=== PATIENT | male | born 1950 | race Caucasian/White ===

== ENCOUNTER 2022-05-28 10:17 | Outpatient (RCR) | payer MEDICAID, SELFPAY | END 2023-05-18 14:38 | disposition home or self-care (01) | LOC: MOW 10:17 | PROVIDERS: PCP Family Medicine; Visit Provider Family Medicine | DX: Z76.0 Encounter for issue of repeat prescription (principal) | CPT/HCPCS: S5170 ==

== ENCOUNTER 2022-11-18 13:32 | Emergency (ER) | payer OTHER, SELFPAY ==
[2022-11-18 13:44] VITALS: BP 131/68; PULSE 64; RESP 16; TEMP 36.2; O2SAT 96; BMI 32.4
--- NOTE | 2022-11-18 13:59 | CRLHL7_ITS ---
For Patients: As a result of the Century Cures Act, medical imaging exams and procedure reports are released immediately into your electronic medical record. You may view this report before your referring provider. If you have questions, please contact your health care provider. INDICATION: Headache and nausea. History of lymphoma. TECHNIQUE: CT head without contrast. COMPARISON: None. FINDINGS: CSF spaces: Within normal limits for age. Brain parenchyma: No intracranial bleed or mass effect. Moderate low density in the deep white matter. Duarte-white differentiation is preserved. Skull base and calvarium: The visualized paranasal sinuses and mastoid air cells demonstrate no acute or significant findings. The visualized orbits are grossly unremarkable. Atherosclerosis. Defect at the medial wall of the right orbit consistent with an old fracture. IMPRESSION: 1. No intracranial bleed or mass effect. 2. Nonspecific white matter disease, likely microangiopathy. Please note that all CT scans at this facility use dose modulation, iterative reconstruction, and/or weight-based dosing when appropriate to reduce radiation dose to as low as reasonably achievable. Dictated by Christian Lamb MD @ 11/18/2022 2:55:55 PM (Electronically Signed)
--- NOTE | 2022-11-18 14:00 | ED.GENADULT ---
HPI - General Adult General Date Seen: 11/18/22 Chief complaint: Nausea/Vomiting Stated complaint: Abdominal pain, headache, short of breath Time Seen by Provider: 11/18/22 13:36 Source: patient Mode of arrival: ambulatory Limitations: no limitations History of Present Illness HPI narrative: Patient is a 72-year-old male with a history of lymphoma remotely, he is here for evaluation of headache and nausea. Headache started about a week ago at least. He describes it as being in the back of his head and between his ears. He feels like he has been a little more unsteady than usual as well though does not describe true vertigo. Has not had falls. No trauma. Has not had any vomiting. For the past 4 days or so has had nausea. No abdominal pain. No fevers, chest pain, cough, difficulty breathing, sore throat, diarrhea, constipation, black or bloody stools. He is not taking any medication for headache. For the nausea he tried 1 dose of something he has at home which starts with a P, possibly prochlorperazine. He tried this on Tuesday and says it did not help. He has been drinking a lot of water but says that he gets meals on wheels and the food is unappetizing. Related Data Home Medications Medication Instructions Recorded Confirmed acetaminophen 325 mg tablet 325 mg PO Q6H PRN 11/18/22 11/18/22 (Tylenol) acyclovir 400 mg tablet 400 mg PO BID 11/18/22 11/18/22 famotidine 20 mg tablet 20 mg PO DAILY 11/18/22 11/18/22 ferrous sulfate 325 mg (65 mg 325 mg PO DAILY 11/18/22 11/18/22 iron) tablet fluticasone propionate 50 1 spray intranasal BID PRN 11/18/22 11/18/22 mcg/actuation nasal spray,suspension loratadine 10 mg tablet (Allergy 10 mg PO DAILY 11/18/22 11/18/22 Relief (loratadine)) melatonin 5 mg capsule mg 11/18/22 omeprazole 20 mg capsule,delayed 20 mg PO DAILY 11/18/22 11/18/22 release polyethylene glycol 3350 17 17 g PO DAILY 11/18/22 11/18/22 gram/dose oral powder (Gavilax) primidone 50 mg tablet 50 mg PO QHS 11/18/22 11/18/22 prochlorperazine maleate 10 mg 10 mg PO Q6-8H PRN 11/18/22 11/18/22 tablet (Compazine) spironolactone 25 mg tablet 25 mg PO BID 11/18/22 11/18/22 sulfamethoxazole-trimethoprim 11/18/22 tamsulosin 0.4 mg capsule (Flomax) 0.4 mg PO DAILY 11/18/22 11/18/22 trazodone 100 mg tablet 100 mg PO QHS PRN 11/18/22 11/18/22 venlafaxine 150 mg tablet,extended 150 mg PO DAILY 11/18/22 11/18/22 release 24 hr Allergies Allergy/AdvReac Type Severity Reaction Status Date / Time No Known Drug Allergies Allergy Verified 11/18/22 13:43 Review of Systems Status of ROS: Reports: 10 or more systems reviewed and unremarkable except as noted in History and below [facility] Social History Smoking Status: Current every day smoker What tobacco products do you use: cigarettes Smoking packs per day: 0.5 Smoking cigarettes per day: 10.0 How often do you have a drink containing alcohol: never AUDIT-C Alcohol total score: 0 Non-prescribed substance use: denies use service: Yes Exam Narrative: Exam Narrative: Vital signs as noted above. In general, an alert, nontoxic male. Head: Normocephalic, atraumatic. Eyes: Pupils are equal reactive. Extraocular movements are full. Conjunctivae are normal. No icterus. ENT: Mucous membranes are moist. Throat is normal. Neck: Supple without lymphadenopathy. Heart: Regular rate and rhythm. No murmur or rub. Lungs: Clear bilaterally. No increased work of breathing, crackles or wheezes. No CVA tenderness. Abdomen: Soft and nondistended, nontender to palpation. Tumor and. Extremities: Well perfused. No edema. No calf tenderness. Pulses intact. Neurologic: Patient is alert and oriented to person and place. Speech is fluent. Face is symmetric. Moves all extremities equally. Affect: Flat. Skin: Warm and dry. Well perfused. Const: Vital Signs, click to edit/add: Vital Signs - 24 hr 11/18/22 13:44 11/18/22 15:24 Temperature 97.2 F L 97.6 F Pulse Rate [Right Pulse Oximeter] 64 70 Respiratory Rate 16 16 Blood Pressure [Ri ght Upper Arm] 131/68 128/78 Pulse Oximetry 96 95 Oxygen Delivery Me thod Room Air Room Air Documenting provider has reviewed patient's vital signs: yes Course Course Hospital Course: I evaluated a number of labs and did a CT of the head looking for possible hemorrhage or mass. CT of the head was negative by my review and read as negative by Radiology aside from some chronic small-vessel ischemic changes. Labs looking for an infectious or metabolic cause for his symptoms were unrevealing. His white blood cell count is normal, hemoglobin 14.5. His electrolytes are entirely within normal limits, BUN 19, creatinine 1.3. Blood sugar was normal at 99, lactate was 1.2. LFTs were normal. CRP was 0.5. TSH is pending, lipase is 169. Urinalysis had 0-2 red cells and 0-2 white blood cells. COVID was negative. EKG by my review showed normal sinus rhythm ventricular rate of 60 without acute ischemic changes. His troponin was 0. Reviewed with him that I am not finding anything as a clear cause for his symptoms. He does not have any abdominal pain or tenderness, I think abdominal imaging is not necessary today. Discussed with him I would like him to be seen in clinic next week for recheck and determination of whether further evaluation is needed. If he has worsening symptoms at any time, severe pain, develops abdominal pain, vomiting, fever or other changes, return to the emergency department. He does feel better after fluids and Zofran. I am prescribing some Zofran for him to try at home and he can certainly use Tylenol or dose or 2 of ibuprofen for his headache if he decides that he would like to take something. He says he does not like to take pills. Vital Signs Vital signs: Initial Vital Signs Temperature 97.2 F L 11/18/22 13:44 Temperature Source Temporal Artery Scan 11/18/22 13:44 Pulse Rate 64 11/18/22 13:44 Pulse Rhythm Regular 11/18/22 13:44 Respiratory Rate 16 11/18/22 13:44 Blood Pressure 131/68 11/18/22 13:44 Blood Pressure Mean 89 11/18/22 13:44 Blood Pressure Position Sitting 11/18/22 13:44 Pulse Oximetry 96 11/18/22 13:44 Oxygen Delivery Method Room Air 11/18/22 13:44 Vital Signs Temperature 97.2 F L 11/18/22 13:44 Pulse Rate 64 11/18/22 13:44 Respiratory Rate 16 11/18/22 13:44 Blood Pressure 131/68 11/18/22 13:44 Pulse Oximetry 96 11/18/22 13:44 Oxygen Delivery Method Room Air 11/18/22 13:44 Temperature 97.6 F 11/18/22 15:24 Pulse Rate 70 11/18/22 15:24 Respiratory Rate 16 11/18/22 15:24 Blood Pressure 128/78 11/18/22 15:24 Pulse Oximetry 95 11/18/22 15:24 Oxygen Delivery Method Room Air 11/18/22 15:24 Medical Decision Making Lab Data Labs: Lab Results 11/18/22 11/18/22 11/18/22 Range/Units 13:59 14:13 14:20 WBC 5.35 (4.50-11.00) K/uL RBC 4.63 (4.30-5.90) m/uL Hgb 14.5 (13.5-17.5) gm/dL Hct 42.2 (37.0-53.0) % MCV 91 (80-100) fL MCH 31 (26-34) pg MCHC 34 (32-36) gm/dL RDW Coeff of Aidee 12.3 (11.5-15.5) % Plt Count 226 (140-440) K/uL Neut % (Auto) 65.8 (42.0-72.0) % Lymph % (Auto) 22.8 (20-44) % Col[place]itt % (Auto) 7.5 (0.0-11.0) % Eos % (Auto) 2.4 (0.0-7.0) % Baso % (Auto) 1.1 (0.0-3.0) % Neut # (Auto) 3.52 (1.7-7.0) K/uL Lymph # (Auto) 1.22 (0.90-2.90) K/uL [place] # (Auto) 0.40 (0.00-0.90) K/UL Eos # (Auto) 0.13 (0.00-0.50) K/uL Baso # (Auto) 0.06 (0.00-0.30) K/uL Abs Immat Gran (auto) 0.02 (0.00-0.30) K/uL Imm/Tot Granulo (auto) 0.4 % Sodium 135 (135-149) mmol/L Potassium 4.0 (3.6-5.1) mmol/L Chloride 104 (96-114) mmol/L Carbon Dioxide 23 (20-32) mmol/L BUN 19 (7-30) mg/dL Creatinine 1.3 (0.5-1.5) mg/dL Estimated Creat Clear 50.42 Estimated GFR 59 ml/min Glucose 99 (60-115) mg/dL Lactate 1.2 (0.5-1.9) mmol/L Calcium 9.6 (8.4-10.6) mg/dL Total Bilirubin 0.4 (0.1-1.5) mg/dL Direct Bilirubin 0.1 (0.0-0.5) mg/dL AST 28 (12-35) U/L ALT 28 (4-50) U/L Alkaline Phosphatase 88 (40-150) U/L C-Reactive Protein 0.5 (0.5-1.0) mg/dL Total Protein 7.2 (6.0-8.3) g/dL Albumin 4.2 (3.3-5.0) g/dL Lipase 169 (23-300) U/L Urine Color (Yellow) Urine Appearance (Clear) Urine pH (5.0-8.5) Ur Specific Bowman (1.000-1.030) Urine Protein (Negative) Urine Glucose (UA) (Negative) Urine Ketones (Negative) Urine Blood (Negative) Urine Nitrite (Negative) Urine Bilirubin (Negative) Urine Urobilinogen (0.2-1.0) Ur Leukocyte Esterase (Negative) Urine RBC (0-2) Urine WBC (0-5) Ur Squamous Epith Cells (None-Few) Urine Bacteria (None) SARS-CoV-2 (PCR) Negative SARS-CoV-2 (Negative) Influenza Type A (PCR) Negative PCR FLU A (Negative) Influenza Type B (PCR) Negative PCR FLU B (Negative) RSV (PCR) Negative PCR RSV (Negative) POC Troponin I 0.00 L (0.01-0.04) ng/ml 11/18/22 Range/Units 15:00 WBC (4.50-11.00) K/uL RBC (4.30-5.90) m/uL Hgb (13.5-17.5) gm/dL Hct (37.0-53.0) % MCV (80-100) fL MCH (26-34) pg MCHC (32-36) gm/dL RDW Coeff of Aidee (11.5-15.5) % Plt Count (140-440) K/uL Neut % (Auto) (42.0-72.0) % Lymph % (Auto) (20-44) % Colquitt % (Auto) (0.0-11.0) % Eos % (Auto) (0.0-7.0) % Baso % (Auto) (0.0-3.0) % Neut # (Auto) (1.7-7.0) K/uL Lymph # (Auto) (0.90-2.90) K/uL [place] # (Auto) (0.00-0.90) K/UL Eos # (Auto) (0.00-0.50) K/uL Baso # (Auto) (0.00-0.30) K/uL Abs Immat Gran (auto) (0.00-0.30) K/uL Imm/Tot Granulo (auto) % Sodium (135-149) mmol/L Potassium (3.6-5.1) mmol/L Chloride (96-114) mmol/L Carbon Dioxide (20-32) mmol/L BUN (7-30) mg/dL Creatinine (0.5-1.5) mg/dL Estimated Creat Clear Estimated GFR ml/min Glucose (60-115) mg/dL Lactate (0.5-1.9) mmol/L Calcium (8.4-10.6) mg/dL Total Bilirubin (0.1-1.5) mg/dL Direct Bilirubin (0.0-0.5) mg/dL AST (12-35) U/L ALT (4-50) U/L Alkaline Phosphatase (40-150) U/L C-Reactive Protein (0.5-1.0) mg/dL Total Protein (6.0-8.3) g/dL Albumin (3.3-5.0) g/dL Lipase (23-300) U/L Urine Color Yellow (Yellow) Urine Appearance Clear (Clear) Urine pH 5.5 (5.0-8.5) Ur Specific Bowman 1.025 (1.000-1.030) Urine Protein Negative (Negative) Urine Glucose (UA) Negative (Negative) Urine Ketones Negative (Negative) Urine Blood Negative (Negative) Urine Nitrite Negative (Negative) Urine Bilirubin 1+ A (Negative) Urine Urobilinogen 0.2 (0.2-1.0) Ur Leukocyte Esterase Negative (Negative) Urine RBC 0-2 (0-2) Urine WBC 0-2 (0-5) Ur Squamous Epith Cells Few (None-Few) Urine Bacteria None (None) SARS-CoV-2 (PCR) (Negative) Influenza Type A (PCR) (Negative) Influenza Type B (PCR) (Negative) RSV (PCR) (Negative) POC Troponin I (0.01-0.04) ng/ml Discharge Plan Discharge Clinical Impression: Headache, Nausea Patient Disposition: Home, Self-Care Condition: Improved Instructions: General Headache (ED) Additional Instructions: All of your test today are normal, your blood counts, kidney function, liver function, electrolytes etcetera he are within normal limits. A CT scan of your head is likewise normal. For now, I am prescribing a different nausea medicine for you to try. I would recommend that you follow-up with your primary doctor next week for recheck. If at any point you develop new symptoms such as abdominal pain, fever, vomiting, or other worsening, return to the emergency department for re-evaluation. Your thyroid level is pending, we will call you if anything needs to be addressed. If you change your mind and decide you would like to take something for headache, you can try Tylenol or a dose or 2 of ibuprofen. Prescriptions: No Action acyclovir 400 mg tablet 400 mg PO BID famotidine 20 mg tablet 20 mg PO DAILY ferrous sulfate 325 mg (65 mg iron) tablet 325 mg PO DAILY omeprazole 20 mg capsule,delayed release(DR/EC) 20 mg PO DAILY primidone 50 mg tablet 50 mg PO QHS spironolactone 25 mg tablet 25 mg PO BID sulfamethoxazole-trimethoprim Rx Instructions: Takes one tablet PO BID on Tuesdays and Fridays tamsulosin [Flomax] 0.4 mg capsule 0.4 mg PO DAILY venlafaxine 150 mg tablet extended release 24hr 150 mg PO DAILY trazodone 100 mg tablet 100 mg PO QHS PRN fluticasone propionate 50 mcg/actuation spray,suspension 1 spray intranasal BID PRN Rx Instructions: administer into each nostril loratadine [Allergy Relief (loratadine)] 10 mg tablet 10 mg PO DAILY polyethylene glycol 3350 [Gavilax] 17 gram/dose powder 17 g PO DAILY prochlorperazine maleate [Compazine] 10 mg tablet 10 mg PO Q6-8H PRN melatonin 5 mg capsule acetaminophen [Tylenol] 325 mg tablet 325 mg PO Q6H PRN Follow Up/Referrals: Camron Dos Santos MD [Staff Physician] - Stand Alone Forms[facility]
[2022-11-18 14:19] LABS: Lactate Sepsis w/Reflex* 1.2 mmol/L (0.5-1.9)
[2022-11-18 14:23] LABS: Basophils Absolute Auto 0.06 K/uL (0.00-0.30); Basophils Percent Auto 1.1 % (0.0-3.0); Eosinophils Absolute Auto 0.13 K/uL (0.00-0.50); Eosinophils Percent Auto 2.4 % (0.0-7.0); Hematocrit 42.2 % (37.0-53.0); Hemoglobin* 14.5 gm/dL (13.5-17.5); Immature Granulocytes Abs Auto 0.02 K/uL (0.00-0.30); Immature Granulocytes Pct Auto 0.4 %; Lymphocytes Absolute Auto 1.22 K/uL (0.90-2.90); Lymphocytes Percent Auto 22.8 % (20-44); Mean Corpuscular HGB Conc 34 gm/dL (32-36); Mean Corpuscular Hemoglobin 31 pg (26-34); Mean Corpuscular Volume 91 fL (80-100); Monocytes Percent Auto 7.5 % (0.0-11.0); Neutrophils Absolute Auto 3.52 K/uL (1.7-7.0); Neutrophils Percent Auto 65.8 % (42.0-72.0); Platelet Count* 226 K/uL (140-440); RDW Coefficient of Variation % 12.3 % (11.5-15.5); Red Blood Count 4.63 m/uL (4.30-5.90); Slide Review Reflex No; White Blood Count* 5.35 K/uL (4.50-11.00)
[2022-11-18] MEDS: ONDANSETRON 2 MG/ML inj 4 MG IVP (14:30)
[2022-11-18] MEDS: 0.9 % SODIUM CHLORIDE 1000 ml 1,000 ML IV (14:30)
[2022-11-18 15:03] LABS: PCR FLU A Negative PCR FLU A (Negative); PCR FLU B Negative PCR FLU B (Negative); PCR RSV Negative PCR RSV (Negative)
[2022-11-18 15:04] LABS: SARS PCR* Negative SARS-CoV-2 (Negative)
[2022-11-18 15:15] LABS: Appearance Urine Clear (Clear); Bilirubin Urine 1+ (Negative); Blood Urine Negative (Negative); Color Urine Yellow (Yellow); Glucose Urine Negative (Negative); Ketones Urine Negative (Negative); Leukocyte Esterase Urine Negative (Negative); Nitrite Urine Negative (Negative); Protein Urine Negative (Negative); Specific Gravity Urine 1.025 (1.000-1.030); Urobilinogen Urine 0.2 (0.2-1.0); pH Urine 5.5 (5.0-8.5)
[2022-11-18 15:24] VITALS: BP 128/78; PULSE 70; RESP 16; TEMP 36.4; O2SAT 95
[2022-11-18 15:27] LABS: Albumin* 4.2 g/dL (3.3-5.0); Chloride* 104 mmol/L (96-114); Sodium* 135 mmol/L (135-149)
[2022-11-18 15:29] LABS: Creatinine* 1.3 mg/dL (0.5-1.5); Est. Creatinine Clearance* 50.42; Estimated Glomerular Filt Rate 59 ml/min
[2022-11-18 15:30] LABS: Alkaline Phosphatase* 88 U/L (40-150); Aspartate Amino Transferase* 28 U/L (12-35); Bilirubin Direct* 0.1 mg/dL (0.0-0.5); Bilirubin Total* 0.4 mg/dL (0.1-1.5); Blood Urea Nitrogen* 19 mg/dL (7-30); Carbon Dioxide* 23 mmol/L (20-32); Glucose* 99 mg/dL (60-115); Lipase* 169 U/L (23-300); Total Protein* 7.2 g/dL (6.0-8.3)
[2022-11-18 15:31] LABS: Alanine Aminotransferase* 28 U/L (4-50); Calcium* 9.6 mg/dL (8.4-10.6)
[2022-11-18 15:33] LABS: C Reactive Protein* 0.5 mg/dL (0.5-1.0)
[2022-11-18 15:37] LABS: RBC Urine 0-2 (0-2); Squamous Epithelial Cell Urine Few (None-Few); WBC Urine 0-2 (0-5)
== END 2022-11-18 15:57 | disposition home or self-care (01) ==
PROVIDERS: Emergency Provider Emergency Medicine; PCP Family Medicine
DX: R51.9 Headache, unspecified (principal); R11.0 Nausea
CPT/HCPCS: 36415; 70450; 80048; 80076; 81001; 83605; 83690; 84443; 84484; 85025; 86140; 87631; 93005; 96374; 99284; J2405; J7030

== ENCOUNTER 2022-12-22 13:52 | Outpatient (CLI) | payer OTHER, SELFPAY ==
--- NOTE | 2022-12-22 14:00 | CRLHL7_ITS ---
For Patients: As a result of the 21st Century Cures Act, medical imaging exams and procedure reports are released immediately into your electronic medical record. You may view this report before your referring provider. If you have questions, please contact your health care provider. Indication: DIFFUSE NON HODGKINS LYMPHOMA Technique: Postcontrast CT chest, abdomen and pelvis. 103 cc Isovue 370 intravenous contrast. Please note that all CT scans at this facility use dose modulation, iterative reconstruction, and/or weight-based dosing when appropriate to reduce radiation dose to as low as reasonably achievable. Comparison: 12/21/2018, 11/10/2018 Findings: In the chest, there is no thyroid lesion. No mediastinal, hilar or axillary adenopathy. Breast tissue is similar with gynecomastia. Hiatal hernia is present measuring 4.8 cm. No fracture is present. Mild emphysematous changes in both lung apices. Linear subsegmental atelectasis within the lingula. No infiltrate or edema. No effusion or pneumothorax. No suspicious pulmonary nodule. No fracture. In the abdomen, subcentimeter cysts are present within the liver. No ascites. Decreased size of the spleen, now measuring 8.4 cm. Heterogeneous enhancement noted. Adrenal glands noted. No hydronephrosis. No solid renal mass or stone. Pancreas is normal. Vascular calcifications. No aneurysm. Resolution of previously noted ascites. Resolution the bulky retroperitoneal adenopathy with a few scattered subcentimeter lymph nodes. No bowel obstruction. Gallbladder appears unremarkable. No biliary obstruction. No solid intrahepatic mass. In the pelvis, the bladder is incompletely distended. No pelvic free fluid. Small nodular density in the right lower pelvis measuring 1.2 cm, 2/249. Appendix normal. Normal ileum. No pelvic sidewall or inguinal adenopathy. Degenerative disc disease L4-5. No vertebral body compression fracture. Impression: 1.2 cm right perirectal lymph node is similar to the prior study. Resolution of previously noted bulky retroperitoneal adenopathy. Also resolution of intra-abdominal and intrapelvic ascites. Resolution of previously noted splenomegaly and pancreas enlargement. The spleen is normal incised with patchy areas of scarring noted. The pancreas is also normal on the current study. Resolution of the previously noted right pleural effusion. Mild atelectasis within the lingula. No suspicious pulmonary nodule. 4.8 cm hiatal hernia. Stable subcentimeter intrahepatic cysts. Please note that all CT scans at this facility use dose modulation, iterative reconstruction, and/or weight-based dosing when appropriate to reduce radiation dose to as low as reasonably achievable. Dictated by Narciso Layne MD @ 12/23/2022 11:35:36 AM (Electronically Signed)
[2022-12-22 14:32] LABS: Creatinine* 1.4 mg/dL (0.5-1.5); Estimated Glomerular Filt Rate 54 ml/min
== END 2022-12-22 13:53 | disposition home or self-care (01) ==
LOC: CT 13:53
PROVIDERS: PCP Family Medicine; Visit Provider Internal Medicine
DX: C83.39 Diffuse large B-cell lymphoma, extranodal and solid organ sites (principal); K44.9 Diaphragmatic hernia without obstruction or gangrene; K76.89 Other specified diseases of liver
CPT/HCPCS: 36415; 71260; 74177; 82565; Q9967

== ENCOUNTER → 2024-05-19 07:40 | Outpatient (RCR) | payer MEDICAID, SELFPAY | END | disposition home or self-care (01) | LOC: MOW 05-19 10:06 | PROVIDERS: PCP Family Medicine; Visit Provider Family Medicine | DX: Z76.0 Encounter for issue of repeat prescription (principal) | CPT/HCPCS: S5170 ==

== ENCOUNTER 2024-11-01 15:26 | Observation (INO) | payer OTHER, SELFPAY ==
--- OUTSIDE RECORDS SUMMARY | 2015-07-02 03:56 | XMS_ITS | Continuity of Care Document ---
Author Name [facility] Organization [facility] Care Team Providers Care Lead Web Application Developer Name Role Phone [facility] Unavailable Unavailable Problems Combined list of problems from Department of Defense and Veterans Affairs facilities. It does not include entries that were removed or entered in error. Problem Status Onset Date Problem Type Date of Resolution Comments Source Alc Dependence,Remiss Active Condition [facility] Anxiety (SNOMED CT 12775614) Active Condition [facility] Back pain Active Condition [facility] Chest pain Active Condition [facility] Headaches Active Condition [facility] Hip pain Active Condition [facility] History of polyp of colon (SNOMED CT 817239684) Active Condition Mar 17, 2010 Entered By: RUBEN SMITH Comment: Two 10 mm polyps in the hepatic flexure [facility] Entered By: RUBEN SMITH Comment: One 6 mm polyp at 20 cm proximal to the anusNov 2009 Entered By: RUBEN SMITH Comment: Multiple 2 to 3 mm polyps at 20 cm proximal to the anusMay 2015 Entered By: JOHNNIE MARIO Comment: 2011 Cscope w/adenoma/h yperplastic ; f/u rec 3yr [facility] Hyperlipidemia Active Condition [facility] Insomnia NEC Active Condition [facility] Klinefelter's Syndrome Active Condition [facility] Knee pain Active Condition [facility] Moderate recurrent major depression (SNOMED CT 81098814) Active Condition [facility] Osteoarthritis Active Condition Nov 172009 Entered By: RUBEN SMITH Comment: brian Thumbs [facility] Personal History of Alcoholism Active Condition Dec 12, 2009 Entered By: RUBEN SMITH Comment: Quit 1975 [facility] Tobacco user (SNOMED CT 505950801) Active Condition Dec 12, 2009 Entered By: RUBEN SMITH Comment: 1 ppd currently, 30 pack year history [facility] Immunizations Combined list of available immunizations from the Department of Defense and Veterans Affairs facilities. 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 Twisting Machine Operator Status Comments Source INFLUENZA, SEASONAL, INJECTABLE 2014 141 complet ed [facility] INFLUENZA, UNSPECIFIED FORMULATION 2011 88 complet ed [facility] ZOSTER LIVE 2011 121 complet ed [employer],165 2AA,21JAN 13 [facility] INFLUENZA, UNSPECIFIED FORMULATION 2010 88 complet ed [facility] INFLUENZA, UNSPECIFIED FORMULATION 2008 88 complet ed [facility] TDAP 2008 115 complet ed [facility] PNEUMOCOCCAL, UNSPECIFIED FORMULATION 2007 109 complet ed Local clinic [facility] Social History Combined list of available smoking, tobacco, and other social history from Department of Defense and Veterans Affairs facilities. Social History Type Response Date Comment Sour e Tobacco smoking status NHIS CURRENT TOBACCO USER 07/02/2015 [facility] History of tobacco use CURRENT TOBACCO USER 02/22/2012 [facility] History of tobacco use CURRENT TOBACCO USER 12/25/2010 [facility] History of tobacco use CURRENT TOBACCO USER 12/12/2009 [facility]
--- OUTSIDE RECORDS SUMMARY | 2015-07-02 03:56 | XMS_ITS | Continuity of Care Document ---
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 It does not include entries that were removed or entered in error. Problem Status Onset Date Problem Type Date of Resolution Comments Source Alc Dependence,Remiss Active Condition [place] [facility] Anxiety (SNOMED CT 89139556) Active Condition [facility] Back pain Active Condition [facility] Chest pain Active Condition [facility] Headaches Active Condition [facility] Hip pain Active Condition [facility] History of polyp of colon (SNOMED CT 065796526) Active Condition Mar 17, 2010 Entered By: [...] Cscope w/adenoma/h yperplastic ; f/u rec 3yr [facility] Hyperlipidemia Active Condition [facility] Insomnia NEC Active Condition [facility] Klinefelter's Syndrome Active Condition [facility] Knee pain Active Condition [facility] Moderate recurrent major depression (SNOMED CT 20702161) Active Condition [facility] Osteoarthritis Active Condition Nov 172009 Entered By: RUBEN SMITH Comment: brian Thumbs [facility] Personal History of Alcoholism Active Condition Dec 12, 2009 Entered By: RUBEN SMITH Comment: Quit 1975 [facility] Tobacco user (SNOMED CT 376350397) Active Condition Dec 12, 2009 Entered By: RUBEN SMITH Comment: 1 ppd currently, 30 pack year history [facility] Immunizations Combined list of available immunizations from the Department of Defense and Veterans Affairs facilities. 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 Status Comments Source INFLUENZA, SEASONAL, INJECTABLE 2014 141 complet ed [facility] INFLUENZA, UNSPECIFIED FORMULATION 2011 88 complet ed [facility] ZOSTER LIVE 2011 121 complet ed [employer],165 2AA,21JAN 13 [facility] INFLUENZA, UNSPECIFIED FORMULATION 2010 88 complet ed [facility] INFLUENZA, UNSPECIFIED FORMULATION 2008 88 complet ed [facility] TDAP 2008 115 complet ed [facility] PNEUMOCOCCAL, UNSPECIFIED FORMULATION 2007 109 complet ed Local clinic [facility] Social History Combined list of available smoking, tobacco, and other social history from Department of Defense and Veterans Affairs facilities. Social History Type Response Date Comment Sour e Tobacco smoking status NHIS CURRENT TOBACCO USER 07/02/2015 [facility] History of tobacco use CURRENT TOBACCO USER 02/22/2012 [facility] History of tobacco use CURRENT TOBACCO USER 12/25/2010 [facility] History of tobacco use CURRENT TOBACCO USER 12/12/2009 [facility]
--- OUTSIDE RECORDS SUMMARY | 2024-09-14 08:01 | XMS_ITS | Continuity of Care Document ---
Author Organization [facility] Address [address] [address] [place] [address] Phone Care Team Providers Care Paramedic Name Role Phone Bhargavi Melendez CRNA Unavailable Unavailable Medications Medication Instructions Dosage Effective Dates (start - stop) Status Comments acyclovir 400 mg tablet take 1 tablet by oral route every 8 hours 400 MG - Active famotidine 20 mg tablet take 1 tablet by oral route 2 times every day 20 MG - Active ferrous sulfate 325 mg (65 mg iron) tablet take 1 tablet by oral route every day 325 MG - Active nicotine (polacrilex) 4 mg buccal mini lozenge - Active omeprazole 20 mg tablet,delayed release take 1 tablet by oral route every day 1 tablet - Active primidone 50 mg tablet take 2 tablet by oral route every day at bedtime for 3 days , then twice daily for 3 days, then three times daily for 3 days 100 MG - Active primidone 50 mg tablet take 2 tablet by oral route every day at bedtime for 3 days , then twice daily for 3 days, then three times daily for 3 days 100 MG - Active rosuvastatin 40 mg tablet take 1 tablet by oral route every day 40 MG - Active spironolactone 25 mg tablet take 1 tablet by oral route every day 25 MG - Active sulfamethoxazole 800 mg-trimethoprim 160 mg tablet take 1 tablet by oral route every 12 hours 1.00 tablet - Active tamsulosin 0.4 mg capsule take 1 capsule by oral route every day 1/2 hour following the same meal each day 0.4 MG - Active venlafaxine ER 150 mg capsule,extended release 24 hr take 1 capsule by oral route every day 150 MG - Active Dulcolax (bisacodyl) 5 mg tablet,delayed release Take by oral route as directed per colonoscopy prep instructions from [facility] - Active Procedure Date: 09/14/24 simethicone 80 mg chewable tablet Take by oral route as directed per colonoscopy prep instructions from [facility] - Active Procedure Date: polyethylene glycol 3350 17 gram/dose oral powder Take by oral route as directed per colonoscopy prep instructions from [facility] - Active Procedure: 09/14/24Please dispense 2-8.3oz bottles magnesium citrate oral solution Take by oral route as directed per colonoscopy prep instructions from [facility] - Active Procedure: 09/14/24Please dispense 1-10oz bottle Procedures Procedure Date Colonoscopy Flex; W/remov Les- 25 Level Iv-surg Path Gross/micro 25 Init Hosp-da E&m Mod Severity 9 Subsqt Hosp-da E&m Minr Compl 9 Init Hosp-da E&m Mod Severity 9 Sigmoidoscopy Flex; Dx (dec Pr 19 Moderate sedation, initial 15 minutes Au Subsqt Hosp-da E&m Minr Compl 9 Init Hosp-da E&m Mod Severity 9 Subsqt Hosp-da E&m Minr Compl 9 Advance Directives Directive Yes / No Effective Date File Name No Information Encounters Encounter Description Practice Location Reason(s) For Visit Diagnoses Date Provider Providers Copied on Encounter [facility] [address] [address], [place], [place], [address], [place] tel:[phone] [facility] No Information 5 Nora Burk. [address] [facility], [place], [place], [address], [place]. tel:[phone] Referring Provider: Patrice Donohue MD, [address] [facility] [address], [place], [address]. tel:[phone] [facility], [address] [address], [place], [address], [place] tel:[phone] [facility] Colorectal polypsInterna l hemorrhoidsEn counter for screening for malignant neoplasm of colonBenign neoplasm of ascending colonBenign neoplasm of sigmoid colonOther fecal abnormalities 5 Charanjit Ibrahim. [address] [facility], [facility] [address], [place], [address], [place]. tel:[phone] Referring Provider: Marin Ramirez MD R, [facility] [address], [place], [address]. tel:[phone] [facility], [address] [address], [place], [address], [place] tel:[phone] [facility] No Information 5 Charanjit Ibrahim. [address] [facility], [facility] [address], [place], [address], [place]. [phone] [facility], [address] [address], [place], [address], [place] tel:[phone] [facility] No Information 5 Bernard Nowak. [address] [facility], [facility] [address], [place], [place], [address], [place]. tel:[phone] Init Hosp-da E&m Mod Severity [facility], [address] [address], [place], [address], [place] tel:[phone] [facility] No Information 9 Meka ACOSTA [facility]. [address] [facility], [facility] [address], [place], [address], [place]. tel:[phone] Referring Provider: Shaniqua spivey MD, [address], [place], [address]. tel:[phone] Subsqt Hosp-da E&m Minr Compl [facility], [address] [address], [place], [address], [place] tel:[phone] [facility] No Information Hetal Singh. [address] [facility], [facility] [address], [place], [address], [place]. tel:[phone] Referring Provider: Samantha Burris, [address] [facility] [address], [place], [address]. [phone] Init Hosp-da E&m Mod Severity [facility], [address] [address], [facility], [address], [place] tel:[phone] [facility] No Information Guille Segura. [address] [facility], [address], [id number], [place]. tel:[phone] Referring Provider: Colton Marie, [address], [address]. [phone] Subsqt Hosp-da E&m Minr Compl [facility], [address] [address], [facility], [address], [place] tel:[phone] [facility] No Information 9 Basilia Anderson. [address] [facility], [facility] [address], [place], [address], [place]. tel:[phone] Referring Provider: Narciso Alcantar, [address] [place], [address]. tel:[phone] Init Hosp-da E&m Mod Severity [facility], [address] [address], [facility], [address], [place] tel:[phone] [facility] No Information 9 No Information Referring Provider: Narciso Alcantar, [address] [place], [address]. tel:[phone] Family History Family Member Type Diagnosis Age At Onset No Information Immunizations Vaccine Date Status Comments SARS-COV-2 (COVID-19) vaccin e, mRNA, spike protein, LNP, preservative free, 50 mcg/0.5 mL dose administered Note: [facility] bi-direct ional interface ; Source: Other Registry tetanus toxoid, reduced diphtheria toxoid, and acellular pertussis vaccine, adsorbed administered Note: [facility] b i-directional interface ; Source: Other Registry Influenza, adjuvanted, inactivated, trivalent, injectable, preservative free administered Note: [facility] bi-directional interface ; Source: Other Registry SARS-COV-2 (COVID-19) vaccin e, mRNA, spike protein, LNP, preservative free, 50 mcg/0.5 mL dose administered Note: [facility] bi-direct ional interface ; Source: Other Registry SARS-COV-2 (COVID-19) vaccin e, mRNA, spike protein, LNP, preservative free, 50 mcg/0.5 mL dose administered Note: [facility] bi-direct ional interface ; Source: Other Registry SARS-COV-2 (COVID-19) vaccin e, mRNA, spike protein, LNP, preservative free, 50 mcg/0.5 mL dose administered Note: [facility] bi-direct ional interface ; Source: Other Registry Influenza, high-dose, split virus, quadrivalent, injectable, preservative free administered Note: [facility] bi-direct ional interface ; Source: Other Registry SARS-COV-2 (COVID-19) vaccin e, mRNA, spike protein, LNP, preservative free, 30 mcg/0.3mL dose, rigoberto-sucrose formulation administered Note: [facility] C bi- directional interface ; Source: Other Registry SARS-COV-2 (COVID-19) vaccin e, mRNA, spike protein, LNP, preservative free, 30 mcg/0.3mL dose administered Note: [facility] bi-direct ional interface ; Source: Other Registry SARS-COV-2 (COVID-19) vaccin e, mRNA, spike protein, LNP, preservative free, 30 mcg/0.3mL dose administered Note: [facility] bi-direct ional interface ; Source: Other Registry SARS-COV-2 (COVID-19) vaccin e, mRNA, spike protein, LNP, preservative free, 30 mcg/0.3mL dose administered Note: [facility] bi-direct ional interface ; Source: Other Registry Influenza, high-dose, split virus, quadrivalent, injectable, preservative free administered Note: [facility] bi-direct ional interface ; Source: Other Registry Influenza, adjuvanted, inactivated, trivalent, injectable, preservative free administered Note: [facility] bi-directional interface ; Source: Other Registry Pneumovax 23 administered Note: [facility] bi-d irectional interface ; Source: Other Registry Influenza, high-dose, split virus, trivalent, injectable, preservative free administered Note: [facility] bi-direct ional interface ; Source: Other Registry Afluria Qd administered Note: [facility] bi-directional interface ; Source: Other Registry Prevnar administered Note: [facility] bi-d irectional interface ; Source: Other Registry Afluria Qd administered Note: [facility] bi-directional interface ; Source: Other Registry Influenza administered Note: [facility] bi-d irectional interface ; Source: Other Registry influenza virus vaccine, unspecified formulation administered Note: [facility] bi-di rectional interface ; Source: Other Registry Afluria Qd administered Note: [facility] bi-directional interface ; Source: Other Registry zoster vaccine, live administered Note: [facility] bi-directional interface ; Source: Other Registry Influenza, split virus, trivalent, injectable, contains preservative administered Note: [facility] bi-direct ional interface ; Source: Other Registry Influenza, split virus, trivalent, injectable, preservative free administered Note: [facility] bi-direct ional interface ; Source: Other Registry tetanus toxoid, reduced diphtheria toxoid, and acellular pertussis vaccine, adsorbed administered Note: [facility] b i-directional interface ; Source: Other Registry Influenza, split virus, trivalent, injectable, contains preservative administered Note: [facility] bi-direct ional interface ; Source: Other Registry Pneumovax 23 administered Note: [facility] bi-d irectional interface ; Source: Other Registry Payers Payer name Insurance type Covered libertarian ID Authoranne mariea chris(s) Jessica [facility] 16 [id number] Social History Type Description Quantity Date Captured Comments Sex Male Smoking Status No Information Chief Complaint And Reason For Visit No Information Reason For Referral Reason For Referral No Information Plan Of Treatment Date Type Action Status Referral Ordered: Colonoscopy Appointment date/timeframe: 09/15/2027 ordered History Of Present Illness Encounter Date Complaint History Of Prese nt Illness No Information Functional Status Date Functional Assessmen t No Information Instructions Date Instruction Additional Infor mation Colon Cancer Prevention Related to Colorectal polyps Colon Polyps Related to Color ectal polyps Hemorrhoids Related to Color ectal polyps Assessments Type Assessment Date No Information Patient Care Teams Name Effective Dates (start - stop) Status Members No Information
--- OUTSIDE RECORDS SUMMARY | 2024-09-14 08:01 | XMS_ITS | Continuity of Care Document ---
Author Organization [facility] Address [address] [address] [place] [address] Phone Care Team Providers [employer] Metals Sales Representative Name Role Phone Bhargavi Melendez CRNA Unavailable [...] as directed per colonoscopy prep instructions from [facility] - Active Procedure Date: 09/14/24 simethicone 80 mg chewable tablet Take by oral route as directed per colonoscopy prep instructions from [facility] - Active Procedure Date: polyethylene glycol 3350 17 gram/dose oral powder Take by oral route as directed per colonoscopy prep instructions from [facility] - Active Procedure: 09/14/24Please dispense 2-8.3oz bottles magnesium citrate oral solution Take by oral route as directed per colonoscopy prep instructions from [facility] - Active Procedure: 09/14/24Please dispense 1-10oz bottle [...] Diagnoses Date Provider Providers Copied on Encounter [facility] [address] [address], [place], [place], [address], [place] tel:[phone] [facility] No Information 5 oNra Burk. [address] [facility], [place], [place], [address], [place]. tel:[phone] Referring Provider: Patrice Donohue MD, [address] [facility] [address], [place], [address]. tel:[phone] [facility], [address] [address], [place], [address], [place] tel:[phone] [facility] Colorectal polypsInterna l hemorrhoidsEn counter for screening for malignant neoplasm of colonBenign neoplasm of ascending colonBenign neoplasm of sigmoid colonOther fecal abnormalities 5 Charanjit Ibrahim. [address] [facility], [facility] [address], [place], [address], [place]. tel:[phone] Referring Provider: Marin Ramirez MD R, [facility] [address], [place], [address]. tel:[phone] [facility], [address] [address], [place], [place], [address], [place] tel:[phone] [facility] No Information 5 Charanjit Ibrahim. [address] [facility], [facility] [address], [place], [address], [place]. [phone] [facility], [address] [address], [place], [address], [place] tel:[phone] [facility] No Information 5 Bernard Nowak. [address] [facility], [facility] [address], [place], [place], [address], [place]. tel:[phone] Init Hosp-da E&m Mod Severity [facility], [address] [address], [place], [address], [place] tel:[phone] [facility] No Information 9 Meka ACOSTA [facility]. [address] [facility], [facility] [address], [place], [address], [place]. tel:[phone] Referring Provider: Shaniqua spivey MD, [address], [place], [address]. tel:[phone] Subsqt Hosp-da E&m Minr Compl [facility], [address] [address], [place], [place], [address], [place] tel:[phone] [facility] No Information Hetal Singh. [address] [facility], [facility] [address], [place], [address], [place]. tel:[phone] Referring Provider: Samantha Burris, [address] [facility] [address], [place], [address]. [phone] Init Hosp-da E&m Mod Severity [facility], [address] [address], [facility], [address], [place] tel:[phone] [facility] No Information Guille Segura. [address] [facility], [address], [address], [place]. tel:[phone] Referring Provider: Colton Marie, [address], [address]. [phone] Subsqt Hosp-da E&m Minr Compl [facility], [address] [address], [facility], [place], [address], [place] tel:[phone] [facility] No Information 9 Basilia Anderson. [address] [facility], [facility] [address], [place], [address], [place]. tel:[phone] Referring Provider: Narciso Alcantar, [address] [place] [place], [address]. tel:[phone] Init Hosp-da E&m Mod Severity [facility], [address] [address], [facility], [address], [place] tel:[phone] [facility] No Information 9 No Information Referring Provider: Narciso Alcantar, [address] [place], [address]. tel:[phone] Family History Family Member Type Diagnosis Age [...] Registry Payers Payer name Insurance type Covered democrat ID Authoranne mariea chris(s) Jessica [facility] 16 [id number] Social History Type Description Quantity Date Captured [...]
--- OUTSIDE RECORDS SUMMARY | 2024-11-01 15:28 | XMS_ITS ---
Author Name Interface, [id number] lity Address [address] [place] [address] Oncology Address [address] [place] [address] Allergies and Adverse Reactions Plan Reason for Visit Encounters Immunizations Diagnostic Results Medications Problems Vital Signs
--- OUTSIDE RECORDS SUMMARY | 2024-11-01 15:29 | XMS_ITS ---
Author Name Interface, H2Wrdpeor lity Address [address] [place] [address] [address] [place] [address] [facility] Oncology Address [address] [place] [address] [address] [place] [address] Allergies and Adverse Reactions Medication/Group Name Reaction Severity Date No known allergies Plan Date Type Value 12/09/2022 APPOINTMENT RECONSULT 20 MIN 12/09/2022 APPOINTMENT LAB 10 MIN 11/30/2022 APPOINTMENT RECONSULT 20 MIN 11/30/2022 APPOINTMENT LAB 10 MIN 03/26/2022 APPOINTMENT LAB 15 MIN 03/26/2022 APPOINTMENT OV 20 MIN 09/24/2021 APPOINTMENT LAB 15 MIN 09/24/2021 APPOINTMENT OV 20 MIN 09/24/2021 LABORDER LDH panel 09/24/2021 LABORDER CMP 09/24/2021 LABORDER CBC w/ auto diff 03/26/2022 LABORDER CBC w/ auto diff 03/26/2022 LABORDER CMP 03/26/2022 LABORDER LDH panel 12/09/2022 LABORDER LDH panel 12/09/2022 LABORDER CMP 12/09/[address] chest/abdomen /pelvis w/ IV contrast 12/09/2022 LABORDER CBC w/ auto diff 12/12/[address] chest/abdomen /pelvis w/o contrast 12/09/2023 LABORDER CBC w/ auto diff 12/09/2023 LABORDER CMP 12/09/2023 LABORDER LDH panel Reason for Visit LAB 10 MIN Encounters Date Name 09/24/2021 CKD 09/24/2021 Diffuse non-Hodgkin' s lymphoma, large cell (disorder) Immunizations Date Name Route Dose Instructions Refusal Reason Stat us Covid-19 vaccine (Pfizer) Diagnostic Results Date Type Test Units Lower Limit Upper Limit Result Flag Comments Status Ordered By Specimen Source Lab Address 09/24 LDH panel LDH U/L 120.0 246.0 175 FINAL Randy Garduno [facility], [facility] [address] [phone] 0 Phone: () - 09/24 CMP Album in g/dL 3.2 5.2 4.4 FINAL Randy Garduno [place] [address] [address] [facility] [address] [phone] Phone: () - 09/24 CMP Alkal ine phosp hatas e U/L 46.0 116.0 105 FINAL [place] [address] [phone] 0 Phone: () - 09/24 CMP ALT/S GPT U/L 7.0 40.0 25 FINAL [place] [address] [phone] 0 Phone: () - 09/24 CMP AST/S GOT U/L 13.0 40.0 20 FINAL Randy Arriaga [place] [address] [phone] 0 Phone: () - 09/24 CMP BUN mg/dL 9.0 23.0 23 FINAL [place] [address] [phone] 0 Phone: () - 09/24 CMP Calci um mg/dL 8.7 10.4 10.2 FINAL Randy Arriaga [place] [address] [phone] 0 Phone: () - 09/24 CMP Chlor constance mmol/L 96.0 114.0 107 FINAL [place] [address] [address] [facility] [address] [phone] 0 Phone: () - 09/24 CMP CO2 mmol/L 20.0 31.0 25 The expected total allowable error for CO2 is 5.6%. We have seen up to 10% differenc e in values if reported at the end of the 96 hour stability window. Please consider the clinical significa nce of a 2.0-2.5 mmol/L lower reported CO2 value if reported at the end of the 96 hour stability window. FINAL Randy edward [facility], [address] [phone] 0 Phone: () - 09/24 CMP Creat inine mg/dL 0.5 1.2 1.41 High FINAL Randy edward [facility] [address] [phone] 0 Phone: () - 09/24 CMP GFR estim ate ml/min /1.73m ^2 53.4 Low GFR is calculate d using the CKD-EPI equation. FINAL Randy edward [place] [address] [phone] 0 Phone: () - 09/24 CMP Gluco se mg/dL 73.0 126.0 104 FINAL Randy edward [place] [address] [phone] 0 Phone: () - 09/24 CMP Potas sium mmol/L 3.5 5.1 4.8 FINAL Randy edward [place] [address] [phone] 0 Phone: () - 09/24 CMP Sodiu m mmol/L 136.0 145.0 139 FINAL Randy edward [place] [address] [phone] 0 Phone: () - 09/24 CMP Bilir ubin, total mg/dL 0.3 1.2 0.3 FINAL Randy edward [place] [address] [phone] 0 Phone: () - 09/24 CMP Total prote in g/dL 5.7 8.2 7.0 FINAL Randy edward [place] [address] [phone] 0 Phone: () - 09/24 CBC w/ auto diff WBC K/uL 3.0 8.9 6.0 FINAL Randy edward [place] [address] [phone] 0 Phone: () - 09/24 CBC w/ auto diff HGB g/dL 12.5 16.6 12.7 FINAL Randy edward [facility], [address] [facility] [address] [facility] [phone] 0 Phone: () - 09/24 CBC w/ auto diff PLT K/uL 113.0 364.0 229 FINAL Randy edward [facility], [address] [facility] [address] [phone] 0 Phone: () - 09/24 CBC w/ auto diff Laisha # (ANC) K/uL 1.6 6.6 4.1 FINAL Randy edward [facility], [address] [phone] 0 Phone: () - 09/24 CBC w/ auto diff Laisha % % 43.0 74.0 69.5 FINAL Randy edward [facility], [address] [phone] 0 Phone: () - 09/24 CBC w/ auto diff IG % % 0.0 0.5 0.5 FINAL Randy edward [facility], [address] [facility] [address] [phone] 0 Phone: () - 09/24 CBC w/ auto diff IG # K/uL 0.0 0.03 0.03 FINAL Randy edward [facility], [address] [facility] [address] [phone] 0 Phone: () - 09/24 CBC w/ auto diff LY % % 14.0 41.0 18.3 FINAL Randy edward [facility], [address] [facility] [address] [phone] 0 Phone: () - 09/24 CBC w/ auto diff MO % % 6.0 15.0 8.2 FINAL Randy edward [facility], [address] [facility] [address] [phone] 0 Phone: () - 09/24 CBC w/ auto diff EO % % 0.0 7.0 2.2 FINAL Randy edward [facility], [address] [facility] [address] [phone] 0 Phone: () - 09/24 CBC w/ auto diff BA % % 0.0 2.0 1.3 FINAL Randy edward [facility], [address] [phone] 0 Phone: () - 09/24 CBC w/ auto diff LY # K/uL 0.4 3.6 1.1 FINAL Randy edward [facility], [address] [facility] [address] [phone] 0 Phone: () - 09/24 CBC w/ auto diff MO # K/uL 0.2 1.3 0.5 FINAL Randy edward [facility] [address] [phone] 0 Phone: () - 09/24 CBC w/ auto diff EO # K/uL 0.0 0.6 0.1 FINAL Randy edward [facility] [address] [phone] 0 Phone: () - 09/24 CBC w/ auto diff BA # K/uL 0.0 0.2 0.1 FINAL Randy edward [facility] [address] [phone] 0 Phone: () - 09/24 CBC w/ auto diff NRBC % #/100W BC 0.0 0.2 0.0 FINAL Randy ewdard [facility] [address] [facility] [address] [phone] 0 Phone: () - 09/24 CBC w/ auto diff RBC M/uL 4.2 5.6 4.07 Low FINAL Randy edward [facility] [address] [facility] [address] [phone] 0 Phone: () - 09/24 CBC w/ auto diff HCT % 39.0 49.0 37.3 Low FINAL Randy edward [facility] [address] [facility] [address] [phone] 0 Phone: () - 09/24 CBC w/ auto diff MCV fL 80.0 104.0 91.6 FINAL Randy edward [facility], [address] [facility] [phone] 0 Phone: () - 09/24 CBC w/ auto diff MCH pg 26.0 35.0 31.2 FINAL Randy edward [facility], [address] [facility] [phone] 0 Phone: () - 09/24 CBC w/ auto diff MCHC g/dL 30.0 35.0 34.0 FINAL Randy edward [facility], [address] [facility] [phone] 0 Phone: () - 09/24 CBC w/ auto diff MPV fL 9.5 13.4 8.5 Low FINAL Randy edward [facility], [address] [facility] [phone] 0 Phone: () - 09/24 CBC w/ auto diff RDW % 11.3 15.6 12.90 FINAL Randy edward [facility], [address] [facility] [phone] 0 Phone: () - 01/12 [facility] lab See hook and eye attacher d 11/11 [facility] other lab See hook and eye attacher d 11/18 [facility] other lab See hook and eye attacher d 12/09 CBC w/ auto diff WBC K/uL 3.0 8.9 6.2 FINAL Augustus Garduno [facility] [place], [address] [facility] [phone] 0 Phone: () - 12/09 CBC w/ auto diff HGB g/dL 12.5 16.6 12.2 Low FINAL Augustus Riderot [facility] - [place], [address] [facility] [place] [phone] 0 Phone: () - 12/09 CBC w/ auto diff PLT K/uL 113.0 364.0 210 FINAL Augustus Riderot [facility] - [place], [address] [facility] [facility] [phone] 0 Phone: () - 12/09 CBC w/ auto diff Laisha # (ANC) K/uL 1.6 6.6 4.1 FINAL August[place]ade Garduno [facility] - [place], [address] [place] [phone] 0 Phone: () - 12/09 CBC w/ auto diff Laisha % % 43.0 74.0 66.5 FINAL August[place] Garduno [facility] - [place], [address] [place] [phone] 0 Phone: () - 12/09 CBC w/ auto diff IG % % 0.0 0.5 0.3 FINAL [place] Riderot [facility] - [place], [address] [place] [phone] 0 Phone: () - 12/09 CBC w/ auto diff IG # K/uL 0.0 0.03 0.02 FINAL August[place] Garduno [facility] - [place], [address] [place] [phone] 0 Phone: () - 12/09 CBC w/ auto diff LY % % 14.0 41.0 19.6 FINAL [place] Garduno [facility] - [place], [address] [place] [phone] 0 Phone: () - 12/09 CBC w/ auto diff MO % % 6.0 15.0 9.5 FINAL [place] Garduno [facility] - [place], [address] [place] [phone] 0 Phone: () - 12/09 CBC w/ auto diff EO % % 0.0 7.0 2.7 FINAL [place] Garduno [facility] - [place], [address] [place] [phone] 0 Phone: () - 12/09 CBC w/ auto diff BA % % 0.0 2.0 1.4 FINAL [place] Riderot [facility] - [place], [address] [place] [phone] 0 Phone: () - 12/09 CBC w/ auto diff LY # K/uL 0.4 3.6 1.2 FINAL Augustus Edu Riderot a [facility] - [place], [address] [place] [phone] 0 Phone: () - 12/09 CBC w/ auto diff MO # K/uL 0.2 1.3 0.6 FINAL Augustus Edu Rider[place] [facility] - [place], [address] [place] [phone] 0 Phone: () - 12/09 CBC w/ auto diff EO # K/uL 0.0 0.6 0.2 FINAL Augustus Edu Riderot a [facility] - [place], [address] [place] [phone] 0 Phone: () - 12/09 CBC w/ auto diff BA # K/uL 0.0 0.2 0.1 FINAL Augustus Edu Riderot a [facility] - [place], [address] [place] [phone] 0 Phone: () - 12/09 CBC w/ auto diff NRBC % #/100W BC 0.0 0.2 0.0 FINAL Augustus Edu Riderot [facility] - [place], [address] [place] [phone] 0 Phone: () - 12/09 CBC w/ auto diff RBC M/uL 4.2 5.6 3.86 Low FINAL Augustus Edu Riderot [facility] - [place], [address] [place] [phone] 0 Phone: () - 12/09 CBC w/ auto diff HCT % 39.0 49.0 36.3 Low FINAL Augustus Edu Riderot [facility] - [place], [address] [place] [phone] 0 Phone: () - 12/09 CBC w/ auto diff MCV fL 80.0 104.0 94.0 FINAL Augustus Edu Garduno [facility] - [place], [address] [facility] [address] [place] [phone] 0 Phone: () - 12/09 CBC w/ auto diff MCH pg 26.0 35.0 31.6 FINAL Augustus Edu edward [facility] - [place], [address] [facility] [address] [place] [phone] 0 Phone: () - 12/09 CBC w/ auto diff MCHC g/dL 30.0 35.0 33.6 FINAL Augustus Edu Riderot a [facility] - [place], [address] [facility] [address] [place] [phone] 0 Phone: () - 12/09 CBC w/ auto diff MPV fL 9.5 13.4 9.0 Low FINAL Augustus Edu edward [facility] - [place], [address] [facility] [address] [place] [phone] 0 Phone: () - 12/09 CBC w/ auto diff RDW % 11.3 15.6 12.90 FINAL Augustus Edu edward [facility] - [place], [address] [facility] [address] [place] [phone] 0 Phone: () - 12/09 CMP Album in g/dL 3.2 5.2 4.2 FINAL Augustus Edu Garduno a [facility], [address] [facility] [address] [place] [address] [phone] 0 Phone: () - 12/09 CMP Alkal ine phosp hatas e U/L 46.0 116.0 84 FINAL Augustus Edu Riderot a [facility], [address] [facility] [address] [place] [address] [phone] 0 Phone: () - 12/09 CMP ALT/S GPT U/L 7.0 40.0 28 FINAL Augustus Edu Riderot a [facility], [address] [facility] [address] [place] [address] [phone] 0 Phone: () - 12/09 CMP AST/S GOT U/L 13.0 40.0 25 FINAL [facility], [address] [facility] [address] [facility] [phone] 0 Phone: () - 12/09 CMP BUN mg/dL 9.0 23.0 21.0 FINAL [facility] [place] [facility], [address] [facility] [address] [facility] [phone] 0 Phone: () - 12/09 CMP Calci um mg/dL 8.7 10.4 9.3 FINAL [facility] [address] [facility] [address] [facility] [phone] 0 Phone: () - 12/09 CMP Chlor constance mmol/L 96.0 114.0 105 FINAL [place] [address] [phone] 0 Phone: () - 12/09 CMP CO2 mmol/L 20.0 31.0 24 The expected total allowable error for CO2 is 5.6%. We have seen up to 10% differenc e in values if reported at the end of the 96 hour stability window. Please consider the clinical significa nce of a 2.0-2.5 mmol/L lower reported CO2 value if reported at the end of the 96 hour stability window. FINAL [facility], [facility] [address] [phone] 0 Phone: () - 12/09 CMP Creat inine mg/dL 0.5 1.2 2.02 High FINAL [facility], [address] [phone] 0 Phone: () - 12/09 CMP GFR estim ate ml/min /1.73m ^2 34.4 Low GFR is calculate d using the CKD-EPI equation. FINAL [facility], [facility] N [facility] [address] [facility] [phone] 0 Phone: () - 12/09 CMP Gluco se mg/dL 73.0 126.0 97 FINAL [facility], [address] [phone] 0 Phone: () - 12/09 CMP Potas sium mmol/L 3.5 5.1 4.8 FINAL [facility] Edu [facility], [address] [phone] 0 Phone: () - 12/09 CMP Sodiu m mmol/L 136.0 145.0 139 FINAL [facility] [place] [address] [phone] 0 Phone: () - 12/09 CMP Bilir ubin, total mg/dL 0.3 1.2 0.2 Low FINAL [place] [address] [phone] 0 Phone: () - 12/09 CMP Total prote in g/dL 5.7 8.2 6.7 FINAL [place] [address] [phone] 0 Phone: () - 12/09 LDH panel LDH U/L 120.0 246.0 224 FINAL [facility] [place] [address] [phone] 0 Phone: () - Medications Date Name Route Dose Frequency Instructions Start Date End Date Status 04/19 Epinephrine IM intramuscula rly 0.3 mg PRN anaphylaxis or severe hypersensitivit y reaction Re-initiate treatment only upon physician approval. 2019 active 04/19 Methylpredn isolone IV intravenous 125.0 mg Use as Directed Re-initiate treatment only upon physician approval. 2019 active 04/19 Diphenhydra mine IV intravenous 50.0 mg Use as Directed Re-initiate treatment only upon physician approval. 2019 active 04/19 Hydrocortis one IV intravenous 100.0 mg Use as Directed Re-initiate treatment only upon physician approval. 2019 active 03/21 Diphenhydra mine IV intravenous 50.0 mg Use as Directed Re-initiate treatment only upon physician approval. 2018 active 03/21 Methylpredn isolone IV intravenous 125.0 mg Use as Directed Re-initiate treatment only upon physician approval. 2018 active 03/21 Hydrocortis one IV intravenous 100.0 mg Use as Directed Re-initiate treatment only upon physician approval. 2018 active 03/21 Epinephrine IM intramuscula rly 0.3 mg PRN anaphylaxis or severe hypersensitivit y reaction Re-initiate treatment only upon physician approval. 2018 active 02/28 Epinephrine IM intramuscula rly 0.3 mg PRN anaphylaxis or severe hypersensitivit y reaction Re-initiate treatment only upon physician approval. 2018 active 02/28 Hydrocortis one IV intravenous 100.0 mg Use as Directed Re-initiate treatment only upon physician approval. 2018 active 02/28 Methylpredn isolone IV intravenous 125.0 mg Use as Directed Re-initiate treatment only upon physician approval. 2018 active 02/28 Diphenhydra mine IV intravenous 50.0 mg Use as Directed Re-initiate treatment only upon physician approval. 2018 active 02/07 Spironolact one Oral PO 1.0 TABLET(S) daily 2018 active 02/07 Omeprazole Oral Delayed Release Capsule PO 1.0 CAPSULE(S), ENTERIC COATED daily 2018 active 02/07 methylpredn isolone 125 MG Injection intravenous 125.0 mg Use as Directed Re-initiate treatment only upon physician approval. 2018 active 02/07 diphenhydra mine hydrochlori de 50 MG/ML Injectable Solution intravenous 50.0 mg Use as Directed Re-initiate treatment only upon physician approval. 2018 active 02/07 1 ML epinephrine 1 MG/ML Injection intramuscula rly 0.3 mg Re-initiate treatment only upon physician approval. 2018 active 02/07 hydrocortis one 100 MG Injection intravenous 100.0 mg Use as Directed Re-initiate treatment only upon physician approval. 2018 active 02/07 Famotidine Oral PO 1.0 TABLET(S) QHS 2018 active 02/07 Hydrocortis one Topical Cream 1 % Topical 1.0 TOPICAL APPLICATION QID PRN 10/23/ 2019 active 02/07 Ferrous Sulfate Oral PO 1.0 TABLET(S) daily 2018 active 02/07 Tamsulosin Oral PO 1.0 CAPSULE daily as directed 2018 active 02/07 Furosemide Oral PO 1.0 TABLET(S) daily 2018 active 02/07 Acyclovir Oral PO 1.0 TABLET(S) BID 2018 active 02/07 Diphenhydra mine IV intravenous 50.0 mg Use as Directed Re-initiate treatment only upon physician approval. 2018 active 12/11 prochlorper azine 10 MG Oral Tablet orally 1.0 tablet(s) every 6 hours 2018 active 12/11 methylpredn isolone 125 MG Injection intravenous 125.0 mg Use as Directed Re-initiate treatment only upon physician approval. 2018 active 12/11 hydrocortis one 100 MG Injection intravenous 100.0 mg Use as Directed Re-initiate treatment only upon physician approval. 2018 active 12/11 diphenhydra mine hydrochlori de 50 MG/ML Injectable Solution intravenous 50.0 mg Use as Directed Re-initiate treatment only upon physician approval. 2018 active 12/11 1 ML epinephrine 1 MG/ML Injection intramuscula rly 0.3 mg Re-initiate treatment only upon physician approval. 2018 active 12/11 Venlafaxine Oral 24 hr Cap PO 1.0 CAPSULE(S) daily 1-75 mg tab and 1-37.5 mg tab 2018 active 12/11 Diphenhydra mine IV intravenous 50.0 mg Use as Directed Re-initiate treatment only upon physician approval. 2018 active Problems Diagnosis Status Date of Diagnosis Resolution Date Drug prophylaxis (procedure) Active Diffuse non-Hodgkin's lympho ma, large cell (disorder) Active 10/2018 Portal hypertension (disorder) Active CKD Active Vital Signs Date Type Value 09/24/2021 BSA 2.12 09/24/2021 BMI 33.30 09/24/2021 Height 68.00 09/24/2021 Weight 219.00 09/24/2021 Body Temperature 96.50 09/24/2021 Intravascular Systolic 126 09/24/2021 Intravascular Diastolic 61 09/24/2021 Oxygen Saturation 96.00 09/24/2021 Heart Beat 78.00 09/24/2021 Pain Scale 0.00 12/09/2022 BMI 31.93 12/09/2022 Height 68.00 12/09/2022 Weight 210.00 12/09/2022 Pain Scale 0.00 12/09/2022 Intravascular Systolic 112 12/09/2022 Intravascular Diastolic 60 12/09/2022 Oxygen Saturation 96.00 12/09/2022 Respiratory Rate 18.00 12/09/2022 Heart Beat 69.00 12/09/2022 BSA 2.09 12/09/2022 Body Temperature 97.30
--- OUTSIDE RECORDS SUMMARY | 2024-11-01 15:29 | XMS_ITS | CCD ---
Author Name Interface, [id number] lity Address [address] [place], [place] [id number] [facility] Oncology Address [address] [place] [address] Care Team Providers Care Rn Pediatric Icu Name Role Phone Augustus Alaniz Unavailable Unavailable Allergies and Adverse Reactions Care Plan Reason for Visit Functional Status Medications Problems Procedures Social History
--- OUTSIDE RECORDS SUMMARY | 2024-11-01 15:29 | XMS_ITS ---
Author Name Interface, [id number] lity Address [address] [place] [address] Oncology Address [address] [place] [address] Allergies and Adverse Reactions Plan Reason for Visit Encounters Immunizations Diagnostic Results Medications Problems Vital Signs
--- OUTSIDE RECORDS SUMMARY | 2024-11-01 15:29 | XMS_ITS ---
Author Name Interface, [id number] lity Address [address] [place] [address] [address] [address] [facility] Address [address] [facility] [address] [address] Allergies and Adverse Reactions Medication/Group Name Reaction Severity Date No known allergies Plan Date Type Value 12/09/2022 APPOINTMENT RECONSULT 20 MIN 12/09/2022 APPOINTMENT LAB 10 MIN 12/09/2022 LABORDER LDH panel 12/09/2022 LABORDER CMP 12/09/[address] chest/abdomen /pelvis w/ IV contrast 12/09/2022 LABORDER CBC w/ auto diff 12/12/[address] chest/abdomen /pelvis w/o contrast 12/09/2023 LABORDER CBC w/ auto diff 12/09/2023 LABORDER CMP 12/09/2023 LABORDER LDH panel Reason for Visit LAB 10 MIN Encounters Date Name 12/09/2022 CKD 12/09/2022 Diffuse non-Hodgkin' s lymphoma, large cell (disorder) Immunizations Date Name Route Dose Instructions Refusal Reason Stat us Covid-19 vaccine (Pfizer) Diagnostic Results Date Type Test Units Lower Limit Upper Limit Result Flag Comments Status Ordered By Specimen Source Lab Address 12/09 LDH panel LDH U/L 120.0 246.0 224 FINAL [facility] [place], [address] [facility] [phone] Phone: () - 12/09 CBC w/ auto diff WBC K/uL 3.0 8.9 6.2 FINAL [facility] [place], [address] [facility] [phone] 0 Phone: () - 12/09 CBC w/ auto diff HGB g/dL 12.5 16.6 12.2 Low FINAL [facility] [place], [address] [place] [phone] 0 Phone: () - 12/09 CBC w/ auto diff PLT K/uL 113.0 364.0 210 FINAL [facility] [place], [address] [place] [phone] 0 Phone: () - 12/09 CBC w/ auto diff Laisha # (ANC) K/uL 1.6 6.6 4.1 FINAL [facility] [place], [address] [place] [phone] 0 Phone: () - 12/09 CBC w/ auto diff Laisha % % 43.0 74.0 66.5 FINAL [facility] [place], [address] [place] [phone] 0 Phone: () - 12/09 CBC w/ auto diff IG % % 0.0 0.5 0.3 FINAL [facility] [place], [address] [place] [phone] 0 Phone: () - 12/09 CBC w/ auto diff IG # K/uL 0.0 0.03 0.02 FINAL [facility] [place], [address] [place] [phone] 0 Phone: () - 12/09 CBC w/ auto diff LY % % 14.0 41.0 19.6 FINAL [facility] [place], [address] [place] [phone] 0 Phone: () - 12/09 CBC w/ auto diff MO % % 6.0 15.0 9.5 FINAL [facility] [place], [address] [place] [phone] 0 Phone: () - 12/09 CBC w/ auto diff EO % % 0.0 7.0 2.7 FINAL [facility] [place], [address] [place] [phone] 0 Phone: () - 12/09 CBC w/ auto diff BA % % 0.0 2.0 1.4 FINAL [facility] [place], [address] [place] [phone] 0 Phone: () - 12/09 CBC w/ auto diff LY # K/uL 0.4 3.6 1.2 FINAL [facility] [place], [address] [place] [phone] 0 Phone: () - 12/09 CBC w/ auto diff MO # K/uL 0.2 1.3 0.6 FINAL [facility] [place], [address] [place] [phone] 0 Phone: () - 12/09 CBC w/ auto diff EO # K/uL 0.0 0.6 0.2 FINAL [facility] [place], [address] [place] [phone] 0 Phone: () - 12/09 CBC w/ auto diff BA # K/uL 0.0 0.2 0.1 FINAL [facility] [place], [address] [place] [phone] 0 Phone: () - 12/09 CBC w/ auto diff NRBC % #/100W BC 0.0 0.2 0.0 FINAL [facility] [place], [address] [place] [phone] 0 Phone: () - 12/09 CBC w/ auto diff RBC M/uL 4.2 5.6 3.86 Low FINAL [facility] [place], [address] [place] [phone] 0 Phone: () - 12/09 CBC w/ auto diff HCT % 39.0 49.0 36.3 Low FINAL [facility] [place], [address] [place] [phone] 0 Phone: () - 12/09 CBC w/ auto diff MCV fL 80.0 104.0 94.0 FINAL [facility] [place], [address] [place] [phone] 0 Phone: () - 12/09 CBC w/ auto diff MCH pg 26.0 35.0 31.6 FINAL [facility] [place], [address] [place] [phone] 0 Phone: () - 12/09 CBC w/ auto diff MCHC g/dL 30.0 35.0 33.6 FINAL [facility] [place], [address] [place] [phone] 0 Phone: () - 12/09 CBC w/ auto diff MPV fL 9.5 13.4 9.0 Low FINAL [facility] [place], [address] [place] [phone] 0 Phone: () - 12/09 CBC w/ auto diff RDW % 11.3 15.6 12.90 FINAL [facility] [place], [address] [place] [phone] 0 Phone: () - 12/09 CMP Album in g/dL 3.2 5.2 4.2 FINAL [facility] [place], [address] [place] [phone] 0 Phone: () - 12/09 CMP Alkal ine phosp hatas e U/L 46.0 116.0 84 FINAL [place] [address] [address] [facility] [address] [phone] 0 Phone: () - 12/09 CMP ALT/S GPT U/L 7.0 40.0 28 FINAL [facility] [address] [facility] [address] [phone] 0 Phone: () - 12/09 CMP AST/S GOT U/L 13.0 40.0 25 FINAL [place] [address] [address] [facility] [address] [phone] 0 Phone: () - 12/09 CMP BUN mg/dL 9.0 23.0 21.0 FINAL [place] [address] [address] [facility] [address] [phone] 0 Phone: () - 12/09 CMP Calci um mg/dL 8.7 10.4 9.3 FINAL [place] [address] [address] [facility] [address] [phone] 0 Phone: () - 12/09 CMP Chlor constance mmol/L 96.0 114.0 105 FINAL [place] [address] [phone] 0 Phone: () - 12/09 CMP CO2 [...] of the 96 hour stability window. FINAL [facility] [address] [phone] 0 Phone: () - 12/09 CMP Creat inine mg/dL 0.5 1.2 2.02 High FINAL [facility], [address] [phone] 0 Phone: () - 12/09 CMP GFR estim ate ml/min /1.73m ^2 34.4 Low GFR is calculate d using the CKD-EPI equation. FINAL [facility] [address] [phone] Phone: () - 12/09 CMP Gluco se mg/dL 73.0 126.0 97 FINAL [place] [address] [phone] 0 Phone: () - 12/09 CMP Potas sium mmol/L 3.5 5.1 4.8 FINAL [place] [address] [phone] 0 Phone: () - 12/09 CMP Sodiu m mmol/L 136.0 145.0 139 FINAL [place] [address] [phone] 0 Phone: () - 12/09 CMP Bilir ubin, total mg/dL 0.3 1.2 0.2 Low FINAL [place] [address] [phone] 0 Phone: () - 12/09 CMP Total prote in g/dL 5.7 8.2 6.7 FINAL [place] [address] [phone] 0 Phone: () - Medications Date Name [...] % Topical 1.0 TOPICAL APPLICATION QID PRN 2018 active 02/07 Ferrous Sulfate Oral PO 1.0 [...] CKD Active Vital Signs Date Type Value 12/09/2022 Body Temperature 97.30 12/09/2022 Heart Beat 69.00 12/09/2022 Respiratory Rate 18.00 12/09/2022 Oxygen Saturation 96.00 12/09/2022 BSA 2.09 12/09/2022 Pain Scale 0.00 12/09/2022 Weight 210.00 12/09/2022 Height 68.00 12/09/2022 BMI 31.93 12/09/2022 Intravascular Systolic 112 12/09/2022 Intravascular Diastolic 60 Notes Section * Med Onc Follow-up Note (Amended) Patient Name: CHARO MONTERO? Date Of : 1950? Today's Provider:?Augustus PERES Date of Service:?12/09/2022? Attending Physician:?Augustus Sorensen (Medical Oncology) Referring Provider:? 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 * CT done 11/01/2019 shows no relapse. * Patient returns for a planned follow-up he continues to do very well denies any fever night sweats weight loss he denies any palpable lymphadenopathy or residual side effects from chemotherapy.?? * Chronic kidney disease:??Gradual worsening of creatinine over the last 2 to 3 years creatinine today was 2.0.?? Plan* On clinical examination there were no concerning findings suggestive of recurrent diffuse large B-cell lymphoma. * Lab test showed normal LDH gradually worsening creatinine normal electrolytes normal liver functiontest and normal CBC. * Patient will have a CT scan of chest abdomen pelvis without contrast. * Due to worsening creatinine we will also refer to nephrology for a consult. * Later??CT scan results when available which did not show any evidence of recurrent lymphoma patientwill continue annual follow-up.?? * ?? Advanced Care Planning Pain Scale on Today's Visit Not recorded on today's visit Pain Plan on Today's Visit No pain plan indicated for today's visit Smoking Status Smoking Tobacco : Light Tobacco Smoker; Smokeless Tobacco : none found; Vaping : none found Depression Screening Tool Status Was screened; Outcome positive: No; Screening Date: 12/09/2022; Screening Tool: PRIME ACOSTA-PHQ2; Total depression score: 1 History of Present Illness * Presented to the hospital and was found to have a splenic mass with pancreatic invasion, bulky abdominal adenopathy and omental/peritoneal nodules pancreatitis. Pathology showed diffuse large B-cell lymphoma, NOS. FISH study showed ALVARO negative, BCL- 2 negative, and BCL 6+ for rearrangement. Insuffi cient tissue for cytogenetics. PET scan showed widespread FDG avid malignancy involving multiple lymph nodes above and below the diaphragm, right iliac bone as well as large heterogenous infiltrativemass centered in the spleen and pancreatic tail region. * Underwent cycle 1 of R-CHOP, 11/17/2018 in the hospital * PET/CT done on 12/26/2018 following cycle 2 showed complete response. * He was hospitalized between 01/01 and 01/12 at [facility] for abdominal distention and worsening lower extremity edema.?? CT scan of the pelvis showed improved lymphoma but increased ascites. Echocardiogram showed a left ventricle ejection fraction of 65 to 70% without wall motion abnormalities.?? There was no evidence of diastolic dysfunction.?? Liver ultrasound showed heterogeneous hepatic echotexture.?? He underwent a therapeutic paracentesis.?? 7 L of bloody fluid were drained.??Transjugular liver biopsy showed portal hypertension (based on measured pressures) secondary to nodular regenerative hyperplasia.? * He received his 6th and last cycle of R-CHOP on 04/19/19. CT scan of the chest, abdomen and pelvis done on 05/03/19 showed no evidence of lymphoma, decreased left pleural effusion, decreased splenomegaly and stable right pelvic 2.2 cm nodule. * 01/18/2023 CT scan of chest abdomen pelvis did not show any evidence of??Recurrent lymphoma Interval History { } Review of Systems Remaining 14 point comprehensive review of systems within normal limits. NCCN Distress Thermometer and Problem List were collected and documented in the patient chart.?? Remarkable symptoms and concerns were discussed with the patient.?? Any additional follow-up is indicated in the plan. Past Medical and Surgical History Reviewed Current Medications Medication List Name Date Omeprazole Oral Delayed Release Capsule 02/07/2019 Furosemide Oral 02/07/2019 Famotidine Oral 02/07/2019 Hydrocortisone Topical Cream 1 % 019 Tamsulosin Oral 02/07/2019 Prochlorperazine Oral 12/11/2018 Ferrous Sulfate Oral 02/07/2019 Venlafaxine Oral 24 hr Cap 12/09/2022 Spironolactone Oral 02/07/2019 Acyclovir Oral 02/07/2019 Allergies No known medication allergies Family History Reviewed Social History Reviewed Vital Signs Blood pressure: Not recorded on visit, Pulse: Not recorded on visit, Temperature: Not recorded on visit, Respirations: Not recorded on visit, O2 sat: Not recorded on visit, Pain Scale: Not recorded on visit, Height: Not recorded on visit, Weight: Not recorded on visit, BSA: Not recorded on visit, BMI: Not recorded on visit Covid-19 vaccine (Pfizer) (10/06/2020), Elsewhere; Covid-19 vaccine (Pfizer) (10/06/2020), Elsewhere; Covid-19 vaccine (Pfizer) (12/09/2022); Flu vaccine - Adult (06/05/2020), Elsewhere; Flu vaccine - Adult (2021); Flu vaccine - Adult (02/26/2019), Elsewhere Performance Status ECOG or Karnofsky ECO Symptoms, but ambulatory. Restricted in physically strenuous activity, but ambulatory and able to carry out work of a light or sedentary nature (e.g., light housework, office work). (Date: 06/05/2020) Karnofsky:?Not recorded Physical Exam Pleasant 72-year-old gentleman appears comfortable no acute distress ECOG performance score 1 Lymphatic no palpable lymphadenopathy in the head and neck bilateral axilla inguinal region Lungs clear to auscultation Abdomen soft nontender Genetics/Molecular/Biomarkers * Diffuse non-Hodgkin's lymphoma, large cell (disorder) ( Stage Date: 11/20/2018, Stage RODNEY Date of Dx:10/2018 Disease Status: Initial presentation; CD20 Result: Positive; CD30 Result: Unknown; First record:11/20/2018 Last record:02/07/2019 Other Migrated ICD10: C83.39 ) * Drug prophylaxis (procedure) ( First record:12/11/2018 Last record:02/07/2019; ) Lab Results CBC LabResults 12/09/2022 11/18/2022 11/11/2022 01/12/2022 04/06/2021 CBC WBC x 10^3/uL 6.2 6.0 6.2 RBC x 10^6/uL 3.86 (L) 4.07 (L) 3.96 (L) NRBC % /100 wbc 0.0 0.0 0.0 HGB g/dL 12.2 (L) 12.7 12.5 HCT % 36.3 (L) 37.3 (L) 37.3 (L) MCV fL 94.0 91.6 94.2 MCH pg 31.6 31.2 31.6 MCHC g/dL 33.6 34.0 33.5 RDW % 12.90 12.90 13.20 PLT x 10^3/uL 210 229 238 MPV fL 9.0 (L) 8.5 (L) 8.5 (L) Laisha % 66.5 69.5 73.4 LY % 19.6 18.3 14.6 MO % 9.5 8.2 8.3 EO % 2.7 2.2 2.3 BA % 1.4 1.3 1.1 IG % 0.3 0.5 0.3 Laisha # (ANC) x 10^3/uL 4.1 4.1 4.5 LY # x 10^3/uL 1.2 1.1 0.9 MO # x 10^3/uL 0.6 0.5 0.5 EO # x 10^3/uL 0.2 0.1 0.1 BA # x 10^3/uL 0.1 0.1 0.1 IG # x 10^3/uL 0.02 0.03 0.02 Chemistries LabResults 12/09/2022 11/18/2022 11/11/2022 01/12/2022 04/06/2021 Chemistries Glucose mg/dL 97 104 101 BUN mg/dL 21.0 23 30 (H) Creatinine mg/dL 2.02 (H) 1.41 (H) 1.21 (H) Sodium mmol/L 139 139 139 Potassium mmol/L 4.8 4.8 4.8 Chloride mmol/L 105 107 107 CO2 mmol/L 24 25 24 Calcium mg/dL 9.3 10.2 10.8 (H) Albumin g/dL 4.2 4.4 4.5 Total protein g/dL 6.7 7.0 7.2 Bilirubin, total mg/dL 0.2 (L) 0.3 0.3 Alkaline phosphatase U/L 84 105 118 (H) AST/SGOT U/L 25 20 20 ALT/SGPT U/L 28 25 21 LDH U/L 224 175 189 GFR estimate mL/min/1.73m2 34.4 (L) 53.4 (L) 60.2 ? Surveys/Consents/Other Discussions JA Mcdowell CC: FAX Marin Ramirez MD Electronically signed by Augustus PERES 01/04/2024 20:56 CDT
--- NOTE | 2024-11-01 15:33 | CRLHL7_ITS ---
For Patients: As a result of the Cures Act, medical imaging exams and procedure reports are released immediately into your electronic medical record. You may view this report before your referring provider. If you have questions, please contact your health care provider. Indication: Fall Technique: Two views of the right knee Comparison: Right knee radiographs on February 20, 2020 Findings/Impression: Nondisplaced, transverse fracture of the patella as seen on lateral view. Questionable trace lipohemarthrosis. No additional fractures or malalignment. Postsurgical changes of right total knee arthroplasty and patellar resurfacing without evidence of hardware related complication. Vascular calcifications. Dictated by Wilfred Maldonado MD @ 11/01/2024 4:11:43 PM (Electronically Signed)
[2024-11-01 15:34] VITALS: BP 118/79; PULSE 61; RESP 16; TEMP 36.3; O2SAT 94; BMI 35.0
--- NOTE | 2024-11-01 17:55 | CRLHL7_ITS ---
For Patients: As a result of the Century Cures Act, medical imaging exams and procedure reports are released immediately into your electronic medical record. You may view this report before your referring provider. If you have questions, please contact your health care provider. Indication: Knee pain Technique: Noncontrast CT of the right knee. Comparison: Right knee radiographs 11/01/2024 and 02/20/2020 Findings: Right total knee arthroplasty appears intact. No acute fracture. Intact patella. Normal alignment. No joint effusion. Unchanged partially calcified lesion within distal femur medullary cavity, likely an enchondroma. Atherosclerotic disease. Impression: No acute bony abnormality. Intact right total knee arthroplasty. Please note that all CT scans at this facility use dose modulation, iterative reconstruction, and/or weight-based dosing when appropriate to reduce radiation dose to as low as reasonably achievable. Dictated by Pablito Resendiz MD @ 11/01/2024 7:11:37 PM (Electronically Signed)
--- NOTE | 2024-11-01 18:26 | ED.LOWEXIN ---
HPI - Extremity Injury (Lower) General Date Seen: 11/01/24 Chief Complaint: Extremity Pain/Injury, Lower Stated Complaint: fell, injured knee Time Seen by Provider: 11/01/24 17:34 Source: patient Mode of arrival: EMS Limitations: no limitations History of Present Illness HPI Narrative: Patient is a 74-year-old male presenting for right knee pain. Patient states he has been having some pain to his right knee now for a few weeks and was scheduled to see his surgeon here in [place] next Tuesday. Previously had surgery on his right knee for knee replacement in 2017. Was walking up the steps when he heard a pop and some the had quite a bit of pain to his right knee. He has been unable to walk since then so he had to call EMS to bring him to the hospital. He was able to help himself to the ground. Denies any falls. Unable to bear any weight on that right leg at this time. Denies numbness. States pain is all around the knee. Hard to pinpoint the exact spot. Has not had any fevers or chills. No other concerns noted Related Data Home Medications ?Medication ?Instructions ?Recorded ?Confirmed acetaminophen 325 mg tablet 325 mg PO Q6H PRN 11/18/22 11/01/24 (Tylenol) acyclovir 400 mg tablet 400 mg PO BID 11/18/22 11/01/24 famotidine 20 mg tablet 20 mg PO DAILY 11/18/22 11/01/24 ferrous sulfate 325 mg (65 mg 325 mg PO DAILY 11/18/22 11/01/24 iron) tablet omeprazole 20 mg capsule,delayed 20 mg PO DAILY 11/18/22 11/01/24 release primidone 50 mg tablet 50 mg PO QHS 11/18/22 11/01/24 spironolactone 25 mg tablet 25 mg PO BID 11/18/22 11/01/24 sulfamethoxazole-trimethoprim 11/18/22 tamsulosin 0.4 mg capsule (Flomax) 0.4 mg PO DAILY 11/18/22 11/01/24 venlafaxine 150 mg tablet,extended 150 mg PO DAILY 11/18/22 11/01/24 release 24 hr nicotine (polacrilex) 4 mg buccal mg PO 11/01/24 lozenge Allergies Allergy/AdvReac Type Severity Reaction Status Date / Time No Known Drug Allergies Allergy Verified 12/22/22 15:02 Review of Systems Narrative: Pertinent systems reviewed and were negative unless stated in HPI PFSH PFS Surgical History (Updated 10/29/24 @ 11:44 by Shanice Medina) History of total right knee replacement (12/28/16) ?Z96.651 - Presence of right artificial knee joint (ICD-10) Social History Smoking Status: Current every day smoker What tobacco products do you use: cigarettes Smoking packs per day: 0.5 Smoking cigarettes per day: 10.0 How often do you have a drink containing alcohol: never AUDIT-C Alcohol total score: 0 Non-prescribed substance use: denies use service: Yes Exam Narrative: Exam Narrative: Const: Well-nourished, Well-developed, in mild distress Eyes: PERRL, no conjunctival injection, and symmetrical lids HENT: Atraumatic external nose and ears. Moist mucous membranes. MSK:Extremities w/o deformity, decreased range of motion right knee secondary to pain. Tenderness noted throughout the joint line. Mild tenderness when pushing on the patella. Skin: Warm, Dry. No rashes or lesions. Neuro: Normal Muscle tone, No focal neurological deficits. Psych: Awake, Alert, & Oriented x3. Appropriate mood and affect. Const: Vital Signs, click to edit/add: Vital Signs - 24 hr 11/01/24 15:34 11/01/24 19:11 Temperature 97.3 F L Pulse Rate [Pulse Oximeter] 61 55 L Respiratory Rate 16 16 Blood Pressure [Ri ght Upper Arm] 118/79 110/51 L Pulse Oximetry 94 95 Oxygen Delivery Me thod Room Air Course Vital Signs Vital signs: Initial Vital Signs Temperature 97.3 F L 11/01/24 15:34 Temperature Source Temporal Artery Scan 11/01/24 15:34 Pulse Rate 61 11/01/24 15:34 Respiratory Rate 16 11/01/24 15:34 Blood Pressure 118/79 11/01/24 15:34 Blood Pressure Mean 92 11/01/24 15:34 Blood Pressure Position Sitting 11/01/24 15:34 Pulse Oximetry 94 11/01/24 15:34 Oxygen Delivery Method Room Air 11/01/24 15:34 Vital Signs Temperature 97.3 F L 11/01/24 15:34 Pulse Rate 61 11/01/24 15:34 Respiratory Rate 16 11/01/24 15:34 Blood Pressure 118/79 11/01/24 15:34 Pulse Oximetry 94 11/01/24 15:34 Oxygen Delivery Method Room Air 11/01/24 15:34 Temperature 97.3 F L 11/01/24 15:34 Pulse Rate 55 L 11/01/24 19:11 Respiratory Rate 16 11/01/24 19:11 Blood Pressure 110/51 L 11/01/24 19:11 Pulse Oximetry 95 11/01/24 19:11 Oxygen Delivery Method Room Air 11/01/24 15:34 Medications Administered Medications: Discontinued Medications Generic Name Dose Route Start Last Admin Trade Name Bipin PRN Reason Stop Dose Admin Acetaminophen 1,000 mg 11/01/24 19:12 11/01/24 19:38 Acetaminophen 500 Mg Tablet PO 11/01/24 19:13 1,000 mg ONCE ONE Administration MDM - Extremity Injury (Lower) MDM Narrative Medical decision making narrative: Patient is a 74-year-old presenting for right knee pain. X-ray ordered in triage. X-ray returned showing transverse patellar fracture. On my exam this seems odd as there was no trauma associated with it and he has minimal pain over the patella. I do not believe he actually has a fracture. I will do a CT scan for better evaluation of this. Difficult to say what the pain is from right now. CT scan returned showing no acute fractures. He is doing well at this time and did ambulate with a knee immobilizer. I offered him admission as observation due to his ambulation issues but he wants to try going home with a knee immobilizer. Also give him a script for a walker. He was able to ambulate with crutches. He was getting ready to discharge but then changed his mind and does not feel comfortable going home. States he will have difficulty using the steps at his house and needs to go multiple steps to get into his house. Does not have anyone at home to help of in his house. I explained to him that we can keep him in observation and what that all entails. He states he understands and is agreeable for observation admission for his right knee pain. Imaging Data Right knee x-ray: Attestation: I have reviewed the pertinent imaging results. Radiologist's impression: Nondisplaced, transverse fracture of the patella as seen on lateral view. Questionable trace lipohemarthrosis. No additional fractures or malalignment. Postsurgical changes of right total knee arthroplasty and patellar resurfacing without evidence of hardware related complication. Vascular calcifications. Dictated by Wilfred Maldonado MD @ 11/01/2024 4:11:[address]: Attestation: I have reviewed the pertinent imaging results. Radiologist's impression: No acute bony abnormality. Intact right total knee arthroplasty. Please note that all CT scans at this facility use dose modulation, iterative reconstruction, and/or weight-based dosing when appropriate to reduce radiation dose to as low as reasonably achievable. Dictated by Pablito Resendiz MD @ 11/01/2024 7:11:37 PM Discharge Plan Discharge Clinical Impression: Acute knee pain Qualifiers: Laterality: right Qualified Code(s): M25.561 - Pain in right knee Patient Disposition: Admitted As Observation Condition: Stable
--- OUTSIDE RECORDS SUMMARY | 2024-11-01 19:07 | XMS_ITS ---
Author Name Interface, [id number] lity Address [address] [place] [address] Oncology Address [address] [place] [address] Allergies and Adverse Reactions Plan Reason for Visit Encounters Immunizations Diagnostic Results Medications Problems Vital Signs
--- OUTSIDE RECORDS SUMMARY | 2024-11-01 19:08 | XMS_ITS ---
Author Name Interface, H2Irnjwvd lity Address [address] [place] [address] [address] [place] [address] [facility] Address [address] [facility] [address] [place] [address] Allergies and Adverse Reactions Medication/Group Name Reaction Severity Date No known allergies Plan Date Type Value 12/09/2022 APPOINTMENT RECONSULT 20 MIN 12/09/2022 APPOINTMENT LAB 10 MIN 11/30/2022 APPOINTMENT RECONSULT 20 MIN 11/30/2022 APPOINTMENT LAB 10 MIN 03/26/2022 APPOINTMENT LAB 15 MIN 03/26/2022 APPOINTMENT OV 20 MIN 09/24/2021 APPOINTMENT LAB 15 MIN 09/24/2021 APPOINTMENT OV 20 MIN 04/06/2021 APPOINTMENT OV 20 MIN 04/06/2021 APPOINTMENT LAB 5 MIN 10/03/2020 APPOINTMENT RC - 35 ARM RC - 35 ARM RC 10/03/2020 APPOINTMENT RC - 35 ARM RC - 35 ARM RC 06/05/2020 APPOINTMENT RC - 35 ARM RC - 35 ARM RC 06/05/2020 APPOINTMENT RC - 35 ARM RC - 35 ARM RC 03/04/2020 APPOINTMENT RC - 35 ARM/RC - R/S FROM 02/2703/04/2020 APPOINTMENT RC - 35 ARM/RC - R/S FROM 02/2702/28/2020 APPOINTMENT RC - 35 ARM RC - 35 ARM RC 02/28/2020 APPOINTMENT RC - 35 ARM RC - 35 ARM RC 11/22/2019 APPOINTMENT EPCON - 35 NON H ODGKIN LYMPHOMA - SAW JERICHO 11/20/2019 APPOINTMENT TMNP - 35 EPCON NON HODGKINS LYMP - 35 EPCON NON HODGKINS LYMP 11/15/2019 APPOINTMENT RC - 71 RC - 12 WEEKS 10/31/[address] - 71 ARM/CAP IV CHKIN@ - NON HODGKINS LYMPHOMA LARGE CE 10/31/[address] - 71 ARM/CAP IV CHKIN@ - NON HODGKINS LYMPHOMA LARGE CE 08/08/2019 APPOINTMENT PHONE - 38 3 MOS RC-PHONE CONF - [phone] 08/08/2019 APPOINTMENT RC - 38 ARM 3 MO S RC - 38 ARM 3 MOS RC 08/08/2019 LABORDER LDH panel 08/08/2019 LABORDER CBC w/ auto diff 08/08/2019 LABORDER CMP 10/31/[address] chest/abdomen /pelvis w/ IV contrast 10/31/2019 LABORDER CMP 10/31/2019 LABORDER CBC w/ auto diff 10/31/2019 LABORDER LDH panel 03/04/2020 LABORDER CMP 03/04/2020 LABORDER LDH panel 03/04/2020 LABORDER CBC w/ auto diff 06/05/2020 LABORDER CMP 06/05/2020 LABORDER CBC w/ auto diff 06/05/2020 LABORDER LDH panel 10/03/2020 LABORDER CBC w/ auto diff 10/03/2020 LABORDER CMP 10/03/2020 LABORDER LDH panel 04/06/2021 LABORDER LDH panel 04/06/2021 LABORDER CBC w/ auto diff 04/06/2021 LABORDER CMP 09/24/2021 LABORDER LDH panel 09/24/2021 LABORDER CMP [...] Visit LAB 10 MIN Encounters Date Name 08/08/2019 CKD 08/08/2019 Diffuse non-Hodgkin' s lymphoma, large cell (disorder) Immunizations Date Name Route Dose Instructions Refusal Reason Stat us Flu vaccine - Adult Comp leted Covid-19 vaccine (Pfizer) Completed Covid-19 vaccine (Pfizer) Completed Flu vaccine - Adult Covid-19 vaccine (Pfizer) Diagnostic Results Date Type Test Units Lower Limit Upper Limit Result Flag Comments Status Ordered By Specimen Source Lab Address 10/30 CMP Album in g/dL 3.2 5.2 4.7 FINAL Randy Rider[address] [phone] Phone: () - 10/30 CMP Alkal ine phosp hatas e U/L 46.0 116.0 119 High FINAL Randy Arriaga [address] [phone] 0 Phone: () - 10/30 CMP ALT/S GPT U/L 7.0 40.0 21 FINAL Randy Bart [address] [phone] 0 Phone: () - 10/30 CMP AST/S GOT U/L 13.0 40.0 19 FINAL Randy Arriaga [address] [phone] Phone: () - 10/30 CMP BUN mg/dL 9.0 23.0 40 High FINAL Randy Arriaga [address] [id number] 0 Phone: () - 10/30 CMP Calci um mg/dL 8.7 10.4 10.7 High FINAL [place] Sean[address] [phone] 0 Phone: () - 10/30 CMP Chlor constance mmol/L 96.0 114.0 106 FINAL Randy Bart [address] [phone] 0 Phone: () - 10/30 CMP CO2 mmol/L 20.0 31.0 30 FINAL Randy Sean[address] [id number] 0 Phone: () - 10/30 CMP Creat inine mg/dL 0.5 1.2 1.41 High FINAL Randy Sean[address] [phone] 0 Phone: () - 10/30 CMP GFR estim ate ml/min /1.73m ^2 50.6 Low GFR is calculate d using the CKD-EPI equation. FINAL Randy edward [address] [phone] 0 Phone: () - 10/30 CMP Gluco se mg/dL 73.0 126.0 101 FINAL Randy Garduno [address] [id number] 0 Phone: () - 10/30 CMP Potas sium mmol/L 3.5 5.1 4.7 FINAL Randy Rider[address] [phone] 0 Phone: () - 10/30 CMP Sodiu m mmol/L 136.0 145.0 141 FINAL Randy Rider[address] [id number] 0 Phone: () - 10/30 CMP Bilir ubin, total mg/dL 0.3 1.2 0.3 FINAL Randy Garduno [address] [phone] 0 Phone: () - 10/30 CMP Total prote in g/dL 5.7 8.2 7.0 FINAL Randy Garduno [address] [id number] 0 Phone: () - 10/30 LDH panel LDH U/L 120.0 246.0 180 [facility] Randy Rider[address] [phone] 0 Phone: () - 10/30 CBC w/ auto diff WBC K/uL 3.0 8.9 5.8 FINAL Randy Rider[address] [id number] 0 Phone: () - 10/30 CBC w/ auto diff HGB g/dL 12.5 16.6 12.7 FINAL Randy Garduno [address] [id number] 0 Phone: () - 10/30 CBC w/ auto diff PLT K/uL 113.0 364.0 192 FINAL Randy edward [address] [id number] 0 Phone: () - 10/30 CBC w/ auto diff Laisha # (ANC) K/uL 1.6 6.6 3.8 FINAL Randy edward [address] [phone] 0 Phone: () - 10/30 CBC w/ auto diff Laisha % % 43.0 74.0 64.8 FINAL Randy edward [address] [id number] 0 Phone: () - 10/30 CBC w/ auto diff IG % % 0.0 0.5 0.5 FINAL Randy edward [address] [phone] 0 Phone: () - 10/30 CBC w/ auto diff IG # K/uL 0.0 0.03 0.03 FINAL Randy edward [address] [phone] 0 Phone: () - 10/30 CBC w/ auto diff LY % % 14.0 41.0 21.4 FINAL Randy edward [address] [id number] 0 Phone: () - 10/30 CBC w/ auto diff MO % % 6.0 15.0 8.7 FINAL Randy edward [address] [id number] 0 Phone: () - 10/30 CBC w/ auto diff EO % % 0.0 7.0 3.6 FINAL Randy edward [address] [id number] 0 Phone: () - 10/30 CBC w/ auto diff BA % % 0.0 2.0 1.0 FINAL Randy edward [address] [phone] 0 Phone: () - 10/30 CBC w/ auto diff LY # K/uL 0.4 3.6 1.3 FINAL Randy Ducker [place] [address] [id number] 0 Phone: () - 10/30 CBC w/ auto diff MO # K/uL 0.2 1.3 0.5 FINAL Randy edward [address] [id number] 0 Phone: () - 10/30 CBC w/ auto diff EO # K/uL 0.0 0.6 0.2 FINAL Randy edward [address] [id number] 0 Phone: () - 10/30 CBC w/ auto diff BA # K/uL 0.0 0.2 0.1 FINAL Randy Garduno [address] [phone] 0 Phone: () - 10/30 CBC w/ auto diff NRBC % #/100W BC 0.0 0.2 0.0 FINAL Randy Garduno [address] [id number] 0 Phone: () - 10/30 CBC w/ auto diff RBC M/uL 4.2 5.6 4.10 Low FINAL Randy Rider[address] [id number] 0 Phone: () - 10/30 CBC w/ auto diff HCT % 39.0 49.0 38.0 Low FINAL Randy Garduno [address] [id number] 0 Phone: () - 10/30 CBC w/ auto diff MCV fL 80.0 104.0 92.7 FINAL Randy Garduno [address] [id number] 0 Phone: () - 10/30 CBC w/ auto diff MCH pg 26.0 35.0 31.0 FINAL Randy edward [address] [id number] 0 Phone: () - 10/30 CBC w/ auto diff MCHC g/dL 30.0 35.0 33.4 FINAL Randy edward [address] [id number] 0 Phone: () - 10/30 CBC w/ auto diff MPV fL 9.5 13.4 8.4 Low FINAL Randy edward [address] [id number] 0 Phone: () - 10/30 CBC w/ auto diff RDW % 11.3 15.6 14.20 FINAL Randy edward [address] [phone] 0 Phone: () - 03/04 LDH panel LDH U/L 120.0 246.0 205 FINAL Randy edward [address] [id number] 0 Phone: () - 03/04 CMP ALT/S GPT U/L 7.0 40.0 34 FINAL Randy edward [address] [id number] 0 Phone: () - 03/04 CMP AST/S GOT U/L 13.0 40.0 28 FINAL Randy edward [address] [id number] 0 Phone: () - 03/04 CMP BUN mg/dL 9.0 23.0 28 High FINAL Randy edward [address] [id number] 0 Phone: () - 03/04 CMP Calci um mg/dL 8.7 10.4 9.9 FINAL Randy edward [address] [id number] 0 Phone: () - 03/04 CMP Chlor constance mmol/L 96.0 114.0 104 FINAL Randy edward [address] [phone] 0 Phone: () - 03/04 CMP CO2 mmol/L 20.0 31.0 28 FINAL Randy edward [address] [id number] 0 Phone: () - 03/04 CMP Creat inine mg/dL 0.5 1.2 1.27 High FINAL Randy Garduno [address] [id number] 0 Phone: () - 03/04 CMP GFR estim ate ml/min /1.73m ^2 57.2 Low GFR is calculate d using the CKD-EPI equation. FINAL Randy edward [address] [phone] 0 Phone: () - 03/04 CMP Gluco se mg/dL 73.0 126.0 99 FINAL Randy Garduno [address] [phone] 0 Phone: () - 03/04 CMP Potas sium mmol/L 3.5 5.1 4.4 FINAL Randy Garduno [address] [id number] 0 Phone: () - 03/04 CMP Sodiu m mmol/L 136.0 145.0 138 FINAL Randy Rider[address] [id number] 0 Phone: () - 03/04 CMP Bilir ubin, total mg/dL 0.3 1.2 0.3 FINAL Randy Garduno [address] [id number] 0 Phone: () - 03/04 CMP Total prote in g/dL 5.7 8.2 7.2 FINAL Randy edward [address] [id number] 0 Phone: () - 03/04 CMP Album in g/dL 3.2 5.2 5.0 FINAL Randy edward [address] [place] [phone] 0 Phone: () - 03/04 CMP Alkal ine phosp hatas e U/L 46.0 116.0 118 High FINAL Randy Rider[address] [phone] 0 Phone: () - 03/04 CBC w/ auto diff WBC K/uL 3.0 8.9 5.5 FINAL Randy Rider[address] [id number] 0 Phone: () - 03/04 CBC w/ auto diff HGB g/dL 12.5 16.6 13.0 FINAL Randy edward [address] [id number] 0 Phone: () - 03/04 CBC w/ auto diff PLT K/uL 113.0 364.0 218 FINAL Randy Rider[address] [id number] 0 Phone: () - 03/04 CBC w/ auto diff Laisha # (ANC) K/uL 1.6 6.6 3.8 FINAL Randy Rider[address] [id number] 0 Phone: () - 03/04 CBC w/ auto diff Laisha % % 43.0 74.0 68.3 FINAL Randy Rider[address] [id number] 0 Phone: () - 03/04 CBC w/ auto diff IG % % 0.0 0.5 0.4 FINAL Randy Rider[address] [id number] 0 Phone: () - 03/04 CBC w/ auto diff IG # K/uL 0.0 0.03 0.02 FINAL Randy Rider[address] [id number] 0 Phone: () - 03/04 CBC w/ auto diff LY % % 14.0 41.0 17.3 FINAL Randy Rider[address] [id number] 0 Phone: () - 03/04 CBC w/ auto diff MO % % 6.0 15.0 8.8 FINAL Randy Rider[address] [id number] 0 Phone: () - 03/04 CBC w/ auto diff EO % % 0.0 7.0 3.8 FINAL Randy edward [address] [id number] 0 Phone: () - 03/04 CBC w/ auto diff BA % % 0.0 2.0 1.4 FINAL Randy edward [address] [id number] 0 Phone: () - 03/04 CBC w/ auto diff LY # K/uL 0.4 3.6 1.0 FINAL Randy edward [address] [id number] 0 Phone: () - 03/04 CBC w/ auto diff MO # K/uL 0.2 1.3 0.5 FINAL Randy edward [address] [id number] 0 Phone: () - 03/04 CBC w/ auto diff EO # K/uL 0.0 0.6 0.2 FINAL Randy edward [address] [id number] 0 Phone: () - 03/04 CBC w/ auto diff BA # K/uL 0.0 0.2 0.1 FINAL Randy edward [address] [id number] 0 Phone: () - 03/04 CBC w/ auto diff NRBC % #/100W BC 0.0 0.2 0.0 AC edward [address] [phone] 0 Phone: () - 03/04 CBC w/ auto diff RBC M/uL 4.2 5.6 4.20 FINAL Randy Rider che[place] [address] [id number] 0 Phone: () - 03/04 CBC w/ auto diff HCT % 39.0 49.0 39.6 AC edward [address] [id number] 0 Phone: () - 03/04 CBC w/ auto diff MCV fL 80.0 104.0 94.3 FINAL Randy edward [address] [phone] 0 Phone: () - 03/04 CBC w/ auto diff MCH pg 26.0 35.0 31.0 FINAL Randy edward [address] [id number] 0 Phone: () - 03/04 CBC w/ auto diff MCHC g/dL 30.0 35.0 32.8 FINAL Randy edward [address] [id number] 0 Phone: () - 03/04 CBC w/ auto diff MPV fL 9.5 13.4 8.4 Low FINAL Randy edward [address] [id number] 0 Phone: () - 03/04 CBC w/ auto diff RDW % 11.3 15.6 12.60 FINAL Randy edward [address] [phone] 0 Phone: () - 06/05 CMP Album in g/dL 3.2 5.2 4.8 FINAL Randy edward [address] [id number] 0 Phone: () - 06/05 CMP Alkal ine phosp hatas e U/L 46.0 116.0 139 High FINAL Randy edward [address] [id number] 0 Phone: () - 06/05 CMP ALT/S GPT U/L 7.0 40.0 27 FINAL Randy edwadr [address] [id number] 0 Phone: () - 06/05 CMP AST/S GOT U/L 13.0 40.0 24 FINAL Randy edward [address] [id number] 0 Phone: () - 06/05 CMP BUN mg/dL 9.0 23.0 29 High FINAL Randy Ducker [place] [id number] 0 Phone: () - 06/05 CMP Calci um mg/dL 8.7 10.4 10.1 FINAL Randy edward [address] [id number] 0 Phone: () - 06/05 CMP Chlor constance mmol/L 96.0 114.0 106 FINAL Randy Rider[address] [phone] 0 Phone: () - 06/05 CMP CO2 mmol/L 20.0 31.0 28 FINAL Randy Rider[address] [id number] 0 Phone: () - 06/05 CMP Creat inine mg/dL 0.5 1.2 1.47 High FINAL Randy Rider[address] [id number] 0 Phone: () - 06/05 CMP GFR estim ate ml/min /1.73m ^2 47.9 Low GFR is calculate d using the CKD-EPI equation. FINAL Randy Rider[address] [phone] 0 Phone: () - 06/05 CMP Gluco se mg/dL 73.0 126.0 96 FINAL Randy Rider[address] [id number] 0 Phone: () - 06/05 CMP Potas sium mmol/L 3.5 5.1 4.6 FINAL Randy Garduno [address] [id number] 0 Phone: () - 06/05 CMP Sodiu m mmol/L 136.0 145.0 138 FINAL Randy Rider[address] [phone] 0 Phone: () - 06/05 CMP Bilir ubin, total mg/dL 0.3 1.2 0.[address] [place] [phone] 0 Phone: () - 06/05 CMP Total prote in g/dL 5.7 8.2 7.4 FINAL Randy Garduno [address] [id number] 0 Phone: () - 06/05 CBC w/ auto diff WBC K/uL 3.0 8.9 7.0 FINAL Randy edward [address] [id number] 0 Phone: () - 06/05 CBC w/ auto diff HGB g/dL 12.5 16.6 13.2 FINAL Randy Rider[address] [id number] 0 Phone: () - 06/05 CBC w/ auto diff PLT K/uL 113.0 364.0 245 FINAL Randy Rider[address] [id number] 0 Phone: () - 06/05 CBC w/ auto diff Laisha # (ANC) K/uL 1.6 6.6 4.8 FINAL Randy Rider[address] [id number] 0 Phone: () - 06/05 CBC w/ auto diff Laisha % % 43.0 74.0 69.2 FINAL Randy Rider[address] [id number] 0 Phone: () - 06/05 CBC w/ auto diff IG % % 0.0 0.5 0.4 FINAL Randy Garduno [address] [id number] 0 Phone: () - 06/05 CBC w/ auto diff IG # K/uL 0.0 0.03 0.03 FINAL Randy Garduno [address] [id number] 0 Phone: () - 06/05 CBC w/ auto diff LY % % 14.0 41.0 15.9 FINAL Randy Rider [facility] [address] [id number] 0 Phone: () - 06/05 CBC w/ auto diff MO % % 6.0 15.0 9.2 FINAL Randy edward [address] [id number] 0 Phone: () - 06/05 CBC w/ auto diff EO % % 0.0 7.0 3.9 FINAL Randy edward [address] [id number] 0 Phone: () - 06/05 CBC w/ auto diff BA % % 0.0 2.0 1.4 FINAL Randy Rider [place] [address] [id number] 0 Phone: () - 06/05 CBC w/ auto diff LY # K/uL 0.4 3.6 1.1 FINAL Randy edward [address] [id number] 0 Phone: () - 06/05 CBC w/ auto diff MO # K/uL 0.2 1.3 0.6 FINAL Randy edward [address] [id number] 0 Phone: () - 06/05 CBC w/ auto diff EO # K/uL 0.0 0.6 0.3 FINAL Randy edward [address] [id number] 0 Phone: () - 06/05 CBC w/ auto diff BA # K/uL 0.0 0.2 0.1 FINAL Randy edward [facility] [address] [id number] 0 Phone: () - 06/05 CBC w/ auto diff NRBC % #/100W BC 0.0 0.2 0.0 FINAL Randy edward [facility] [address] [id number] 0 Phone: () - 06/05 CBC w/ auto diff RBC M/uL 4.2 5.6 4.21 FINAL Randy edward [address] [id number] 0 Phone: () - 06/05 CBC w/ auto diff HCT % 39.0 49.0 38.8 Low FINAL Randy edward [address] [id number] 0 Phone: () - 06/05 CBC w/ auto diff MCV fL 80.0 104.0 92.2 FINAL Randy edward [address] [id number] 0 Phone: () - 06/05 CBC w/ auto diff MCH pg 26.0 35.0 31.4 FINAL Randy edward [address] [id number] 0 Phone: () - 06/05 CBC w/ auto diff MCHC g/dL 30.0 35.0 34.0 FINAL Randy edward [address] [id number] 0 Phone: () - 06/05 CBC w/ auto diff MPV fL 9.5 13.4 8.1 Low FINAL Randy edward [address] [id number] 0 Phone: () - 06/05 CBC w/ auto diff RDW % 11.3 15.6 12.70 FINAL Randy edward [address] [id number] 0 Phone: () - 06/06 LDH panel LDH IU/L 125.0 220.0 170 Test Performed by:[facility] [address], [address] - [facility] [address]Pvlc e : AC Arriaga 07/02 [facility] [place] See scallop dredger lynette 10/03 CBC w/ auto diff WBC K/uL 3.0 8.9 5.4 FINAL Randy edward [address] [id number] 0 Phone: () - 10/03 CBC w/ auto diff HGB g/dL 12.5 16.6 10.9 Low FINAL Randy edward [address] [phone] 0 Phone: () - 10/03 CBC w/ auto diff PLT K/uL 113.0 364.0 197 FINAL Randy edward [address] [id number] 0 Phone: () - 10/03 CBC w/ auto diff Laisha # (ANC) K/uL 1.6 6.6 3.6 FINAL Randy edward [address] [id number] 0 Phone: () - 10/03 CBC w/ auto diff Laisha % % 43.0 74.0 67.0 FINAL Randy edward [address] [id number] 0 Phone: () - 10/03 CBC w/ auto diff IG % % 0.0 0.5 0.9 High FINAL Randy edward [address] [id number] 0 Phone: () - 10/03 CBC w/ auto diff IG # K/uL 0.0 0.03 0.05 High FINAL Randy edward [address] [id number] 0 Phone: () - 10/03 CBC w/ auto diff LY % % 14.0 41.0 19.4 FINAL Randy edward [address] [id number] 0 Phone: () - 10/03 CBC w/ auto diff MO % % 6.0 15.0 8.8 FINAL Randy Garduno [address] [id number] 0 Phone: () - 10/03 CBC w/ auto diff EO % % 0.0 7.0 2.6 FINAL Randy edward [address] [id number] 0 Phone: () - 10/03 CBC w/ auto diff BA % % 0.0 2.0 1.3 FINAL Randy Garduno [address] [id number] 0 Phone: () - 10/03 CBC w/ auto diff LY # K/uL 0.4 3.6 1.0 FINAL Randy edward [address] [id number] 0 Phone: () - 10/03 CBC w/ auto diff MO # K/uL 0.2 1.3 0.5 FINAL Randy Garduno [address] [id number] 0 Phone: () - 10/03 CBC w/ auto diff EO # K/uL 0.0 0.6 0.1 FINAL Randy Garduno [address] [id number] 0 Phone: () - 10/03 CBC w/ auto diff BA # K/uL 0.0 0.2 0.1 FINAL Randy Garduno [address] [id number] 0 Phone: () - 10/03 CBC w/ auto diff NRBC % #/100W BC 0.0 0.2 0.0 FINAL Randy Garduno [address] [id number] 0 Phone: () - 10/03 CBC w/ auto diff RBC M/uL 4.2 5.6 3.46 Low FINAL Randy Rider[address] [id number] 0 Phone: () - 10/03 CBC w/ auto diff HCT % 39.0 49.0 32.5 Low FINAL Randy Garduno [address] [id number] 0 Phone: () - 10/03 CBC w/ auto diff MCV fL 80.0 104.0 93.9 FINAL Randy Rider[address] [id number] 0 Phone: () - 10/03 CBC w/ auto diff MCH pg 26.0 35.0 31.5 FINAL Randy edward [address] [id number] 0 Phone: () - 10/03 CBC w/ auto diff MCHC g/dL 30.0 35.0 33.5 FINAL Randy edward [address] [id number] 0 Phone: () - 10/03 CBC w/ auto diff MPV fL 9.5 13.4 8.4 Low FINAL Randy Rider che[place]ne [address] [id number] 0 Phone: () - 10/03 CBC w/ auto diff RDW % 11.3 15.6 13.60 FINAL Randy edward [address] [id number] 0 Phone: () - 10/03 CMP Album in g/dL 3.2 5.2 4.2 FINAL Randy edward [address] [id number] 0 Phone: () - 10/03 CMP Alkal ine phosp hatas e U/L 46.0 116.0 99 FINAL Randy Rider[address] [id number] 0 Phone: () - 10/03 CMP ALT/S GPT U/L 7.0 40.0 24 FINAL Randy edward [address] [place] [phone] 0 Phone: () - 10/03 CMP AST/S GOT U/L 13.0 40.0 21 FINAL Randy Rider[address] [id number] 0 Phone: () - 10/03 CMP BUN mg/dL 9.0 23.0 26 High FINAL Randy Rider [place] [address] [id number] 0 Phone: () - 10/03 CMP Calci um mg/dL 8.7 10.4 9.5 FINAL Randy Garduno [address] [id number] 0 Phone: () - 10/03 CMP Chlor constance mmol/L 96.0 114.0 109 FINAL Randy Garduno [address] [id number] 0 Phone: () - 10/03 CMP CO2 mmol/L 20.0 31.0 27 FINAL Randy Rider[address] [id number] 0 Phone: () - 10/03 CMP Creat inine mg/dL 0.5 1.2 1.20 FINAL Randy Rider[address] [id number] 0 Phone: () - 10/03 CMP GFR estim ate ml/min /1.73m ^2 61.1 GFR is calculate d using the CKD-EPI equation. FINAL Randy Rider[address] [id number] 0 Phone: () - 10/03 CMP Gluco se mg/dL 73.0 126.0 93 FINAL Randy Rider[address] [id number] 0 Phone: () - 10/03 CMP Potas sium mmol/L 3.5 5.1 4.8 [facility] Randy Rider[address] [id number] 0 Phone: () - 10/03 CMP Sodiu m mmol/L 136.0 145.0 139 FINAL Randy Rider[address] [id number] 0 Phone: () - 10/03 CMP Bilir ubin, total mg/dL 0.3 1.2 0.2 Low FINAL Randy Rider[address] [id number] 0 Phone: () - 10/03 CMP Total prote in g/dL 5.7 8.2 6.7 FINAL Randy edward [facility], [address] [facility] [address] [facility] [phone] 0 Phone: () - 10/03 LDH panel LDH U/L 120.0 246.0 180 FINAL Randy edward [facility], [address] [facility] 100 [facility] [phone] 0 Phone: () - 11/06 Misc other lab See scallop dredger d 04/06 LDH panel LDH U/L 120.0 246.0 189 FINAL Randy edward [facility], [address] [id number] 0 Phone: () - 04/06 CBC w/ auto diff WBC K/uL 3.0 8.9 6.2 FINAL Randy edward [facility], [address] [id number] 0 Phone: () - 04/06 CBC w/ auto diff HGB g/dL 12.5 16.6 12.5 FINAL Randy edward [facility], [address] [id number] 0 Phone: () - 04/06 CBC w/ auto diff PLT K/uL 113.0 364.0 238 FINAL Randy edward [facility], [address] [id number] 0 Phone: () - 04/06 CBC w/ auto diff Laisha # (ANC) K/uL 1.6 6.6 4.5 FINAL Randy edward [facility], [address] [id number] 0 Phone: () - 04/06 CBC w/ auto diff Laisha % % 43.0 74.0 73.4 FINAL [place] [address] [id number] 0 Phone: () - 04/06 CBC w/ auto diff IG % % 0.0 0.5 0.3 FINAL Randy edward [facility], [address] [facility] [address] [id number] 0 Phone: () - 04/06 CBC w/ auto diff IG # K/uL 0.0 0.03 0.02 FINAL Randy edward [facility], [address] [facility] [address] [id number] 0 Phone: () - 04/06 CBC w/ auto diff LY % % 14.0 41.0 14.6 FINAL Randy edward [facility], [address] [facility] [address] [phone] 0 Phone: () - 04/06 CBC w/ auto diff MO % % 6.0 15.0 8.3 FINAL Randy edward [facility], [address] [facility] [address] [id number] 0 Phone: () - 04/06 CBC w/ auto diff EO % % 0.0 7.0 2.3 FINAL Randy edward [facility], [address] [id number] 0 Phone: () - 04/06 CBC w/ auto diff BA % % 0.0 2.0 1.1 FINAL Randy edward [facility], [address] [facility] [address] [id number] 0 Phone: () - 04/06 CBC w/ auto diff LY # K/uL 0.4 3.6 0.9 AC edward [facility], [address] [id number] 0 Phone: () - 04/06 CBC w/ auto diff MO # K/uL 0.2 1.3 0.5 FINAL Randy edward [facility], [address] [facility] [address] [id number] 0 Phone: () - 04/06 CBC w/ auto diff EO # K/uL 0.0 0.6 0.1 FINAL Randy edward [facility], [address] [id number] 0 Phone: () - 04/06 CBC w/ auto diff BA # K/uL 0.0 0.2 0.1 FINAL Randy edward [facility], [address] [facility] [address] [place] [phone] 0 Phone: () - 04/06 CBC w/ auto diff NRBC % #/100W BC 0.0 0.2 0.0 FINAL Randy edward [facility] [address] [id number] 0 Phone: () - 04/06 CBC w/ auto diff RBC M/uL 4.2 5.6 3.96 Low FINAL Randy edward [facility] [address] [id number] 0 Phone: () - 04/06 CBC w/ auto diff HCT % 39.0 49.0 37.3 Low FINAL Randy edward [facility] [address] [id number] 0 Phone: () - 04/06 CBC w/ auto diff MCV fL 80.0 104.0 94.2 FINAL Randy edward [facility] [address] [id number] 0 Phone: () - 04/06 CBC w/ auto diff MCH pg 26.0 35.0 31.6 FINAL Randy edward [facility] [address] [id number] 0 Phone: () - 04/06 CBC w/ auto diff MCHC g/dL 30.0 35.0 33.5 FINAL Randy edward [facility] [address] [id number] 0 Phone: () - 04/06 CBC w/ auto diff MPV fL 9.5 13.4 8.5 Low FINAL Randy edward [facility] [address] [facility] [address] [id number] 0 Phone: () - 04/06 CBC w/ auto diff RDW % 11.3 15.6 13.20 FINAL Randy edward [facility] [address] [id number] 0 Phone: () - 04/06 CMP Album in g/dL 3.2 5.2 4.5 FINAL Randy edward [facility], [address] [facility] [address] [id number] 0 Phone: () - 04/06 CMP Alkal ine phosp hatas e U/L 46.0 116.0 118 High FINAL Randy edward [facility] [address] [id number] 0 Phone: () - 04/06 CMP ALT/S GPT U/L 7.0 40.0 21 FINAL Randy edward [place] [address] [id number] 0 Phone: () - 04/06 CMP AST/S GOT U/L 13.0 40.0 20 FINAL Randy Garduno [place] [address] [id number] [phone] Phone: () - 04/06 CMP BUN mg/dL 9.0 23.0 30 High FINAL Randy edward [place] [address] [id number] 0 Phone: () - 04/06 CMP Calci um mg/dL 8.7 10.4 10.8 High FINAL Randy edward [place] [address] [id number] 0 Phone: () - 04/06 CMP Chlor constance mmol/L 96.0 114.0 107 FINAL Randy Garduno [place] [address] [id number] 0 Phone: () - 04/06 CMP CO2 mmol/L 20.0 31.0 24 The [...] 96 hour stability window. FINAL Randy edward [facility] [facility] [address] [phone] 0 Phone: () - 04/06 CMP Creat inine mg/dL 0.5 1.2 1.21 High FINAL Randy edward [facility] [address] [phone] 0 Phone: () - 04/06 CMP GFR estim ate ml/min /1.73m ^2 60.2 GFR is calculate d using the CKD-EPI equation. FINAL Randy edward [place] [address] [id number] 0 Phone: () - 04/06 CMP Gluco se mg/dL 73.0 126.0 101 FINAL Randy edward [place] [address] [phone] 0 Phone: () - 04/06 CMP Potas sium mmol/L 3.5 5.1 4.8 FINAL Randy edward [place] [address] [id number] 0 Phone: () - 04/06 CMP Sodiu m mmol/L 136.0 145.0 139 FINAL Randy Garduno [place] [address] [id number] 0 Phone: () - 04/06 CMP Bilir ubin, total mg/dL 0.3 1.2 0.3 AC edward [place] [address] [id number] 0 Phone: () - 04/06 CMP Total prote in g/dL 5.7 8.2 7.2 AC edward [place] [address] [id number] 0 Phone: () - 09/24 CBC w/ auto diff WBC K/uL 3.0 8.9 6.0 FINAL Randy edward [place] [address] [id number] 0 Phone: () - 09/24 CBC w/ auto diff HGB g/dL 12.5 16.6 12.7 AC edward [place] [address] [id number] 0 Phone: () - 09/24 CBC w/ auto diff PLT K/uL 113.0 364.0 229 FINAL Randy edward [facility], [address] [facility] [id number] 0 Phone: () - 09/24 CBC w/ auto diff Laisha # (ANC) K/uL 1.6 6.6 4.1 FINAL Randy edward [facility], [address] [facility] [id number] 0 Phone: () - 09/24 CBC w/ auto diff Laisha % % 43.0 74.0 69.5 FINAL Randy edward [facility], [address] [facility] [address] [id number] 0 Phone: () - 09/24 CBC w/ auto diff IG % % 0.0 0.5 0.5 FINAL Randy edward [facility], [address] [facility] [address] [id number] 0 Phone: () - 09/24 CBC w/ auto diff IG # K/uL 0.0 0.03 0.03 FINAL Randy edward [facility], [address] [facility] [address] [id number] 0 Phone: () - 09/24 CBC w/ auto diff LY % % 14.0 41.0 18.3 FINAL Randy edward [facility], [address] [facility] [address] [id number] 0 Phone: () - 09/24 CBC w/ auto diff MO % % 6.0 15.0 8.2 FINAL Randy edward [facility], [address] [facility] [address] [id number] 0 Phone: () - 09/24 CBC w/ auto diff EO % % 0.0 7.0 2.2 FINAL Randy edward [facility], [address] [facility] [address] [id number] 0 Phone: () - 09/24 CBC w/ auto diff BA % % 0.0 2.0 1.3 FINAL Randy edward [facility], [address] [facility] [address] [id number] 0 Phone: () - 09/24 CBC w/ auto diff LY # K/uL 0.4 3.6 1.1 FINAL Randy edward [facility], [address] [facility] [address] [id number] 0 Phone: () - 09/24 CBC w/ auto diff MO # K/uL 0.2 1.3 0.5 FINAL Randy edward [facility] [address] [facility] [address] [id number] 0 Phone: () - 09/24 CBC w/ auto diff EO # K/uL 0.0 0.6 0.1 FINAL Randy edward [facility] [address] [facility] [address] [id number] 0 Phone: () - 09/24 CBC w/ auto diff BA # K/uL 0.0 0.2 0.1 FINAL Randy Garduno [facility] [address] [facility] [address] [id number] 0 Phone: () - 09/24 CBC w/ auto diff NRBC % #/100W BC 0.0 0.2 0.0 FINAL Randy Garduno [facility], [address] [id number] 0 Phone: () - 09/24 CBC w/ auto diff RBC M/uL 4.2 5.6 4.07 Low FINAL Randy Garduno [facility], [address] [id number] 0 Phone: () - 09/24 CBC w/ auto diff HCT % 39.0 49.0 37.3 Low FINAL Randy edward [facility], [address] [facility] [address] [id number] 0 Phone: () - 09/24 CBC w/ auto diff MCV fL 80.0 104.0 91.6 FINAL Randy edward [facility], [address] [facility] [address] [id number] 0 Phone: () - 09/24 CBC w/ auto diff MCH pg 26.0 35.0 31.2 FINAL Randy edward [facility], [address] [id number] 0 Phone: () - 09/24 CBC w/ auto diff MCHC g/dL 30.0 35.0 34.0 FINAL Randy edward [place] [address] [id number] 0 Phone: () - 09/24 CBC w/ auto diff MPV fL 9.5 13.4 8.5 Low FINAL Randy edward [place] [address] [id number] 0 Phone: () - 09/24 CBC w/ auto diff RDW % 11.3 15.6 12.90 FINAL Randy Garduno [address] [id number] 0 Phone: () - 09/24 CMP Album in g/dL 3.2 5.2 4.4 FINAL Randy edward [place] [address] [id number] 0 Phone: () - 09/24 CMP Alkal ine phosp hatas e U/L 46.0 116.0 105 FINAL Randy Garduno [place] [address] [id number] 0 Phone: () - 09/24 CMP ALT/S GPT U/L 7.0 40.0 25 FINAL Randy Garduno [place] [address] [id number] 0 Phone: () - 09/24 CMP AST/S GOT U/L 13.0 40.0 20 FINAL Randy Garduno [place] [address] [id number] 0 Phone: () - 09/24 CMP BUN mg/dL 9.0 23.0 23 FINAL Randy edward [place] [address] [id number] 0 Phone: () - 09/24 CMP Calci um mg/dL 8.7 10.4 10.2 FINAL Randy edward [place] [address] [id number] 0 Phone: () - 09/24 CMP Chlor constance mmol/L 96.0 114.0 107 FINAL Randy edward [place] [address] [id number] 0 Phone: () - 09/24 CMP CO2 [...] 96 hour stability window. FINAL Randy edward [address] [id number] 0 Phone: () - 09/24 CMP Creat inine mg/dL 0.5 1.2 1.41 High FINAL Randy Garduno [address] [id number] 0 Phone: () - 09/24 CMP GFR estim ate ml/min /1.73m ^2 53.4 Low GFR is calculate d using the CKD-EPI equation. FINAL Randy edward [place] [address] [id number] 0 Phone: () - 09/24 CMP Gluco se mg/dL 73.0 126.0 104 FINAL Randy edward [place] [address] [id number] 0 Phone: () - 09/24 CMP Potas sium mmol/L 3.5 5.1 4.8 FINAL Randy Garduno [place] [address] [id number] 0 Phone: () - 09/24 CMP Sodiu m mmol/L 136.0 145.0 139 FINAL Randy edward [place] [address] [id number] 0 Phone: () - 09/24 CMP Bilir ubin, total mg/dL 0.3 1.2 0.3 FINAL Randy edward [facility], [address] [facility] [id number] 0 Phone: () - 09/24 CMP Total prote in g/dL 5.7 8.2 7.0 FINAL Randy edward [facility], [address] [facility] [id number] 0 Phone: () - 09/24 LDH panel LDH U/L 120.0 246.0 175 FINAL [facility] [address] [facility] [id number] 0 Phone: () - 01/12 Misc other lab See scallop dredger d 11/11 Misc other lab See scallop dredger d 11/18 Misc other lab See scallop dredger d 12/09 LDH panel LDH U/L 120.0 246.0 224 FINAL Augustus Sorensen [facility], [address] [facility] [id number] 0 Phone: () - 12/09 CMP Album in g/dL 3.2 5.2 4.2 FINAL Augustus Sorensen [facility], [address] [facility] [id number] 0 Phone: () - 12/09 CMP Alkal ine phosp hatas e U/L 46.0 116.0 84 FINAL Augustus Edu [facility], [address] [facility] [id number] 0 Phone: () - 12/09 CMP ALT/S GPT U/L 7.0 40.0 28 FINAL Augustus Edu [facility], [address] [facility] [id number] 0 Phone: () - 12/09 CMP AST/S GOT U/L 13.0 40.0 25 FINAL Augustus Edu [facility], [address] [facility] [id number] 0 Phone: () - 12/09 CMP BUN mg/dL 9.0 23.0 21.0 FINAL Augustus [place] [address] [id number] 0 Phone: () - 12/09 CMP Calci um mg/dL 8.7 10.4 9.3 FINAL [place]a [place] [address] [id number] 0 Phone: () - 12/09 CMP Chlor constance mmol/L 96.0 114.0 105 FINAL Augustus Jain [place] [address] [id number] 0 Phone: () - 12/09 CMP CO2 [...] of the 96 hour stability window. FINAL [place] [address] [id number] 0 Phone: () - 12/09 CMP Creat inine mg/dL 0.5 1.2 2.02 High FINAL Augustus Edu [place] [address] [id number] 0 Phone: () - 12/09 CMP GFR estim ate ml/min /1.73m ^2 34.4 Low GFR is calculate d using the CKD-EPI equation. FINAL Augustus Jain [place] [address] [id number] 0 Phone: () - 12/09 CMP Gluco se mg/dL 73.0 126.0 97 FINAL [place] [address] [id number] 0 Phone: () - 12/09 CMP Potas sium mmol/L 3.5 5.1 4.8 FINAL [facility] [place] [address] [id number] 0 Phone: () - 12/09 CMP Sodiu m mmol/L 136.0 145.0 139 FINAL Augustus Edu Garduno [facility] [place], [address] [facility] [address] [place] [id number] 0 Phone: () - 12/09 CMP Bilir ubin, total mg/dL 0.3 1.2 0.2 Low FINAL Augustus Edu Riderot [facility], [address] [facility] [address] [place] [id number] 0 Phone: () - 12/09 CMP Total prote in g/dL 5.7 8.2 6.7 FINAL Augustus Edu Riderot [facility], [address] [facility] [address] [place] [id number] 0 Phone: () - 12/09 CBC w/ auto diff WBC K/uL 3.0 8.9 6.2 FINAL Augustus Edu Riderot [facility] [place], [address] [facility] [place] [phone] 0 Phone: () - 12/09 CBC w/ auto diff HGB g/dL 12.5 16.6 12.2 Low FINAL Augustus Edu Riderot [facility] [place], [facility] [address] [facility] [place] [phone] 0 Phone: () - 12/09 CBC w/ auto diff PLT K/uL 113.0 364.0 210 FINAL Augustus Edu Riderot [facility] [place], [facility] [address] [facility] [place] [id number] 0 Phone: () - 12/09 CBC w/ auto diff Laisha # (ANC) K/uL 1.6 6.6 4.1 FINAL Augustus Edu Riderot [facility] [place], [facility] [address] [place] [id number] 0 Phone: () - 12/09 CBC w/ auto diff Laisha % % 43.0 74.0 66.5 FINAL Augustus Edu Riderot [facility] [place], [facility] [address] [place] [id number] 0 Phone: () - 12/09 CBC w/ auto diff IG % % 0.0 0.5 0.3 FINAL Augustus Garduno [facility] [place], [address] [place] [id number] 0 Phone: () - 12/09 CBC w/ auto diff IG # K/uL 0.0 0.03 0.02 FINAL Augustus Garduno [facility] [place], [address] [place] [id number] 0 Phone: () - 12/09 CBC w/ auto diff LY % % 14.0 41.0 19.6 FINAL Augustus Garduno [facility] [place], [address] [place] [phone] 0 Phone: () - 12/09 CBC w/ auto diff MO % % 6.0 15.0 9.5 FINAL Augustus Garduno [facility] [place], [address] [place] [phone] 0 Phone: () - 12/09 CBC w/ auto diff EO % % 0.0 7.0 2.7 FINAL Augustus Garduno [facility] [place], [address] [place] [phone] 0 Phone: () - 12/09 CBC w/ auto diff BA % % 0.0 2.0 1.4 FINAL Augustus Garduno [facility] [place], [address] [place] [id number] 0 Phone: () - 12/09 CBC w/ auto diff LY # K/uL 0.4 3.6 1.2 FINAL Augustus Garduno [facility] - [place], [address] [place] [phone] 0 Phone: () - 12/09 CBC w/ auto diff MO # K/uL 0.2 1.3 0.6 FINAL Augustus [place]en [place] [facility] [place], [address] [place] [id number] 0 Phone: () - 12/09 CBC w/ auto diff EO # K/uL 0.0 0.6 0.2 FINAL Augustus Edu Riderot [facility] - [place], [address] [place] [phone] 0 Phone: () - 12/09 CBC w/ auto diff BA # K/uL 0.0 0.2 0.1 FINAL Augustus Edu Riderot [facility] - [place], [address] [place] [id number] 0 Phone: () - 12/09 CBC w/ auto diff NRBC % #/100W BC 0.0 0.2 0.0 FINAL Augustus Edu Riderot [facility] - [place], [address] [place] [phone] 0 Phone: () - 12/09 CBC w/ auto diff RBC M/uL 4.2 5.6 3.86 Low FINAL Augustus Edu R[facility] - [place], [address] [place] [id number] 0 Phone: () - 12/09 CBC w/ auto diff HCT % 39.0 49.0 36.3 Low FINAL Augustus Edu R[facility]ot [facility] - [place], [address] [place] [id number] 0 Phone: () - 12/09 CBC w/ auto diff MCV fL 80.0 104.0 94.0 FINAL Augustus Edu Riderot [facility] - [place], [address] [place] [phone] 0 Phone: () - 12/09 CBC w/ auto diff MCH pg 26.0 35.0 31.6 FINAL Augustus Edu Riderot [facility] - [place], [address] [place] [id number] 0 Phone: () - 12/09 CBC w/ auto diff MCHC g/dL 30.0 35.0 33.6 FINAL Augustus edward [facility] - [place], [address] [place] [phone] 0 Phone: () - 12/09 CBC w/ auto diff MPV fL 9.5 13.4 9.0 Low FINAL Augustus edward [facility] - [place], [address] [facility] [address] [place] [phone] 0 Phone: () - 12/09 CBC w/ auto diff RDW % 11.3 15.6 12.90 FINAL Augustus edward [facility] - [place], [address] [facility] [address] [place] [phone] 0 Phone: () - Medications Date Name [...] CKD Active Vital Signs Date Type Value 11/22/2019 BMI 32.81 11/22/2019 Height 68.00 11/22/2019 Weight 215.80 11/22/2019 Pain Scale 0.00 11/22/2019 BSA 2.11 11/22/2019 Oxygen Saturation 96.00 11/22/2019 Respiratory Rate 16.00 11/22/2019 Heart Beat 73.00 11/22/2019 Body Temperature 97.00 11/22/2019 Intravascular Systolic 116 11/22/2019 Intravascular Diastolic 72 06/05/2020 BSA 2.12 06/05/2020 BMI 33.01 06/05/2020 Body Temperature 96.60 06/05/2020 Heart Beat 76.00 06/05/2020 Respiratory Rate 18.00 06/05/2020 Oxygen Saturation 97.00 06/05/2020 Intravascular Systolic 120 06/05/2020 Intravascular Diastolic 64 06/05/2020 Pain Scale 0.00 06/05/2020 Height 68.00 06/05/2020 Weight 217.10 10/03/2020 BMI 32.92 10/03/2020 Height 68.00 10/03/2020 Weight 216.50 10/03/2020 Pain Scale 0.00 10/03/2020 Intravascular Systolic 126 10/03/2020 Intravascular Diastolic 58 10/03/2020 Oxygen Saturation 98.00 10/03/2020 Heart Beat 67.00 10/03/2020 Body Temperature 95.90 10/03/2020 BSA 2.11 04/06/2021 Intravascular Systolic 116 04/06/2021 Intravascular Diastolic 72 04/06/2021 Oxygen Saturation 98.00 04/06/2021 Heart Beat 67.00 04/06/2021 Body Temperature 95.90 04/06/2021 BSA 2.10 04/06/2021 Weight 212.00 04/06/2021 Height 68.00 04/06/2021 BMI 32.23 04/06/2021 Pain Scale 0.00 09/24/2021 Intravascular Systolic 126 09/24/2021 Intravascular Diastolic 61 09/24/2021 Oxygen Saturation 96.00 09/24/2021 Heart Beat 78.00 09/24/2021 Body Temperature 96.50 09/24/2021 Pain Scale 0.00 09/24/2021 BSA 2.12 09/24/2021 BMI 33.30 09/24/2021 Height 68.00 09/24/2021 Weight 219.00 12/09/2022 Body Temperature 97.30 12/09/2022 Heart Beat 69.00 12/09/2022 Respiratory Rate 18.00 12/09/2022 Oxygen Saturation 96.00 12/09/2022 BSA 2.09 12/09/2022 BMI 31.93 12/09/2022 Height 68.00 12/09/2022 Weight 210.00 12/09/2022 Pain Scale 0.00 12/09/2022 Intravascular Systolic 112 12/09/2022 Intravascular Diastolic 60
--- OUTSIDE RECORDS SUMMARY | 2024-11-01 19:08 | XMS_ITS ---
Author Name Interface, [id number] lity Address [address] [place] [address] [address] [place] [address] [facility] Address [address] [facility] [address] [place] [address] Allergies and Adverse Reactions Medication/Group Name Reaction [...] 35 NON H ODGKIN LYMPHOMA - SAW JD 11/20/2019 APPOINTMENT TMNP - 35 EPCON NON HODGKINS LYMP - 35 EPCON NON HODGKINS LYMP 11/15/2019 APPOINTMENT RC - 71 RC - 12 WEEKS 10/31/[address] - 71 ARM/CAP IV CHKIN@ - NON HODGKINS LYMPHOMA LARGE CE 10/31/[address] - 71 ARM/CAP IV CHKIN@ - NON HODGKINS LYMPHOMA LARGE CE 08/08/2019 APPOINTMENT PHONE - 38 3 MOS RC-PHONE conf - [phone] 08/08/2019 APPOINTMENT RC - 38 ARM 3 MO S RC - 38 ARM 3 MOS RC 05/09/2019 APPOINTMENT RC - 38 RC - REV IEW CT SCAN 05/04/2019 APPOINTMENT POUT - 38 PORT R EMOVAL - LYMPHOMA NON HODGKINS 05/02/[address] - [address] CA P W/CONT - LYMPHOMA NON HODGKINS 05/02/[address] - [address] CA P W/CONT - LYMPHOMA NON HODGKINS 04/19/2019 APPOINTMENT RCT5 - 38 PD RC RCHOP - PT HAS APPT WITH DAO @ 830 04/19/2019 APPOINTMENT RCT5 - 38 PD RC RCHOP - PT HAS APPT WITH DAO @ 830 04/19/2019 APPOINTMENT RCT5 - 38 PD RC RCHOP - PT HAS APPT WITH DAO @ 830 04/04/2019 APPOINTMENT PD - 38 PD - 38 PD 03/28/2019 APPOINTMENT PD - 38 PD - 38 PD 03/21/2019 APPOINTMENT RCT5 - 38 PD RCH OP - 38 PD RCHOP 03/21/2019 APPOINTMENT RCT5 - 38 PD RCH OP - 38 PD RCHOP 03/21/2019 APPOINTMENT RCT5 - 38 PD RCH OP - 38 PD RCHOP 02/28/2019 APPOINTMENT RCT5 - 38 PD RC RCHOP - 38 PD RC RCHOP 02/28/2019 APPOINTMENT RCT5 - 38 PD RC RCHOP - 38 PD RC RCHOP 02/28/2019 APPOINTMENT RCT5 - 38 PD RC RCHOP - 38 PD RC RCHOP 02/28/[address] chest/abdomen /pelvis w/ IV contrast 03/07/2019 LABORDER CBC w/ auto diff 03/21/2019 LABORDER CBC w/ auto diff 03/21/2019 LABORDER LDH panel 03/21/2019 LABORDER CMP 03/28/2019 LABORDER CBC w/ auto diff 04/04/2019 LABORDER CBC w/ auto diff 04/12/2019 LABORDER CMP 04/12/2019 LABORDER LDH panel 04/12/2019 LABORDER CBC w/ auto diff 05/03/[address] chest/abdomen /pelvis w/ IV contrast 05/03/2019 LABORDER Port removal 05/10/2019 LABORDER CBC w/ auto diff 05/10/2019 LABORDER LDH panel 05/10/2019 LABORDER CMP 08/08/2019 LABORDER LDH panel 08/08/2019 LABORDER CBC [...] Visit LAB 10 MIN Encounters Date Name 02/28/2019 CKD 02/28/2019 Diffuse non-Hodgkin' s lymphoma, large cell (disorder) Immunizations Date Name Route Dose Instructions Refusal Reason Stat us Flu vaccine - Adult Comp leted Covid-19 vaccine (Pfizer) Completed Covid-19 vaccine (Pfizer) Completed Flu vaccine - Adult Covid-19 vaccine (Pfizer) Diagnostic Results Date Type Test Units Lower Limit Upper Limit Result Flag Comments Status Ordered By Specimen Source Lab Address 02/28 CBC w/ auto diff WBC K/uL 3.0 8.9 8.0 FINAL Arun edward [address] [phone] Phone: () - 02/28 CBC w/ auto diff HGB g/dL 12.5 16.6 11.0 Low FINAL Arun edward [address] [id number] 0 Phone: () - 02/28 CBC w/ auto diff PLT K/uL 113.0 364.0 215 FINAL Arun edward [address] [phone] 0 Phone: () - 02/28 CBC w/ auto diff Laisha # (ANC) K/uL 1.6 6.6 5.8 FINAL Arun edward [address] [id number] 0 Phone: () - 02/28 CBC w/ auto diff Laisha % % 43.0 74.0 72.5 FINAL Arun edward [address] [id number] 0 Phone: () - 02/28 CBC w/ auto diff IG % % 0.0 0.5 1.4 High FINAL Arun edward [address] [id number] 0 Phone: () - 02/28 CBC w/ auto diff IG # K/uL 0.0 0.03 0.11 High FINAL Arun edward [address] [id number] 0 Phone: () - 02/28 CBC w/ auto diff LY % % 14.0 41.0 11.6 Low FINAL Arun edward [address] [id number] 0 Phone: () - 02/28 CBC w/ auto diff MO % % 6.0 15.0 10.2 FINAL Arun edward [address] [id number] 0 Phone: () - 02/28 CBC w/ auto diff EO % % 0.0 7.0 2.1 FINAL Arun [facility] [address] [phone] 0 Phone: () - 02/28 CBC w/ auto diff BA % % 0.0 2.0 2.2 High FINAL Arun edward [address] [id number] 0 Phone: () - 02/28 CBC w/ auto diff LY # K/uL 0.4 3.6 0.9 FINAL Arun edward [address] [id number] 0 Phone: () - 02/28 CBC w/ auto diff MO # K/uL 0.2 1.3 0.8 FINAL Arun edward [address] [id number] 0 Phone: () - 02/28 CBC w/ auto diff EO # K/uL 0.0 0.6 0.2 FINAL Arun edward [address] [id number] 0 Phone: () - 02/28 CBC w/ auto diff BA # K/uL 0.0 0.2 0.2 FINAL Arun edward [address] [id number] 0 Phone: () - 02/28 CBC w/ auto diff NRBC % #/100W BC 0.0 0.2 0.0 FINAL Arun edward [address] [id number] 0 Phone: () - 02/28 CBC w/ auto diff RBC M/uL 4.2 5.6 3.69 Low FINAL Arun edward [address] [id number] 0 Phone: () - 02/28 CBC w/ auto diff HCT % 39.0 49.0 33.6 Low FINAL Arun edward [address] [id number] 0 Phone: () - 02/28 CBC w/ auto diff MCV fL 80.0 104.0 91.1 FINAL Arun edward [address] [id number] 0 Phone: () - 02/28 CBC w/ auto diff MCH pg 26.0 35.0 29.8 FINAL Arun edward [address] [id number] 0 Phone: () - 02/28 CBC w/ auto diff MCHC g/dL 30.0 35.0 32.7 FINAL Arun edward [address] [place] [phone] 0 Phone: () - 02/28 CBC w/ auto diff MPV fL 9.5 13.4 8.1 Low FINAL Arun edward [address] [id number] 0 Phone: () - 02/28 CBC w/ auto diff RDW % 11.3 15.6 17.90 High FINAL Arun edward [address] [place] [phone] 0 Phone: () - 02/28 CMP Album in g/dL 3.2 5.2 4.5 FINAL Arun edward [address] [place] [phone] 0 Phone: () - 02/28 CMP Alkal ine phosp hatas e U/L 46.0 116.0 104 FINAL Arun edward [address] [id number] 0 Phone: () - 02/28 CMP ALT/S GPT U/L 7.0 40.0 17 FINAL Arun edward [address] [place] [phone] 0 Phone: () - 02/28 CMP AST/S GOT U/L 13.0 40.0 17 FINAL Arun edward [address] [place] [id number] 0 Phone: () - 02/28 CMP BUN mg/dL 9.0 23.0 34 High FINAL Arun edward [address] [id number] 0 Phone: () - 02/28 CMP Calci um mg/dL 8.7 10.4 10.1 FINAL Arun edward [address] [id number] 0 Phone: () - 02/28 CMP Chlor constance mmol/L 96.0 114.0 106 FINAL Arun edward [address] [id number] 0 Phone: () - 02/28 CMP CO2 mmol/L 20.0 31.0 26 FINAL Arun edward [address] [id number] 0 Phone: () - 02/28 CMP Creat inine mg/dL 0.5 1.2 1.25 High FINAL Arun Garduno [address] [id number] 0 Phone: () - 02/28 CMP GFR estim ate ml/min /1.73m ^2 58.8 Low GFR is calculate d using the CKD-EPI equation. AC edward [address] [phone] 0 Phone: () - 02/28 CMP Gluco se mg/dL 73.0 126.0 105 [facility] Arun edward [address] [id number] 0 Phone: () - 02/28 CMP Potas sium mmol/L 3.5 5.1 4.1 AC edward [address] [id number] 0 Phone: () - 02/28 CMP Sodiu m mmol/L 136.0 145.0 141 AC edward [address] [id number] 0 Phone: () - 02/28 CMP Bilir ubin, total mg/dL 0.3 1.2 0.3 FINAL Arun edward [address] [id number] 0 Phone: () - 02/28 CMP Total prote in g/dL 5.7 8.2 6.8 FINAL Arun edward [address] [id number] 0 Phone: () - 02/28 LDH panel LDH U/L 120.0 246.0 159 FINAL Arun edward [address] [id number] 0 Phone: () - 03/10 Misc other lab See filter press tender head d 03/10 Misc other lab See filter press tender head d 03/21 CBC w/ auto diff WBC K/uL 3.0 8.9 9.9 High FINAL Barbara edward [address] [id number] 0 Phone: () - 03/21 CBC w/ auto diff HGB g/dL 12.5 16.6 9.6 Low FINAL Barbara edward [address] [id number] 0 Phone: () - 03/21 CBC w/ auto diff PLT K/uL 113.0 364.0 270 FINAL Barbara edward [address] [id number] 0 Phone: () - 03/21 CBC w/ auto diff Laisha # (ANC) K/uL 1.6 6.6 7.4 High FINAL Barbara edward [address] [id number] 0 Phone: () - 03/21 CBC w/ auto diff Laisha % % 43.0 74.0 75.1 High FINAL Barbara Justin Garduno a [address] [id number] 0 Phone: () - 03/21 CBC w/ auto diff IG % % 0.0 0.5 0.9 High FINAL Barbara Justin Garduno a [address] [id number] 0 Phone: () - 03/21 CBC w/ auto diff IG # K/uL 0.0 0.03 0.09 High FINAL Barbara [facility] [address] [id number] 0 Phone: () - 03/21 CBC w/ auto diff LY % % 14.0 41.0 7.9 Low FINAL Barbara Clapper [facility] [address] [id number] 0 Phone: () - 03/21 CBC w/ auto diff MO % % 6.0 15.0 12.3 FINAL Barbara Clapper [facility] [address] [phone] 0 Phone: () - 03/21 CBC w/ auto diff EO % % 0.0 7.0 2.0 FINAL Barbara Clapper [facility] [address] [id number] 0 Phone: () - 03/21 CBC w/ auto diff BA % % 0.0 2.0 1.8 FINAL Barbara Paulpper [facility] [address] [id number] 0 Phone: () - 03/21 CBC w/ auto diff LY # K/uL 0.4 3.6 0.8 FINAL Barbara Clapper [facility] [address] [id number] 0 Phone: () - 03/21 CBC w/ auto diff MO # K/uL 0.2 1.3 1.2 FINAL Barbara Clapper [facility] [address] [id number] 0 Phone: () - 03/21 CBC w/ auto diff EO # K/uL 0.0 0.6 0.2 FINAL Barbara Clapper [facility] [address] [id number] 0 Phone: () - 03/21 CBC w/ auto diff BA # K/uL 0.0 0.2 0.2 FINAL Barbara Clapper [facility] [place], [address] [place] [phone] 0 Phone: () - 03/21 CBC w/ auto diff NRBC % #/100W BC 0.0 0.2 0.0 FINAL Barbara edward [address] [id number] 0 Phone: () - 03/21 CBC w/ auto diff RBC M/uL 4.2 5.6 3.15 Low FINAL Barbara edward [address] [id number] 0 Phone: () - 03/21 CBC w/ auto diff HCT % 39.0 49.0 28.6 Low FINAL Barbara ewdard [address] [id number] 0 Phone: () - 03/21 CBC w/ auto diff MCV fL 80.0 104.0 90.8 FINAL Barbara edward [address] [id number] 0 Phone: () - 03/21 CBC w/ auto diff MCH pg 26.0 35.0 30.5 FINAL Barbara edward [address] [id number] 0 Phone: () - 03/21 CBC w/ auto diff MCHC g/dL 30.0 35.0 33.6 FINAL Barbara edward [address] [id number] 0 Phone: () - 03/21 CBC w/ auto diff MPV fL 9.5 13.4 7.9 Low FINAL Barbara edward [address] [place] [phone] 0 Phone: () - 03/21 CBC w/ auto diff RDW % 11.3 15.6 17.40 High FINAL Barbara edward [address] [id number] 0 Phone: () - 03/21 CMP Album in g/dL 3.2 5.2 4.4 FINAL Barbara edward [address] [id number] 0 Phone: () - 03/21 CMP Alkal ine phosp hatas e U/L 46.0 116.0 112 FINAL Barbara edward [address] [id number] 0 Phone: () - 03/21 CMP ALT/S GPT U/L 7.0 40.0 12 FINAL Barbara edward [address] [id number] 0 Phone: () - 03/21 CMP AST/S GOT U/L 13.0 40.0 14 FINAL Barbara edward [address] [id number] 0 Phone: () - 03/21 CMP BUN mg/dL 9.0 23.0 35 High FINAL Barbara edward [address] [id number] 0 Phone: () - 03/21 CMP Calci um mg/dL 8.7 10.4 10.5 High FINAL Barbara edward [address] [id number] 0 Phone: () - 03/21 CMP Chlor constance mmol/L 96.0 114.0 102 FINAL Barbara edward [address] [id number] 0 Phone: () - 03/21 CMP CO2 mmol/L 20.0 31.0 26 FINAL Barbara edward [address] [id number] 0 Phone: () - 03/21 CMP Creat inine mg/dL 0.5 1.2 1.21 High FINAL Barbara edward [address] [id number] 0 Phone: () - 03/21 CMP GFR estim ate ml/min /1.73m ^2 61.1 GFR is calculate d using the CKD-EPI equation. FINAL Barbara edward [address] [phone] 0 Phone: () - 03/21 CMP Gluco se mg/dL 73.0 126.0 107 FINAL Barbara edward [address] [id number] 0 Phone: () - 03/21 CMP Potas sium mmol/L 3.5 5.1 4.3 FINAL Barbara edward [address] [id number] 0 Phone: () - 03/21 CMP Sodiu m mmol/L 136.0 145.0 138 FINAL Barbara Garduno [address] [id number] 0 Phone: () - 03/21 CMP Bilir ubin, total mg/dL 0.3 1.2 0.3 FINAL Barbara edward [address] [id number] 0 Phone: () - 03/21 CMP Total prote in g/dL 5.7 8.2 6.9 FINAL Barbara Garduno [address] [id number] 0 Phone: () - 03/21 LDH panel LDH U/L 120.0 246.0 144 FINAL Barbara edward [address] [id number] 0 Phone: () - 03/28 [facility] [place] lab See filter press tender head d 04/04 Mis other lab See filter press tender head d 04/04 [facility] other lab See filter press tender head d 04/19 CMP Album in g/dL 3.2 5.2 4.4 FINAL Arun Garduno [address] [id number] 0 Phone: () - 04/19 CMP Alkal ine phosp hatas e U/L 46.0 116.0 136 High FINAL Arun Garduno a [address] [id number] 0 Phone: () - 04/19 CMP ALT/S GPT U/L 7.0 40.0 11 FINAL Arun edward [address] [id number] [phone] Phone: () - 04/19 CMP AST/S GOT U/L 13.0 40.0 15 FINAL Arun edward [address] [id number] 0 Phone: () - 04/19 CMP BUN mg/dL 9.0 23.0 40 High FINAL Arun edward [address] [id number] 0 Phone: () - 04/19 CMP Calci um mg/dL 8.7 10.4 10.0 [facility] Arun edward [address] [id number] 0 Phone: () - 04/19 CMP Chlor constance mmol/L 96.0 114.0 104 FINAL Arun edward [address] [id number] 0 Phone: () - 04/19 CMP CO2 mmol/L 20.0 31.0 25 [facility] Arun Garduno [address] [phone] 0 Phone: () - 04/19 CMP Creat inine mg/dL 0.5 1.2 1.29 High FINAL Arun edward [address] [id number] 0 Phone: () - 04/19 CMP GFR estim ate ml/min /1.73m ^2 56.5 Low GFR is calculate d using the CKD-EPI equation. FINAL Arun edward [address] [phone] 0 Phone: () - 04/19 CMP Gluco se mg/dL 73.0 126.0 124 [facility] Arun Garduno [address] [id number] 0 Phone: () - 04/19 CMP Potas sium mmol/L 3.5 5.1 4.2 FINAL Arun edward [address] [id number] 0 Phone: () - 04/19 CMP Sodiu m mmol/L 136.0 145.0 140 FINAL Arun Rider[address] [id number] 0 Phone: () - 04/19 CMP Bilir ubin, total mg/dL 0.3 1.2 0.2 Low FINAL Arun Rider[address] [id number] 0 Phone: () - 04/19 CMP Total prote in g/dL 5.7 8.2 6.6 FINAL Arunjamie Miles [address] [id number] 0 Phone: () - 04/19 CBC w/ auto diff WBC K/uL 3.0 8.9 5.5 FINAL Arun Rider[address] [id number] 0 Phone: () - 04/19 CBC w/ auto diff HGB g/dL 12.5 16.6 9.4 Low FINAL Arun Garduno [address] [id number] 0 Phone: () - 04/19 CBC w/ auto diff PLT K/uL 113.0 364.0 241 FINAL Arun Garduno [address] [id number] 0 Phone: () - 04/19 CBC w/ auto diff Laisha # (ANC) K/uL 1.6 6.6 3.4 FINAL Arun edward [address] [id number] 0 Phone: () - 04/19 CBC w/ auto diff Laisha % % 43.0 74.0 62.5 FINAL Arun Rider[address] [id number] 0 Phone: () - 04/19 CBC w/ auto diff IG % % 0.0 0.5 0.7 High FINAL Arun Garduno a [address] [id number] 0 Phone: () - 04/19 CBC w/ auto diff IG # K/uL 0.0 0.03 0.04 High FINAL Arun Garduno a [address] [id number] 0 Phone: () - 04/19 CBC w/ auto diff LY % % 14.0 41.0 15.5 FINAL Arun edward [address] [id number] 0 Phone: () - 04/19 CBC w/ auto diff MO % % 6.0 15.0 14.0 FINAL Arun edward [address] [id number] 0 Phone: () - 04/19 CBC w/ auto diff EO % % 0.0 7.0 5.5 FINAL Arun Garduno a [address] [id number] 0 Phone: () - 04/19 CBC w/ auto diff BA % % 0.0 2.0 1.8 FINAL Arun Garduno a [address] [id number] 0 Phone: () - 04/19 CBC w/ auto diff LY # K/uL 0.4 3.6 0.9 FINAL Arun Garduno a [address] [id number] 0 Phone: () - 04/19 CBC w/ auto diff MO # K/uL 0.2 1.3 0.8 FINAL Arun Garduno a [address] [id number] 0 Phone: () - 04/19 CBC w/ auto diff EO # K/uL 0.0 0.6 0.3 FINAL Arun Garduno a [address] [place] [id number] 0 Phone: () - 04/19 CBC w/ auto diff BA # K/uL 0.0 0.2 0.1 FINAL Arun edward [address] [id number] 0 Phone: () - 04/19 CBC w/ auto diff NRBC % #/100W BC 0.0 0.2 0.0 FINAL Arun edward [address] [id number] 0 Phone: () - 04/19 CBC w/ auto diff RBC M/uL 4.2 5.6 3.05 Low FINAL Arun edward [address] [id number] 0 Phone: () - 04/19 CBC w/ auto diff HCT % 39.0 49.0 28.9 Low FINAL Arun edward [address] [id number] 0 Phone: () - 04/19 CBC w/ auto diff MCV fL 80.0 104.0 94.8 FINAL Arun edward [address] [id number] 0 Phone: () - 04/19 CBC w/ auto diff MCH pg 26.0 35.0 30.8 FINAL Arun edward [address] [id number] 0 Phone: () - 04/19 CBC w/ auto diff MCHC g/dL 30.0 35.0 32.5 FINAL Arun edward [address] [id number] 0 Phone: () - 04/19 CBC w/ auto diff MPV fL 9.5 13.4 8.0 Low FINAL Arun edward [address] [id number] 0 Phone: () - 04/19 CBC w/ auto diff RDW % 11.3 15.6 17.40 High FINAL Arun Jd Minn[place] [id number] 0 Phone: () - 05/02 Manua l diffe renti al WBC, x 10^3/ uL (M) K/uL 3.0 8.9 7.98 FINAL Arun Miles [address] [phone] 0 Phone: () - 05/02 Manua l diffe renti al Seg % % 43.0 74.0 68.0 FINAL Arun Miles [address] [id number] 0 Phone: () - 05/02 Manua l diffe renti al Lymph ocyte % % 14.0 41.0 13.0 Low FINAL Arun Miles [address] [id number] 0 Phone: () - 05/02 Manua l diffe renti al Monoc yte % % 6.0 15.0 15.0 FINAL Arun Miles [address] [id number] 0 Phone: () - 05/02 Manua l diffe renti al Eosin ophil % % 0.0 7.0 1.0 FINAL Arun Miles [address] [id number] 0 Phone: () - 05/02 Manua l diffe renti al Basop hil % % 0.0 2.0 3.0 High FINAL Arun Miles [address] [id number] 0 Phone: () - 05/02 Manua l diffe renti al ANC (M) K/uL 1.6 6.6 5.4 FINAL Arun Miles [address] [id number] 0 Phone: () - 05/02 Manua l diffe renti al Lymph ocyte , absol christine (M) K/uL 0.4 3.6 1.0 FINAL Arun Miles [place] [address] [id number] 0 Phone: () - 05/02 Manua l diffe renti al MO# (M) K/uL 0.2 1.3 1.2 FINAL Arun Garduno a [address] [id number] 0 Phone: () - 05/02 Manua l diffe renti al EO# (M) K/uL 0.0 0.6 0.1 FINAL Arun Garduno a [address] [id number] 0 Phone: () - 05/02 Manua l diffe renti al Basop hil count (M) K/uL 0.0 0.2 0.2 FINAL Arun Garduno [address] [id number] 0 Phone: () - 05/02 Manua l diffe renti al Plate let estim ate Decreas ed Abnor mal FINAL Arun Garduno [address] [id number] 0 Phone: () - 05/02 Manua l diffe renti al Aniso cytos is (size ) 0.0 0.0 1+ FINAL Arun Garduno [address] [id number] 0 Phone: () - 05/02 Manua l diffe renti al Hypoc hroma ama 0.0 0.0 3+ FINAL Arun Garduno [address] [id number] 0 Phone: () - 05/02 Manua l diffe renti al Manua l Diffe renti al Lab comme nt 0.0 0.0 Consist ent with reporte d results FINAL Arun Garduno a [address] [id number] [phone] Phone: () - 05/02 LDH panel LDH U/L 120.0 246.0 205 FINAL Arun Rider[address] [id number] 0 Phone: () - 07/04 Misc other lab See filter press tender head d 10/30 CBC w/ auto diff WBC K/uL 3.0 8.9 5.8 FINAL Randy edward [address] [id number] 0 Phone: () - 10/30 CBC w/ auto diff HGB g/dL 12.5 16.6 12.7 FINAL Randy Garduno [address] [id number] 0 Phone: () - 10/30 CBC w/ auto diff PLT K/uL 113.0 364.0 192 FINAL Randy Rider[address] [id number] 0 Phone: () - 10/30 CBC w/ auto diff Liasha # (ANC) K/uL 1.6 6.6 3.8 FINAL Randy Garduno [address] [id number] 0 Phone: () - 10/30 CBC w/ auto diff Laisha % % 43.0 74.0 64.8 FINAL Randy Rider[address] [id number] 0 Phone: () - 10/30 CBC w/ auto diff IG % % 0.0 0.5 0.5 FINAL Randy Rider[address] [id number] 0 Phone: () - 10/30 CBC w/ auto diff IG # K/uL 0.0 0.03 0.03 FINAL Randy Garduno [address] [id number] 0 Phone: () - 10/30 CBC w/ auto diff LY % % 14.0 41.0 21.4 FINAL Randy Rider[address] [id number] 0 Phone: () - 10/30 CBC w/ auto diff MO % % 6.0 15.0 8.7 FINAL Randy Rider[address] [place] [phone] 0 Phone: () - 10/30 CBC w/ auto diff EO % % 0.0 7.0 3.6 FINAL Randy edward [address] [id number] 0 Phone: () - 10/30 CBC w/ auto diff BA % % 0.0 2.0 1.0 FINAL Randy edward [address] [id number] 0 Phone: () - 10/30 CBC w/ auto diff LY # K/uL 0.4 3.6 1.3 FINAL Randy edward [address] [id number] 0 Phone: () - 10/30 CBC w/ auto diff MO # K/uL 0.2 1.3 0.5 FINAL Randy Garduno [address] [id number] 0 Phone: () - 10/30 CBC w/ auto diff EO # K/uL 0.0 0.6 0.2 FINAL Randy Garduno [address] [id number] 0 Phone: () - 10/30 CBC w/ auto diff BA # K/uL 0.0 0.2 0.1 FINAL Randy Garduno [address] [id number] 0 Phone: () - 10/30 CBC w/ auto diff NRBC % #/100W BC 0.0 0.2 0.0 FINAL Randy edward [address] [id number] 0 Phone: () - 10/30 CBC w/ auto diff RBC M/uL 4.2 5.6 4.10 Low FINAL Randy edward [address] [id number] 0 Phone: () - 10/30 CBC w/ auto diff HCT % 39.0 49.0 38.0 Low FINAL Randy edward [facility] - [address] [phone] 0 Phone: () - 10/30 CBC w/ auto diff MCV fL 80.0 104.0 92.7 FINAL Randy edward [address] [id number] 0 Phone: () - 10/30 CBC w/ auto diff MCH pg 26.0 35.0 31.0 FINAL Randy edward [address] [phone] 0 Phone: () - 10/30 CBC w/ auto diff MCHC g/dL 30.0 35.0 33.4 FINAL Randy edward [address] [id number] 0 Phone: () - 10/30 CBC w/ auto diff MPV fL 9.5 13.4 8.4 Low FINAL Randy edward [address] [id number] 0 Phone: () - 10/30 CBC w/ auto diff RDW % 11.3 15.6 14.20 FINAL Randy edward [address] [id number] 0 Phone: () - 10/30 CMP Album in g/dL 3.2 5.2 4.7 FINAL Randy edward [address] [id number] 0 Phone: () - 10/30 CMP Alkal ine phosp hatas e U/L 46.0 116.0 119 High FINAL Randy edward [address] [place] [phone] 0 Phone: () - 10/30 CMP ALT/S GPT U/L 7.0 40.0 21 FINAL Randy edward [address] [id number] 0 Phone: () - 10/30 CMP AST/S GOT U/L 13.0 40.0 19 FINAL Randy edward [address] [place] [phone] 0 Phone: () - 10/30 CMP BUN mg/dL 9.0 23.0 40 High FINAL Randy Garduno [address] [id number] 0 Phone: () - 10/30 CMP Calci um mg/dL 8.7 10.4 10.7 High FINAL Randy Rider[address] [id number] 0 Phone: () - 10/30 CMP Chlor constance mmol/L 96.0 114.0 106 FINAL Randy Rider[address] [id number] 0 Phone: () - 10/30 CMP CO2 mmol/L 20.0 31.0 30 FINAL Randy Rider[address] [id number] 0 Phone: () - 10/30 CMP Creat inine mg/dL 0.5 1.2 1.41 High FINAL Randy Rider[address] [id number] 0 Phone: () - 10/30 CMP GFR estim ate ml/min /1.73m ^2 50.6 Low GFR is calculate d using the CKD-EPI equation. FINAL Randy Rider[address] [id number] 0 Phone: () - 10/30 CMP Gluco se mg/dL 73.0 126.0 101 FINAL Randy Rider[address] [id number] 0 Phone: () - 10/30 CMP Potas sium mmol/L 3.5 5.1 4.7 FINAL Randy Arriaga [address] [id number] 0 Phone: () - 10/30 CMP Sodiu m mmol/L 136.0 145.0 141 [facility] Randy Rider[address] [phone] 0 Phone: () - 10/30 CMP Bilir ubin, total mg/dL 0.3 1.2 0.3 FINAL Randy edward [address] [id number] 0 Phone: () - 10/30 CMP Total prote in g/dL 5.7 8.2 7.0 FINAL Randy edward [address] [id number] 0 Phone: () - 10/30 LDH panel LDH U/L 120.0 246.0 180 FINAL Randy Garduno [address] [id number] 0 Phone: () - 03/04 LDH panel LDH U/L 120.0 246.0 205 FINAL Randy edward [address] [id number] 0 Phone: () - 03/04 CBC w/ auto diff WBC K/uL 3.0 8.9 5.5 FINAL Randy edward [address] [phone] 0 Phone: () - 03/04 CBC w/ auto diff HGB g/dL 12.5 16.6 13.0 FINAL Randy edward [address] [id number] 0 Phone: () - 03/04 CBC w/ auto diff PLT K/uL 113.0 364.0 218 FINAL Randy Rider[address] [id number] 0 Phone: () - 03/04 CBC w/ auto diff Laisha # (ANC) K/uL 1.6 6.6 3.8 FINAL Randy edward [address] [phone] 0 Phone: () - 03/04 CBC w/ auto diff Laisha % % 43.0 74.0 68.3 FINAL Randy edward [address] [id number] 0 Phone: () - 03/04 CBC w/ auto diff IG % % 0.0 0.5 0.4 FINAL Randy Ducker [place] [address] [phone] 0 Phone: () - 03/04 CBC w/ auto diff IG # K/uL 0.0 0.03 0.02 FINAL Randy edward [address] [id number] 0 Phone: () - 03/04 CBC w/ auto diff LY % % 14.0 41.0 17.3 FINAL Randy edward [address] [id number] 0 Phone: () - 03/04 CBC w/ auto diff MO % % 6.0 15.0 8.8 FINAL Randy edward [address] [id number] 0 Phone: () - 03/04 CBC w/ auto diff EO % % 0.0 7.0 3.8 FINAL Randy edward [address] [id number] 0 Phone: () - 03/04 CBC w/ auto diff BA % % 0.0 2.0 1.4 FINAL Randy edward [address] [id number] 0 Phone: () - 03/04 CBC w/ auto diff LY # K/uL 0.4 3.6 1.0 FINAL Randy edward [address] [id number] 0 Phone: () - 03/04 CBC w/ auto diff MO # K/uL 0.2 1.3 0.5 FINAL Randy edward [address] [phone] 0 Phone: () - 03/04 CBC w/ auto diff EO # K/uL 0.0 0.6 0.2 FINAL Randy edward [address] [phone] 0 Phone: () - 03/04 CBC w/ auto diff BA # K/uL 0.0 0.2 0.1 FINAL Randy edward [address] [phone] 0 Phone: () - 03/04 CBC w/ auto diff NRBC % #/100W BC 0.0 0.2 0.0 FINAL Randy edward [address] [id number] 0 Phone: () - 03/04 CBC w/ auto diff RBC M/uL 4.2 5.6 4.20 FINAL Randy edward [address] [phone] 0 Phone: () - 03/04 CBC w/ auto diff HCT % 39.0 49.0 39.6 FINAL Randy edward [address] [phone] 0 Phone: () - 03/04 CBC w/ auto diff MCV fL 80.0 104.0 94.3 FINAL Randy edward [address] [phone] 0 Phone: () - 03/04 CBC w/ auto diff MCH pg 26.0 35.0 31.0 FINAL Randy edward [address] [phone] Phone: () - 03/04 CBC w/ auto diff MCHC g/dL 30.0 35.0 32.8 FINAL Randy edward [address] [phone] 0 Phone: () - 03/04 CBC w/ auto diff MPV fL 9.5 13.4 8.4 Low FINAL Randy edward [address] [id number] 0 Phone: () - 03/04 CBC w/ auto diff RDW % 11.3 15.6 12.60 FINAL Randy edward [address] [id number] 0 Phone: () - 03/04 CMP ALT/S GPT U/L 7.0 40.0 34 FINAL Randy Garduno [address] [id number] 0 Phone: () - 03/04 CMP AST/S GOT U/L 13.0 40.0 28 FINAL Randy Garduno [address] [id number] 0 Phone: () - 03/04 CMP BUN mg/dL 9.0 23.0 28 High FINAL Randy Rider[address] [id number] 0 Phone: () - 03/04 CMP Calci um mg/dL 8.7 10.4 9.9 FINAL Randy Rider[address] [id number] 0 Phone: () - 03/04 CMP Chlor constance mmol/L 96.0 114.0 104 FINAL Randy Rider[address] [id number] 0 Phone: () - 03/04 CMP CO2 mmol/L 20.0 31.0 28 FINAL Randy Rider[address] [id number] 0 Phone: () - 03/04 CMP Creat inine mg/dL 0.5 1.2 1.27 High FINAL Randy Garduno [address] [id number] 0 Phone: () - 03/04 CMP GFR estim ate ml/min /1.73m ^2 57.2 Low GFR is calculate d using the CKD-EPI equation. FINAL Randy Garduno [address] [id number] 0 Phone: () - 03/04 CMP Gluco se mg/dL 73.0 126.0 99 FINAL Randy Rider[address] [id number] 0 Phone: () - 03/04 CMP Potas sium mmol/L 3.5 5.1 4.4 FINAL Randy Rider[address] [id number] 0 Phone: () - 03/04 CMP Sodiu m mmol/L 136.0 145.0 138 FINAL Randy Garduno [address] [id number] 0 Phone: () - 03/04 CMP Bilir ubin, total mg/dL 0.3 1.2 0.3 FINAL Randy edward [address] [id number] 0 Phone: () - 03/04 CMP Total prote in g/dL 5.7 8.2 7.2 FINAL Randy Rider[address] [id number] 0 Phone: () - 03/04 CMP Album in g/dL 3.2 5.2 5.0 FINAL Randy Rider[address] [id number] 0 Phone: () - 03/04 CMP Alkal ine phosp hatas e U/L 46.0 116.0 118 High FINAL Randy Rider[address] [id number] 0 Phone: () - 06/05 CBC w/ auto diff WBC K/uL 3.0 8.9 7.0 FINAL Randy Rider[address] [id number] 0 Phone: () - 06/05 CBC w/ auto diff HGB g/dL 12.5 16.6 13.2 FINAL Randy Rider[address] [id number] 0 Phone: () - 06/05 CBC w/ auto diff PLT K/uL 113.0 364.0 245 FINAL Randy Rider[address] [id number] 0 Phone: () - 06/05 CBC w/ auto diff Laisha # (ANC) K/uL 1.6 6.6 4.8 FINAL Randy Rider[address] [id number] 0 Phone: () - 06/05 CBC w/ auto diff Laisha % % 43.0 74.0 69.2 FINAL Randy edward [facility] [address] [id number] 0 Phone: () - 06/05 CBC w/ auto diff IG % % 0.0 0.5 0.4 FINAL Randy edward [address] [id number] 0 Phone: () - 06/05 CBC w/ auto diff IG # K/uL 0.0 0.03 0.03 FINAL Randy edward [address] [id number] 0 Phone: () - 06/05 CBC w/ auto diff LY % % 14.0 41.0 15.9 FINAL Randy Garduno [address] [id number] 0 Phone: () - 06/05 CBC w/ auto diff MO % % 6.0 15.0 9.2 FINAL Randy Garduno [address] [id number] 0 Phone: () - 06/05 CBC w/ auto diff EO % % 0.0 7.0 3.9 FINAL Randy edward [address] [id number] 0 Phone: () - 06/05 CBC w/ auto diff BA % % 0.0 2.0 1.4 FINAL Randy edward [address] [id number] 0 Phone: () - 06/05 CBC w/ auto diff LY # K/uL 0.4 3.6 1.1 FINAL Randy edward [address] [id number] 0 Phone: () - 06/05 CBC w/ auto diff MO # K/uL 0.2 1.3 0.6 FINAL Randy Garduno [address] [id number] 0 Phone: () - 06/05 CBC w/ auto diff EO # K/uL 0.0 0.6 0.3 FINAL Randy Rider[address] [id number] 0 Phone: () - 06/05 CBC w/ auto diff BA # K/uL 0.0 0.2 0.1 FINAL Randy Garduno [address] [id number] 0 Phone: () - 06/05 CBC w/ auto diff NRBC % #/100W BC 0.0 0.2 0.0 FINAL Randy Garduno [address] [id number] 0 Phone: () - 06/05 CBC w/ auto diff RBC M/uL 4.2 5.6 4.21 FINAL Randy Garduno [address] [id number] 0 Phone: () - 06/05 CBC w/ auto diff HCT % 39.0 49.0 38.8 Low FINAL Randy Rider[address] [id number] 0 Phone: () - 06/05 CBC w/ auto diff MCV fL 80.0 104.0 92.2 FINAL Randy Garduno [address] [id number] 0 Phone: () - 06/05 CBC w/ auto diff MCH pg 26.0 35.0 31.4 FINAL Randy Garduno [address] [id number] 0 Phone: () - 06/05 CBC w/ auto diff MCHC g/dL 30.0 35.0 34.0 FINAL Randy Rider[address] [id number] 0 Phone: () - 06/05 CBC w/ auto diff MPV fL 9.5 13.4 8.1 Low FINAL Randy Rider[address] [id number] 0 Phone: () - 06/05 CBC w/ auto diff RDW % 11.3 15.6 12.70 FINAL Randy edward [address] [id number] 0 Phone: () - 06/05 CMP Album in g/dL 3.2 5.2 4.8 FINAL Randy edward [address] [id number] 0 Phone: () - 06/05 CMP Alkal ine phosp hatas e U/L 46.0 116.0 139 High FINAL Randy edward [address] [id number] 0 Phone: () - 06/05 CMP ALT/S GPT U/L 7.0 40.0 27 FINAL Randy edward [address] [id number] 0 Phone: () - 06/05 CMP AST/S GOT U/L 13.0 40.0 24 FINAL Randy edward [address] [id number] 0 Phone: () - 06/05 CMP BUN mg/dL 9.0 23.0 29 High FINAL Randy edward [address] [id number] 0 Phone: () - 06/05 CMP Calci um mg/dL 8.7 10.4 10.1 FINAL Randy edward [address] [id number] 0 Phone: () - 06/05 CMP Chlor constance mmol/L 96.0 114.0 106 FINAL Randy edward [address] [id number] 0 Phone: () - 06/05 CMP CO2 mmol/L 20.0 31.0 28 FINAL Randy edward [address] [id number] 0 Phone: () - 06/05 CMP Creat inine mg/dL 0.5 1.2 1.47 High FINAL Randy edward [address] [id number] 0 Phone: () - 06/05 CMP GFR estim ate ml/min /1.73m ^2 47.9 Low GFR is calculate d using the CKD-EPI equation. FINAL Randy edward [address] [id number] 0 Phone: () - 06/05 CMP Gluco se mg/dL 73.0 126.0 96 FINAL Randy edward [address] [id number] 0 Phone: () - 06/05 CMP Potas sium mmol/L 3.5 5.1 4.6 FINAL Randy edward [address] [id number] 0 Phone: () - 06/05 CMP Sodiu m mmol/L 136.0 145.0 138 FINAL Randy edward [address] [id number] 0 Phone: () - 06/05 CMP Bilir ubin, total mg/dL 0.3 1.2 0.3 FINAL Randy edward [address] [id number] 0 Phone: () - 06/05 CMP Total prote in g/dL 5.7 8.2 7.4 AC edward [address] [id number] 0 Phone: () - 06/06 LDH panel LDH IU/L 125.0 220.0 170 Test Performed by:[employer] [facility] [address], [address] - [facility] [place], [place] [address]Flkd e [phone] AC Arriaga 07/02 [facility] [place] lab See attache ojeda 10/03 CBC w/ auto diff WBC K/uL 3.0 8.9 5.4 AC edward [address] [id number] 0 Phone: () - 10/03 CBC w/ auto diff HGB g/dL 12.5 16.6 10.9 Low FINAL Randy edward [address] [id number] 0 Phone: () - 10/03 CBC w/ auto diff PLT K/uL 113.0 364.0 197 FINAL Randy edward [address] [id number] 0 Phone: () - 10/03 CBC w/ auto diff Laisha # (ANC) K/uL 1.6 6.6 3.6 FINAL Randy edward [address] [id number] 0 Phone: () - 10/03 CBC w/ auto diff Laisha % % 43.0 74.0 67.0 FINAL Randy edward [address] [id number] 0 Phone: () - 10/03 CBC w/ auto diff IG % % 0.0 0.5 0.9 High FINAL Randy edward [address] [id number] 0 Phone: () - 10/03 CBC w/ auto diff IG # K/uL 0.0 0.03 0.05 High FINAL Randy edward [address] [id number] 0 Phone: () - 10/03 CBC w/ auto diff LY % % 14.0 41.0 19.4 FINAL Randy edward [address] [id number] 0 Phone: () - 10/03 CBC w/ auto diff MO % % 6.0 15.0 8.8 FINAL Randy edward [address] [id number] 0 Phone: () - 10/03 CBC w/ auto diff EO % % 0.0 7.0 2.6 FINAL Randy edward [address] [id number] 0 Phone: () - 10/03 CBC w/ auto diff BA % % 0.0 2.0 1.3 FINAL Randy edward [address] [id number] 0 Phone: () - 10/03 CBC w/ auto diff LY # K/uL 0.4 3.6 1.0 FINAL Randy edward [address] [id number] 0 Phone: () - 10/03 CBC w/ auto diff MO # K/uL 0.2 1.3 0.5 FINAL Randy Garduno [address] [id number] 0 Phone: () - 10/03 CBC w/ auto diff EO # K/uL 0.0 0.6 0.1 FINAL Randy Rider[address] [id number] 0 Phone: () - 10/03 CBC w/ auto diff BA # K/uL 0.0 0.2 0.1 FINAL Randy Rider[address] [id number] 0 Phone: () - 10/03 CBC w/ auto diff NRBC % #/100W BC 0.0 0.2 0.0 FINAL Randy Garduno [address] [id number] 0 Phone: () - 10/03 CBC w/ auto diff RBC M/uL 4.2 5.6 3.46 Low FINAL Randy Garduno [address] [id number] 0 Phone: () - 10/03 CBC w/ auto diff HCT % 39.0 49.0 32.5 Low FINAL Randy edward [address] [id number] 0 Phone: () - 10/03 CBC w/ auto diff MCV fL 80.0 104.0 93.9 FINAL Radny Rider[address] [id number] 0 Phone: () - 10/03 CBC w/ auto diff MCH pg 26.0 35.0 31.5 FINAL Randy edward [address] [id number] 0 Phone: () - 10/03 CBC w/ auto diff MCHC g/dL 30.0 35.0 33.5 FINAL Randy edward [address] [id number] 0 Phone: () - 10/03 CBC w/ auto diff MPV fL 9.5 13.4 8.4 Low FINAL Randy Rider cheyanne [address] [id number] 0 Phone: () - 10/03 CBC w/ auto diff RDW % 11.3 15.6 13.60 FINAL Randy edward [address] [id number] 0 Phone: () - 10/03 LDH panel LDH U/L 120.0 246.0 180 FINAL Randy Rider[address] [id number] 0 Phone: () - 10/03 CMP Album in g/dL 3.2 5.2 4.2 FINAL Randy edward [address] [id number] 0 Phone: () - 10/03 CMP Alkal ine phosp hatas e U/L 46.0 116.0 99 FINAL Randy Rider[address] [id number] 0 Phone: () - 10/03 CMP ALT/S GPT U/L 7.0 40.0 24 FINAL Randy Garduno [address] [id number] 0 Phone: () - 10/03 CMP AST/S GOT U/L 13.0 40.0 21 FINAL Randy Rider[address] [id number] 0 Phone: () - 10/03 CMP BUN mg/dL 9.0 23.0 26 High FINAL Randy Garduno [address] [id number] 0 Phone: () - 10/03 CMP Calci um mg/dL 8.7 10.4 9.5 FINAL Randy Rider[address] [id number] 0 Phone: () - 10/03 CMP Chlor constance mmol/L 96.0 114.0 109 FINAL Randy Rider[address] [id number] 0 Phone: () - 10/03 CMP CO2 mmol/L 20.0 31.0 27 FINAL Randy Rider[address] [id number] 0 Phone: () - 10/03 CMP Creat inine mg/dL 0.5 1.2 1.20 FINAL Ranyd Garduno [address] [id number] 0 Phone: () - 10/03 CMP GFR estim ate ml/min /1.73m ^2 61.1 GFR is calculate d using the CKD-EPI equation. FINAL Randy Rider[address] [id number] 0 Phone: () - 10/03 CMP Gluco se mg/dL 73.0 126.0 93 FINAL Randy Garduno [address] [id number] 0 Phone: () - 10/03 CMP Potas sium mmol/L 3.5 5.1 4.8 FINAL Randy Rider[address] [id number] 0 Phone: () - 10/03 CMP Sodiu m mmol/L 136.0 145.0 139 FINAL Randy Rider[address] [id number] 0 Phone: () - 10/03 CMP Bilir ubin, total mg/dL 0.3 1.2 0.2 Low FINAL Randy edward [facility], [address] [facility] [address] [facility] [id number] 0 Phone: () - 10/03 CMP Total prote in g/dL 5.7 8.2 6.7 FINAL Randy edward [facility], [address] [facility] [address] [facility] [id number] 0 Phone: () - 11/06 Misc other lab See filter press tender head d 04/06 LDH panel LDH U/L 120.0 246.0 189 FINAL Randy Garduno [facility], [address] [facility] [address] [place] [address] [id number] 0 Phone: () - 04/06 CMP Album in g/dL 3.2 5.2 4.5 FINAL Randy edward [facility], [address] [facility] [address] [place] [address] [id number] 0 Phone: () - 04/06 CMP Alkal ine phosp hatas e U/L 46.0 116.0 118 High FINAL Randy edward [facility], [address] [facility] [address] [place] [address] [id number] 0 Phone: () - 04/06 CMP ALT/S GPT U/L 7.0 40.0 21 [facility] [address] [facility] [address] [place] [address] [id number] 0 Phone: () - 04/06 CMP AST/S GOT U/L 13.0 40.0 20 FINAL Randy edward [facility], [address] [facility] [address] [place] [address] [id number] 0 Phone: () - 04/06 CMP BUN mg/dL 9.0 23.0 30 High [facility], [facility] [address] [facility] [address] [place] [address] [id number] 0 Phone: () - 04/06 CMP Calci um mg/dL 8.7 10.4 10.8 High FINAL [facility], [facility] [address] [facility] [address] [place] [address] [id number] 0 Phone: () - 04/06 CMP Chlor constance mmol/L 96.0 114.0 107 FINAL Randy Garduno [place] [address] [id number] 0 Phone: () - 04/06 CMP CO2 [...] 96 hour stability window. FINAL Randy edward [place] [address] [id number] 0 Phone: () - 04/06 CMP Creat inine mg/dL 0.5 1.2 1.21 High FINAL [place] [address] [id number] 0 Phone: () - 04/06 CMP GFR estim ate ml/min /1.73m ^2 60.2 GFR is calculate d using the CKD-EPI equation. FINAL Randy edward [place] [address] [id number] 0 Phone: () - 04/06 CMP Gluco se mg/dL 73.0 126.0 101 FINAL Randy Garduno [place] [address] [id number] 0 Phone: () - 04/06 CMP Potas sium mmol/L 3.5 5.1 4.8 FINAL Randy edward [place] [address] [id number] 0 Phone: () - 04/06 CMP Sodiu m mmol/L 136.0 145.0 139 FINAL Randy edward [place] [address] [id number] 0 Phone: () - 04/06 CMP Bilir ubin, total mg/dL 0.3 1.2 0.3 FINAL Randy Garduno [place] [address] [id number] 0 Phone: () - 04/06 CMP Total prote in g/dL 5.7 8.2 7.2 FINAL Randy edward [place] [address] [id number] 0 Phone: () - 04/06 CBC w/ auto diff WBC K/uL 3.0 8.9 6.2 FINAL Randy edward [place] [address] [id number] 0 Phone: () - 04/06 CBC w/ auto diff HGB g/dL 12.5 16.6 12.5 FINAL Randy edward [place] [address] [id number] 0 Phone: () - 04/06 CBC w/ auto diff PLT K/uL 113.0 364.0 238 FINAL Rnady Garduno [place] [address] [id number] 0 Phone: () - 04/06 CBC w/ auto diff Laisha # (ANC) K/uL 1.6 6.6 4.5 FINAL Randy edward [place] [address] [id number] 0 Phone: () - 04/06 CBC w/ auto diff Laisha % % 43.0 74.0 73.4 AC edward [place] [address] [id number] 0 Phone: () - 04/06 CBC w/ auto diff IG % % 0.0 0.5 0.3 FINAL Randy edward [place] [address] [id number] 0 Phone: () - 04/06 CBC w/ auto diff IG # K/uL 0.0 0.03 0.02 AC edward [place] [address] [id number] 0 Phone: () - 04/06 CBC w/ auto diff LY % % 14.0 41.0 14.6 FINAL Randy edward [facility], [address] [facility] [address] [place] [address] [id number] 0 Phone: () - 04/06 CBC w/ auto diff MO % % 6.0 15.0 8.3 FINAL Randy edward [facility], [address] [facility] [address] [id number] 0 Phone: () - 04/06 CBC w/ auto diff EO % % 0.0 7.0 2.3 FINAL Randy edward [facility], [address] [id number] 0 Phone: () - 04/06 CBC w/ auto diff BA % % 0.0 2.0 1.1 FINAL Randy edward [facility], [address] [id number] 0 Phone: () - 04/06 CBC w/ auto diff LY # K/uL 0.4 3.6 0.9 FINAL Randy edward [facility], [address] [id number] 0 Phone: () - 04/06 CBC w/ auto diff MO # K/uL 0.2 1.3 0.5 FINAL Randy edward [facility], [address] [id number] 0 Phone: () - 04/06 CBC w/ auto diff EO # K/uL 0.0 0.6 0.1 FINAL Randy edward [facility], [address] [id number] 0 Phone: () - 04/06 CBC w/ auto diff BA # K/uL 0.0 0.2 0.1 FINAL Randy edward [facility], [address] [facility] [address] [id number] 0 Phone: () - 04/06 CBC w/ auto diff NRBC % #/100W BC 0.0 0.2 0.0 FINAL Randy edward [facility], [address] [facility] [address] [id number] 0 Phone: () - 04/06 CBC w/ auto diff RBC M/uL 4.2 5.6 3.96 Low FINAL Randy edward [facility] [address] [facility] [address] [id number] 0 Phone: () - 04/06 CBC w/ auto diff HCT % 39.0 49.0 37.3 Low FINAL Randy edward [facility] [address] [facility] [address] [id number] 0 Phone: () - 04/06 CBC w/ auto diff MCV fL 80.0 104.0 94.2 FINAL Randy edward [facility] [address] [facility] [address] [id number] 0 Phone: () - 04/06 CBC w/ auto diff MCH pg 26.0 35.0 31.6 FINAL Randy edward [facility] [address] [facility] [address] [id number] 0 Phone: () - 04/06 CBC w/ auto diff MCHC g/dL 30.0 35.0 33.5 FINAL Randy edward [facility] [address] [id number] 0 Phone: () - 04/06 CBC w/ auto diff MPV fL 9.5 13.4 8.5 Low FINAL Randy edward [facility] [address] [id number] 0 Phone: () - 04/06 CBC w/ auto diff RDW % 11.3 15.6 13.20 FINAL Randy edward [place] [address] [id number] 0 Phone: () - 09/24 CMP Album in g/dL 3.2 5.2 4.4 FINAL Randy edward [place] [address] [id number] 0 Phone: () - 09/24 CMP Alkal ine phosp hatas e U/L 46.0 116.0 105 FINAL Randy edward [place] [address] [address] [facility] [address] [id number] 0 Phone: () - 09/24 CMP ALT/S GPT U/L 7.0 40.0 25 FINAL Randy edward [place] [address] [address] [facility] [address] [id number] 0 Phone: () - 09/24 CMP AST/S GOT U/L 13.0 40.0 20 FINAL Randy edward [place] [address] [address] [facility] [address] [id number] 0 Phone: () - 09/24 CMP BUN mg/dL 9.0 23.0 23 FINAL Randy edward [place] [address] [address] [facility] [address] [id number] 0 Phone: () - 09/24 CMP Calci um mg/dL 8.7 10.4 10.2 FINAL Randy edward [place] [address] [id number] 0 Phone: () - 09/24 CMP Chlor constance mmol/L 96.0 114.0 107 FINAL aRndy Garduno [place] [address] [address] [facility] [address] [id number] 0 Phone: () - 09/24 CMP CO2 [...] 96 hour stability window. FINAL Randy edward [facility], [facility] [address] [id number] 0 Phone: () - 09/24 CMP Creat inine mg/dL 0.5 1.2 1.41 High FINAL [place] [address] [id number] 0 Phone: () - 09/24 CMP GFR estim ate ml/min /1.73m ^2 53.4 Low GFR is calculate d using the CKD-EPI equation. FINAL Randy Garduno [place] [address] [id number] 0 Phone: () - 09/24 CMP Gluco se mg/dL 73.0 126.0 104 FINAL [place] [address] [id number] 0 Phone: () - 09/24 CMP Potas sium mmol/L 3.5 5.1 4.8 FINAL [place] [address] [id number] 0 Phone: () - 09/24 CMP Sodiu m mmol/L 136.0 145.0 139 FINAL [place] [address] [id number] 0 Phone: () - 09/24 CMP Bilir ubin, total mg/dL 0.3 1.2 0.3 FINAL [place] [address] [id number] 0 Phone: () - 09/24 CMP Total prote in g/dL 5.7 8.2 7.0 FINAL [place] [address] [id number] 0 Phone: () - 09/24 LDH panel LDH U/L 120.0 246.0 175 FINAL [place] [address] [id number] 0 Phone: () - 09/24 CBC w/ auto diff WBC K/uL 3.0 8.9 6.0 FINAL [place] [address] [id number] 0 Phone: () - 09/24 CBC w/ auto diff HGB g/dL 12.5 16.6 12.7 FINAL [place] [address] [id number] 0 Phone: () - 09/24 CBC w/ auto diff PLT K/uL 113.0 364.0 229 FINAL Randy Arriaga [place] [address] [id number] 0 Phone: () - 09/24 CBC w/ auto diff Laisha # (ANC) K/uL 1.6 6.6 4.1 FINAL Randy edward [facility], [address] [id number] 0 Phone: () - 09/24 CBC w/ auto diff Laisha % % 43.0 74.0 69.5 FINAL Randy edward [facility], [address] [id number] 0 Phone: () - 09/24 CBC w/ auto diff IG % % 0.0 0.5 0.5 FINAL Randy edward [facility], [address] [id number] 0 Phone: () - 09/24 CBC w/ auto diff IG # K/uL 0.0 0.03 0.03 FINAL Randy edward [facility], [address] [id number] 0 Phone: () - 09/24 CBC w/ auto diff LY % % 14.0 41.0 18.3 FINAL Randy edward [facility], [address] [id number] 0 Phone: () - 09/24 CBC w/ auto diff MO % % 6.0 15.0 8.2 FINAL Randy edward [facility], [address] [id number] 0 Phone: () - 09/24 CBC w/ auto diff EO % % 0.0 7.0 2.2 FINAL Randy edward [facility], [address] [id number] 0 Phone: () - 09/24 CBC w/ auto diff BA % % 0.0 2.0 1.3 FINAL Randy edward [facility], [address] [id number] 0 Phone: () - 09/24 CBC w/ auto diff LY # K/uL 0.4 3.6 1.1 FINAL Randy edward [facility], [address] [facility] [address] [id number] 0 Phone: () - 09/24 CBC w/ auto diff MO # K/uL 0.2 1.3 0.5 FINAL Radny edward [facility] [address] [id number] 0 Phone: () - 09/24 CBC w/ auto diff EO # K/uL 0.0 0.6 0.1 FINAL Randy edward [facility] [address] [id number] 0 Phone: () - 09/24 CBC w/ auto diff BA # K/uL 0.0 0.2 0.1 FINAL Randy edward [facility] [address] [id number] 0 Phone: () - 09/24 CBC w/ auto diff NRBC % #/100W BC 0.0 0.2 0.0 FINAL Randy Garduno [facility], [address] [id number] 0 Phone: () - 09/24 CBC w/ auto diff RBC M/uL 4.2 5.6 4.07 Low FINAL Randy Garduno [facility] [address] [id number] 0 Phone: () - 09/24 CBC w/ auto diff HCT % 39.0 49.0 37.3 Low FINAL Randy Garduno [place] [address] [id number] 0 Phone: () - 09/24 CBC w/ auto diff MCV fL 80.0 104.0 91.6 FINAL [place] [address] [id number] 0 Phone: () - 09/24 CBC w/ auto diff MCH pg 26.0 35.0 31.2 FINAL Randy edward [facility] [address] [id number] 0 Phone: () - 09/24 CBC w/ auto diff MCHC g/dL 30.0 35.0 34.0 FINAL Randy edward [facility], [address] [facility] [address] [facility] [id number] 0 Phone: () - 09/24 CBC w/ auto diff MPV fL 9.5 13.4 8.5 Low FINAL Randy edward [facility], [address] [facility] [address] [facility] [id number] 0 Phone: () - 09/24 CBC w/ auto diff RDW % 11.3 15.6 12.90 FINAL [facility], [address] [facility] [address] [facility] [id number] 0 Phone: () - 01/12 Mis other lab See filter press tender head d 11/11 Mis other lab See filter press tender head d 11/18 Misc other lab See filter press tender head d 12/09 LDH panel LDH U/L 120.0 246.0 224 FINAL Augustus Jain [place] [address] [address] [facility] [address] [id number] 0 Phone: () - 12/09 CMP Album in g/dL 3.2 5.2 4.2 FINAL [facility] [place] [address] [id number] 0 Phone: () - 12/09 CMP Alkal ine phosp hatas e U/L 46.0 116.0 84 FINAL [facility], [facility] [address] [id number] 0 Phone: () - 12/09 CMP ALT/S GPT U/L 7.0 40.0 28 FINAL [facility] [place] [address] [address] [facility] [address] [id number] 0 Phone: () - 12/09 CMP AST/S GOT U/L 13.0 40.0 25 FINAL [facility], [address] [id number] 0 Phone: () - 12/09 CMP BUN mg/dL 9.0 23.0 21.0 FINAL [place] [address] [id number] 0 Phone: () - 12/09 CMP Calci um mg/dL 8.7 10.4 9.3 FINAL [place] [address] [id number] 0 Phone: () - 12/09 CMP Chlor constance mmol/L 96.0 114.0 105 FINAL Augustus Jain [place] [address] [id number] 0 Phone: () - 12/09 CMP CO2 [...] of the 96 hour stability window. FINAL Augustus Jain [place] [address] [id number] 0 Phone: () - 12/09 CMP Creat inine mg/dL 0.5 1.2 2.02 High FINAL [facility] [place] [address] [id number] 0 Phone: () - 12/09 CMP GFR estim ate ml/min /1.73m ^2 34.4 Low GFR is calculate d using the CKD-EPI equation. FINAL Augustus [facility] [place] [address] [id number] 0 Phone: () - 12/09 CMP Gluco se mg/dL 73.0 126.0 97 [facility] [place] [address] [id number] [phone] Phone: () - 12/09 CMP Potas sium mmol/L 3.5 5.1 4.8 [place] [address] [place] [phone] Phone: () - 12/09 CMP Sodiu m mmol/L 136.0 145.0 139 FINAL [facility], [address] [facility] [address] [place] [phone] Phone: () - 12/09 CMP Bilir ubin, total mg/dL 0.3 1.2 0.2 Low FINAL [facility] [place] [facility], [address] [facility] [address] [place] [phone] 0 Phone: () - 12/09 CMP Total prote in g/dL 5.7 8.2 6.7 FINAL Augustus [facility], [address] [facility] [address] [place] [phone] Phone: () - 12/09 CBC w/ auto diff WBC K/uL 3.0 8.9 6.2 FINAL Augustus Edu edwadr [facility] - [place], [address] [place] [address] [place] [address] [phone] Phone: () - 12/09 CBC w/ auto diff HGB g/dL 12.5 16.6 12.2 Low FINAL Augustus Edu Garduno a [facility] - [place], [address] [place] [address] [place] [address] [phone] Phone: () - 12/09 CBC w/ auto diff PLT K/uL 113.0 364.0 210 FINAL Augustus Edu Gard[facility] - [place], [address] [place] [address] [place] [phone] Phone: () - 12/09 CBC w/ auto diff Laisha # (ANC) K/uL 1.6 6.6 4.1 FINAL Augustus Edu Garduno [facility] - [place], [address] [place] [address] d [address] [place] [phone] Phone: () - 12/09 CBC w/ auto diff Laisha % % 43.0 74.0 66.5 FINAL Augustus Edu Gard[facility] - [place], [address] [place] [phone] 0 Phone: () - 12/09 CBC w/ auto diff IG % % 0.0 0.5 0.3 FINAL Augustus Garduno a [facility] - [place], [address] [place] [phone] 0 Phone: () - 12/09 CBC w/ auto diff IG # K/uL 0.0 0.03 0.02 FINAL Augustus Riderot [facility] - [place], [address] [place] [phone] 0 Phone: () - 12/09 CBC w/ auto diff LY % % 14.0 41.0 19.6 FINAL [place] R[facility]ot [facility] - [place], [address] [place] [phone] 0 Phone: () - 12/09 CBC w/ auto diff MO % % 6.0 15.0 9.5 FINAL [place] [facility] - [place], [address] [place] [phone] 0 Phone: () - 12/09 CBC w/ auto diff EO % % 0.0 7.0 2.7 FINAL Augustus Garduno [facility] - [place], [address] [place] [phone] 0 Phone: () - 12/09 CBC w/ auto diff BA % % 0.0 2.0 1.4 FINAL Augustus Garduno [facility] - [place], [address] [place] [phone] 0 Phone: () - 12/09 CBC w/ auto diff LY # K/uL 0.4 3.6 1.2 FINAL Augustus Garduno [facility] - [place], [address] [place] [phone] 0 Phone: () - 12/09 CBC w/ auto diff MO # K/uL 0.2 1.3 0.6 FINAL Augustus Edu R[facility]ot [facility] - [place], [address] [place] [phone] 0 Phone: () - 12/09 CBC w/ auto diff EO # K/uL 0.0 0.6 0.2 FINAL Augustus Edu [facility] - [place], [address] [place] [phone] 0 Phone: () - 12/09 CBC w/ auto diff BA # K/uL 0.0 0.2 0.1 FINAL Augustus Edu [facility] - [place], [address] [place] [phone] 0 Phone: () - 12/09 CBC w/ auto diff NRBC % #/100W BC 0.0 0.2 0.0 FINAL Augustus Edu [facility] - [place], [address] [place] [phone] 0 Phone: () - 12/09 CBC w/ auto diff RBC M/uL 4.2 5.6 3.86 Low FINAL Augustus Edu [facility] - [place], [address] [place] [phone] 0 Phone: () - 12/09 CBC w/ auto diff HCT % 39.0 49.0 36.3 Low FINAL Augustus Edu Riderot [facility] - [place], [address] [place] [phone] 0 Phone: () - 12/09 CBC w/ auto diff MCV fL 80.0 104.0 94.0 FINAL Augustus Edu R[facility]ot [facility] - [place], [address] [place] [phone] 0 Phone: () - 12/09 CBC w/ auto diff MCH pg 26.0 35.0 31.6 FINAL Augustus Edu Riderot [facility] - [place], [address] [place] [phone] 0 Phone: () - 12/09 CBC w/ auto diff MCHC g/dL 30.0 35.0 33.6 FINAL [facility] - [place], [address] [facility] [address] [place] [phone] 0 Phone: () - 12/09 CBC w/ auto diff MPV fL 9.5 13.4 9.0 Low FINAL [place] [facility] - [place], [address] [address] [place] [phone] 0 Phone: () - 12/09 CBC w/ auto diff RDW % 11.3 15.6 12.90 FINAL Augustus [facility] - [place], [address] [address] [place] [phone] 0 Phone: () - Medications Date Name [...] CKD Active Vital Signs Date Type Value 02/28/2019 BSA 1.96 02/28/2019 BMI 27.43 02/28/2019 Height 68.00 02/28/2019 Weight 180.40 02/28/2019 Body Temperature 96.20 02/28/2019 Intravascular Systolic 120 02/28/2019 Intravascular Diastolic 62 02/28/2019 Oxygen Saturation 99.00 02/28/2019 Heart Beat 80.00 02/28/2019 Pain Scale 0.00 03/21/2019 BMI 27.20 03/21/2019 BSA 1.95 03/21/2019 Height 68.00 03/21/2019 Weight 178.90 03/21/2019 Pain Scale 0.00 03/21/2019 Intravascular Systolic 118 03/21/2019 Intravascular Diastolic 64 03/21/2019 Oxygen Saturation 96.00 03/21/2019 Heart Beat 92.00 03/21/2019 Body Temperature 97.60 04/19/2019 Body Temperature 96.40 04/19/2019 BSA 1.99 04/19/2019 BMI 28.43 04/19/2019 Height 68.00 04/19/2019 Heart Beat 84.00 04/19/2019 Pain Scale 0.00 04/19/2019 Intravascular Systolic 108 04/19/2019 Intravascular Diastolic 64 04/19/2019 Oxygen Saturation 96.00 04/19/2019 Weight 187.00 05/09/2019 BSA 2.00 05/09/2019 Body Temperature 97.30 05/09/2019 Heart Beat 80.00 05/09/2019 Oxygen Saturation 97.00 05/09/2019 Intravascular Systolic 128 05/09/2019 Intravascular Diastolic 60 05/09/2019 Pain Scale 0.00 05/09/2019 Weight 190.80 05/09/2019 Height 68.00 05/09/2019 BMI 29.01 11/22/2019 BMI 32.81 11/22/2019 BSA 2.11 11/22/2019 Height 68.00 11/22/2019 Weight 215.80 11/22/2019 Body Temperature 97.00 11/22/2019 Intravascular Systolic 116 11/22/2019 Intravascular Diastolic 72 11/22/2019 Oxygen Saturation 96.00 11/22/2019 Respiratory Rate 16.00 11/22/2019 Heart Beat 73.00 11/22/2019 Pain Scale 0.00 06/05/2020 Body Temperature 96.60 06/05/2020 Heart Beat 76.00 06/05/2020 Respiratory Rate 18.00 06/05/2020 Oxygen Saturation 97.00 06/05/2020 Intravascular Systolic 120 06/05/2020 Intravascular Diastolic 64 06/05/2020 Pain Scale 0.00 06/05/2020 Weight 217.10 06/05/2020 Height 68.00 06/05/2020 BMI 33.01 06/05/2020 BSA 2.12 10/03/2020 Body Temperature 95.90 10/03/2020 Heart Beat 67.00 10/03/2020 BSA 2.11 10/03/2020 BMI 32.92 10/03/2020 Height 68.00 10/03/2020 Weight 216.50 10/03/2020 Pain Scale 0.00 10/03/2020 Intravascular Systolic 126 10/03/2020 Intravascular Diastolic 58 10/03/2020 Oxygen Saturation 98.00 04/06/2021 Body Temperature 95.90 04/06/2021 BMI 32.23 04/06/2021 Height 68.00 04/06/2021 Weight 212.00 04/06/2021 BSA 2.10 04/06/2021 Intravascular Systolic 116 04/06/2021 Intravascular Diastolic 72 04/06/2021 Oxygen Saturation 98.00 04/06/2021 Heart Beat 67.00 04/06/2021 Pain Scale 0.00 09/24/2021 Body Temperature 96.50 09/24/2021 BSA 2.12 09/24/2021 BMI 33.30 09/24/2021 Height 68.00 09/24/2021 Weight 219.00 09/24/2021 Pain Scale 0.00 09/24/2021 Intravascular Systolic 126 09/24/2021 Intravascular Diastolic 61 09/24/2021 Oxygen Saturation 96.00 09/24/2021 Heart Beat 78.00 12/09/2022 Body Temperature 97.30 12/09/2022 BMI 31.93 12/09/2022 Height 68.00 12/09/2022 Weight 210.00 12/09/2022 BSA 2.09 12/09/2022 Intravascular Systolic 112 12/09/2022 Intravascular Diastolic 60 12/09/2022 Oxygen Saturation 96.00 12/09/2022 Respiratory Rate 18.00 12/09/2022 Heart Beat 69.00 12/09/2022 Pain Scale 0.00
--- OUTSIDE RECORDS SUMMARY | 2024-11-01 19:08 | XMS_ITS | CCD ---
Author Name Interface, [id number] lity Address [address] [place] [address] [address] [address] [facility] Address [address] [facility] [address] [address] Care Team Providers Care Rn Renal Name Role Phone Augustus Alaniz Unavailable Unavailable Allergies and Adverse Reactions Medication/Group Name Reaction Severity Date No known allergies Care Plan Date Type Value 12/09/2023 LABORDER CBC w/ auto diff 12/09/2023 LABORDER CMP 12/09/2023 LABORDER LDH panel Reason for Visit LAB 10 MIN Functional Status Date Name Score 11/20/2018 ECOG performance status - grade 2 2 12/11/2018 ECOG performance status - grade 2 2 02/07/2019 ECOG performance status - grade 2 2 06/05/2020 ECOG performance status - grade 1 1 Medications Date Name Route Dose Frequency Instructions Start Date End Date Status 2018 Omeprazole Oral Delayed Release Capsule PO 1.0 CAPSULE(S), ENTERIC COATED daily 2018 active 2018 Terbinafine Topical Cream 1 % Topical 1.0 UNIT apply to affectied areas 2 times a day 02/07 inactive 2018 Melatonin Sublingual PO 1.0 TABLET(S), SUBLINGUAL daily 02/07 inactive 2018 Spironolactone Oral PO 1.0 TABLET(S) daily 2018 active 2018 Oxycodone Oral PO 5.0 MG every 6 hours as needed pain 02/07 inactive 2018 Famotidine Oral PO 1.0 TABLET(S) QHS 2018 active 2018 Acetaminophen Oral PO 2.0 TABLET(S) Q4-6H PRN 02/07 inactive 2018 Furosemide Oral PO 1.0 TABLET(S) daily 2018 active 2018 Ferrous Sulfate Oral PO 1.0 TABLET(S) daily 2018 active 2018 Hydrocortisone Topical Cream 1 % Topical 1.0 TOPICAL APPLICATION QID PRN 2018 active 2018 Acyclovir Oral PO 1.0 TABLET(S) BID 2018 active 2018 Tamsulosin Oral PO 1.0 CAPSULE daily as directed 2018 active 2018 Polyethylene Glycol Oral Powder PO 17.0 GRAM daily as directed 02/07 inactive 2018 Venlafaxine Oral 24 hr Cap PO 1.0 CAPSULE(S) daily 1-75 mg tab and 1-37.5 mg tab 2018 active Problems Diagnosis Status Date of Diagnosis Resolution Date Body mass index (BMI) 26.0-26.9, adult Inactive Body mass index (BMI) 31.0-31.9, adult Inactive Drug prophylaxis (procedure) Active Diffuse non-Hodgkin's lympho ma, large cell (disorder) Active 10/2018 Portal hypertension (disorder) Active CKD Active Procedures Date Category Name Instructions Status 12/10/2023 Physician Order RTC MD Ordered Social History Date Name Value 12/10/2022 Sex Male
--- OUTSIDE RECORDS SUMMARY | 2024-11-01 19:08 | XMS_ITS ---
Author Name Interface, [id number] lity Address [address] [place] [address] [address] [address] [facility] Address [address] [facility] [address] [address] Allergies and Adverse Reactions Medication/Group Name Reaction [...] FINAL Augustus Edu Riderot [facility] - [place], [address] [facility] [phone] Phone: () - 12/09 CBC w/ auto diff WBC K/uL 3.0 8.9 6.2 FINAL [facility] [place] [facility], [address] [facility] [phone] 0 Phone: () - 12/09 CBC w/ auto diff HGB g/dL 12.5 16.6 12.2 Low FINAL Augustus Edu [facility]ot [facility] - [place], [address] [place] [phone] 0 Phone: () - 12/09 CBC w/ auto diff PLT K/uL 113.0 364.0 210 FINAL Augustus Edu [facility]ot [facility] - [place], [address] [place] [phone] 0 Phone: () - 12/09 CBC w/ auto diff Laisha # (ANC) K/uL 1.6 6.6 4.1 FINAL Augustus Edu [facility] - [place], [address] [place] [phone] 0 Phone: () - 12/09 CBC w/ auto diff Laisha % % 43.0 74.0 66.5 FINAL Augustus Edu [facility] - [place], [address] [place] [phone] 0 Phone: () - 12/09 CBC w/ auto diff IG % % 0.0 0.5 0.3 FINAL Augustus Edu [facility] - [place], [address] [place] [phone] 0 Phone: () - 12/09 CBC w/ auto diff IG # K/uL 0.0 0.03 0.02 FINAL Augustus Edu [facility] - [place], [address] [place] [phone] 0 Phone: () - 12/09 CBC w/ auto diff LY % % 14.0 41.0 19.6 FINAL Augustus Edu [facility] - [place], [address] [place] [phone] 0 Phone: () - 12/09 CBC w/ auto diff MO % % 6.0 15.0 9.5 FINAL Augustus Edu [facility] - [place], [address] [place] [phone] 0 Phone: () - 12/09 CBC w/ auto diff EO % % 0.0 7.0 2.7 FINAL Augustus [facility] - [place], [address] [place] [phone] 0 Phone: () - 12/09 CBC w/ auto diff BA % % 0.0 2.0 1.4 FINAL Augustus [facility] - [place], [address] [place] [phone] 0 Phone: () - 12/09 CBC w/ auto diff LY # K/uL 0.4 3.6 1.2 FINAL Augustus [facility] - [place], [address] [place] [phone] 0 Phone: () - 12/09 CBC w/ auto diff MO # K/uL 0.2 1.3 0.6 FINAL Augustus [facility] - [place], [address] [place] [phone] 0 Phone: () - 12/09 CBC w/ auto diff EO # K/uL 0.0 0.6 0.2 FINAL Augustus [facility] - [place], [address] [place] [phone] 0 Phone: () - 12/09 CBC w/ auto diff BA # K/uL 0.0 0.2 0.1 FINAL Augustus Edu [facility] - [place], [address] [place] [phone] 0 Phone: () - 12/09 CBC w/ auto diff NRBC % #/100W BC 0.0 0.2 0.0 FINAL Augustus Edu Garduno [facility] - [place], [address] [place] [phone] 0 Phone: () - 12/09 CBC w/ auto diff RBC M/uL 4.2 5.6 3.86 Low FINAL Augustus Edu [facility] - [place], [address] [place] [phone] 0 Phone: () - 12/09 CBC w/ auto diff HCT % 39.0 49.0 36.3 Low FINAL Augustus Edu R[facility] - [place], [address] [place] [phone] 0 Phone: () - 12/09 CBC w/ auto diff MCV fL 80.0 104.0 94.0 FINAL Augustus Edu R[facility] - [place], [address] [place] [phone] 0 Phone: () - 12/09 CBC w/ auto diff MCH pg 26.0 35.0 31.6 FINAL Augustus Edu R[facility] - [place], [address] [place] [phone] 0 Phone: () - 12/09 CBC w/ auto diff MCHC g/dL 30.0 35.0 33.6 FINAL Augustus Edu R[facility] - [place], [address] [place] [phone] 0 Phone: () - 12/09 CBC w/ auto diff MPV fL 9.5 13.4 9.0 Low FINAL Augustus Edu R[facility] - [place], [address] [place] [phone] 0 Phone: () - 12/09 CBC w/ auto diff RDW % 11.3 15.6 12.90 FINAL Augustus Edu R[facility] - [place], [address] [place] [phone] 0 Phone: () - 12/09 CMP Album in g/dL 3.2 5.2 4.2 FINAL Augustus Edu R[facility] - [place], [address] [place] [phone] 0 Phone: () - 12/09 CMP Alkal ine phosp hatas e U/L 46.0 116.0 84 FINAL [place] [address] [address] [facility] [address] [phone] 0 Phone: () - 12/09 CMP ALT/S GPT U/L 7.0 40.0 28 FINAL [facility] [address] [facility] [address] [phone] 0 Phone: () - 12/09 CMP AST/S GOT U/L 13.0 40.0 25 FINAL [place] [address] [address] [facility] [address] [phone] Phone: () - 12/09 CMP BUN mg/dL 9.0 23.0 21.0 FINAL [place] [address] [address] [facility] [address] [phone] 0 Phone: () - 12/09 CMP Calci um mg/dL 8.7 10.4 9.3 FINAL [place] [address] [address] [facility] [address] [phone] 0 Phone: () - 12/09 CMP Chlor ocnstance mmol/L 96.0 114.0 105 FINAL [place] [address] [phone] 0 Phone: () - 12/09 CMP CO2 [...] of the 96 hour stability window. FINAL [facility], [facility] [address] [facility] [address] [phone] 0 Phone: () - 12/09 CMP Creat inine mg/dL 0.5 1.2 2.02 High FINAL [facility], [address] [phone] 0 Phone: () - 12/09 CMP GFR estim ate ml/min /1.73m ^2 34.4 Low GFR is calculate d using the CKD-EPI equation. FINAL [facility], [facility] [address] [phone] 0 Phone: () - 12/09 CMP Gluco se mg/dL 73.0 126.0 97 FINAL [place] [address] [phone] 0 Phone: () - 12/09 CMP Potas sium mmol/L 3.5 5.1 4.8 FINAL [place] [address] [phone] 0 Phone: () - 12/09 CMP Sodiu m mmol/L 136.0 145.0 139 FINAL [place] [address] [phone] 0 Phone: () - 12/09 CMP Bilir ubin, total mg/dL 0.3 1.2 0.2 Low FINAL [place] [address] [phone] 0 Phone: () - 12/09 CMP Total prote in g/dL 5.7 8.2 6.7 FINAL [place] [address] [phone] Phone: () - Medications Date Name [...] was hospitalized between 01/01 and 01/[address] [facility] for abdominal distention and worsening lower extremity [...]
--- OUTSIDE RECORDS SUMMARY | 2024-11-01 19:08 | XMS_ITS | Clinical Summary ---
Author Organization [email or web address] Address [address] [place] [id number] Care Team Providers Care Supervisor Cell Room Name Role Phone Staci Del Rosario RN Unavailable [phone] Marin Ramirez MD Primary Care Provider + Allergies No known active allergies Medications acetaminophen (TYLENOL) 325 mg tablet Take 2 tablets by mouth every 4 hours if needed. Max acetaminophen dose: 4000mg in 24 hrs. 0 01/22/20 17 Active polyethylene glycoL (MIRALAX) 17 gram/scoop powder Mix in liquid then take by mouth. 11/19/19 23 Active trimethoprim-s ulfamethoxazol e, 160-800 mg, (BACTRIM DS, SEPTRA DS) tabIndications :Lymphoma, unspecified body region, unspecified lymphoma type (HC) TAKE ONE TABLET BY MOUTH TWICE DAILY -TAKE ONLY ON TUESDAYS AND FRIDAYS 48 Tablet 3 12/05/19 24 Active famotidine (PEPCID) 20 mg tabletIndicati ons:Dyspepsia TAKE ONE TABLET BY MOUTH EVERY DAY 90 Tablet 2 12/25/19 24 Active acyclovir 400 mg tabletIndicati ons:Non-Hodgki n's lymphoma in adult (HC) TAKE ONE TABLET BY MOUTH TWICE A DAY 180 Tablet 3 07/12/19 25 Active spironolactone 25 mg tabletIndicati ons:Leg edema,Other ascites TAKE ONE TABLET BY MOUTH TWICE A DAY 180 Tablet 3 07/12/19 25 Active nicotine 4 mg lozengeIndicat ions:Tobacco use disorder Place 1 Lozenge (4 mg) in mouth, between cheek & gum every hour while awake as needed for Nicotine Craving. Max 20 doses/day. 72 Lozenge 5 07/12/19 25 Active venlafaxine 150 mg Extended-Relea se capsuleIndicat ions:Dysthymic disorder TAKE ONE CAPSULE BY MOUTH EVERY MORNING . 90 Capsule 1 07/12/19 25 Active rosuvastatin 40 mg tabletIndicati ons:Dyslipidem ia, goal LDL below 100 Take 1 Tablet (40 mg) by mouth at bedtime. 90 Tablet 3 07/12/19 25 Active omeprazole 20 mg Delayed-Releas e capsuleIndicat ions:Gastroeso phageal reflux disease, unspecified whether esophagitis present Take 1 Capsule (20 mg) by mouth once daily before a meal. 90 Capsule 3 07/12/19 25 Active ferrous sulfate (FeroSuL) 325 mg (65 mg iron) tabletIndicati ons:Anemia, unspecified type Take 1 Tablet (325 mg) by mouth once daily. 100 Tablet 3 07/12/19 25 Active propranoloL 20 mg tabletIndicati ons:Essential tremor TAKE ONE TABLET BY MOUTH TWICE A DAY 180 Tablet 08/24/19 25 Active primidone 50 mg tabletIndicati ons:Benign essential tremor TAKE ONE TABLET BY MOUTH EVERY MORNING AND TAKE TWO TABLETS (100 MG TOTAL) AT BEDTIME 90 Tablet 11 10/02/19 25 Active tamsulosin 0.4 mg capsuleIndicat ions:BPH with urinary obstruction TAKE ONE CAPSULE BY MOUTH EVERY DAY AFTER A MEAL 90 Capsule 10/14/19 25 Active tamsulosin (FLOMAX) 0.4 mg capsuleIndicat ions:BPH with urinary obstruction TAKE ONE CAPSULE BY MOUTH EVERY DAY AFTER A MEAL 90 Capsule 2 01/16/20 24 2024 Discontinued Active Problems Problem Noted Date Diagnosed Date Umbilical hernia without obstruction and without gangrene 10/17/2024 Pulmonary nodules 12/29/2023 Overview (12/29/2023): Left and right. Repeat CT in June 2024 Diffuse large B-cell lymphoma, unspecified body region 06/15/2023 Non-Hodgkin's lymphoma in adult 06/15/2023 Alcohol dependence, in remission 05/13/2022 Obesity (BMI 30.0-34.9) 11/23/2018 ACP (advance care planning) 11/20/2018 Overview (11/20/2018): Patient has identified Health Care Agent(s): No Add Health Care Agents: No Patient has Advance Care Plan Documents (Health Care Directive, POLST): No Patient has identified Specific Treatment Preferences: Yes How have preferences been verified: verbal Specific Treatment Preferences: a.) Code Status: CPR/Attempt Resuscitation Light headedness 11/20/2018 Benign prostatic hyperplasia without lower urinary tract symptoms 11/20/2018 Moderate major depression 09/29/2017 Chronic pain of right knee 07/30/2016 Adenomatous colon polyp 11/05/2014 Overview (12/06/2014): Colonoscopy 10/2014 colon polyps, incomplete colonoscopy, recommend barium enema in one month and then every 5 years Barium enema 11/2014 no polyps mild diverticuli, recommend barium enema in 5 years Tobacco use disorder 02/22/2007 Impotence of organic origin Klinefelter's syndrome Resolved Problems Problem Noted Date Diagnosed Date Resolved Date Portal hypertension 04/05/2020 05/13/19 23 Hypotension 01/02/2019 03/05/2020 Malignant ascites 01/01/2019 03/05/2020 Cellulitis 01/01/2019 03/05/2020 Hemorrhoids 11/28/2018 03/05/2020 Fluid overload 11/20/2018 03/05/2020 Acute pancreatitis 11/10/2018 0 Diffuse large B-cell lymphom a of solid organ excluding spleen 11/10/2018 05/13/2022 Anticoagulation monitoring, special range 01/12/2017 01/27/2017 Dysthymic disorder 9 Encounters Date Type Department Care Team Description 10/18/2024 Telephone [facility] [address] [place] [address] Marin Ramirez MD 10/17/2024 2:15 PM CDT Office Visit [facility] [address] [place] [address] Bharat Pak DO Musculoskeletal Problem (Right knee Pain. ); Abdominal Pain (Right lower pain ) 10/17/2024 Travel 10/11/2024 Refill [facility] [address] [place] [address] Marin Ramirez MD Refill Request (Tamsulosin) 09/28/2024 Refill [facility] [address] [place] [address] Marin Ramirez MD Refill Request (Primidone) 08/23/2024 Refill [facility] [address] [place] [address] Joshua Gardner MBBS Refill Request (Propranolol) 08/21/2024 Telephone [facility] [address] [place] [address] VoteMarin hollis MD Form 08/13/2024 Telephone [facility] [address] [place] [address] VoteMarin hollis MD Medication Management from Last 3 Months Immunizations Immunization Administration Dates Next Due AMB Influenza, IIV3 (Age >=3 years)(Flu Clinic Only) 03/08/2013 COVID-19 VACCINE SPIKEVAX (M ODERNA 50MCG/0.5ML) 12YO+ PFS 03/16/2023 COVID-19 vaccine (Pfizer-Bio NTech 30mcg/0.3mL) 12YO+ DONG-SUCROSE PF, MDV 11/18/2021 COVID-19 vaccine (Pfizer-Bio NTech 30mcg/0.3mL) PF, MDV 01/14/2021,07/11/2020,06/20/2020 Influenza Virus, Unspecified 01/16/2015, 02/22/2012,12/25/2010,2008 Influenza, High-dose Inactivated 03/08/2018 Influenza, High-dose Quadriv alent Inactivated 2023,02/11/2020 Influenza, IIV3 (Age >=3 years) 03/31/2009,03/08,02/01/2007 Influenza, IIV4 12/24/2016,01/30/2016,01/04/2014 Influenza, IIV4 (=>6mos) MDV 02/01/2015 Influenza, Inactivated IIV3 (Age 65+ Years) Preserv Free 04/19/2024,02/21/2019 Pneumococcal Poly,23-Valent (Pneumovax) 05/22/2018,03/08/2008 Pneumococcal conj 13-Valent (Prevnar 13) 07/30/2016 Pneumococcal, Unspecified 04/18/2007 Td (Age >=7 Years) 05/03/1997 Tdap 04/19/2024,07/29/2008,04/18/2008 Zoster (Shingrix-RZV, recombinant) 10/11/2024 Zoster (Zostavax-ZVL, live) 07/30/2011 Family History Medical History Relation Name Comments Blood Disease Brother 1 Carlos Alberto blood clots in neck and legs Dementia Brother 1 Carlos Alberto Other Brother 2 Pablito Hit by a car Alcohol/Drug Father Heart Disease Father @ age 74 Hypertension Father Other Father depression/hx a ortic aneursyn Other Mother depression/oste oarthritis Stroke Mother @ age 94 Anesthesia Problem No Family History Relation Name Status Comments Brother 1 Carlos Alberto Brother 2 Pablito Father (Age 74) Mother (Age stroke) Sister Kelsey Alive Social History Tobacco Use Types Packs/Day Years Used Date Smoking Tobacco: Light Smoker Cigarettes 0.3 30 Smokeless Tobacco: Never Tobacco Cessation:Ready to Q uit: Yes; Counseling Given: Not Answered Comments:working on quitting. 1/2 pack every 2 days. Alcohol Use Standard Drinks/Week Comments No 0 (1 standard drink = 0.6 oz pure alcohol) CD treatment 1972, quit drinking in 1975 PHQ-2 Answer Date Recorded PHQ-2 TOTAL SCORE 1 07/11/2024 Social Connections Answer Date Recorded Do you often feel lonely or isolated from those around you? 0 07/11/2024 Financial Resource Strain Answer Date R ecorded Difficulty of Paying Living Expenses 3 07/11/2024 Difficulty of Paying Living Expenses Not on file 07/11/2024 Food Insecurity Answer Date Recorded Do you worry your food will run out before you are able to buy more? 1 07/11/2024 Transportation Needs Answer Date Record ed Does lack of transportation keep you from medica l appointments? 1 07/11/2024 Does lack of transportation keep you from work, meetings or getting things that you need? 1 07/11/2024 Housing Stability Answer Date Recorded What is your housing situation today? 1 07/11/2024 Utilities Answer Date Recorded Do you have trouble paying f or utilities (for example, heat, electricity, water, phone)? 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 Gender Identity Not on file Sexual Orientation Not on file Occupation Industry Job Start Date Job End Date Not on file Not on file Not on file Not on file Obstetrics History Last Filed Vital Signs Vital Sign Reading Time Taken Comments Blood Pressure 122/77 10/17/2024 2:13 PM CDT Pulse 62 10/17/2024 2:13 PM CDT Temperature 36.8 C (98.2 F) 10/17/2024 2:13 PM CDT Respiratory Rate 16 05/04/2019 1:15 PM CRAB BACKER Oxygen Saturation 96% 10/17/2024 2:13 PM CDT Inhaled Oxygen Concentration - - Weight 106.5 kg (234 lb 11.2 oz) 10/17/2024 2:13 PM CDT Height 172.5 cm (5' 7.9) 07/11/2024 3:17 PM CDT Body Mass Index 35.79 07/11/2024 3:17 PM CDT Plan of Treatment Health Maintenance Due Date Last Done Comments RSV vaccine for adults or (1 - Risk 60-74 years 1-dose series) 2011 COVID-19 vaccine series ( season) 2024 08/10/2024, 01/16/2024, 10/31/2023, Additional history exists Zoster (shingles) series for age 50+ (2 of 2) 12/06/2024 10/11/2024, 07/30/2011 Influenza Vaccine (#1) 2024 , 02/21/2019, 03/08/2018, Additional history exists Colonoscopy through age 75 03/17/2025 09/14/2024, BMI (ht and wt on same day) for age 18+ 07/11/2025 07/11/2024, 09/28/2023, 06/15/2023, Additional history exists Depression screening for age 12+ 07/11/2025 07/11/2024, 09/29/2023, 09/28/2023, Additional history exists Medicare Wellness for age 65+ 07/12/2025 07/11/2024, 11/11/2022, 07/07/2021 Lipids for age 45-75 07/11/2029 07/11/2024, 09/13/2023, 06/08/2023, Additional history exists Tetanus booster 04/19/2034 04/19/2024, 07/17, 04/18/2008, Additional history exists Pneumococcal series for age 50+ Completed 05/22/2018, 07/30/2016, 03/08/2008, Additional history exists Hepatitis C screening for age 18-79 Completed 01/12/2019, 11/14/2018 AAA screening age 65-74 Completed 03/12/20 19, 01/02/2019, 11/11/2018 Hepatitis B series for 19+ Aged Out N o longer eligible based on patient's age to complete this topic Procedures Procedure Name Priority Date/Time Associated Diagnosis Comments SCAN-COLONOSCOPY 09/14/2024 1:00 PM CDT LIPID PANEL W REFLEX MEASURED LDL Routine 07/11/2024 4:28 PM CDT Screening cholesterol level CT ABDOMEN PELVIS W Routine 03/12/2019 1 :47 PM CRAB BACKER Abdominal pain, epigastric Diffuse large B-cell lymphoma of solid organ excluding spleen (HC) Malignant ascites (HC) EXPOSURE (BBF) ANTI HCV STAT 01/12/2019 10:55 AM CDT from Last 3 Months or Most Recently Relevant to Health Maintenance Results * SCAN-COLONOSCOPY (09/14/2024 1:00 PM CDT) Narrative Procedure Note Patrice Donohue MD - 09/14/2024 11:54 AM CDT [facility] [place] [id number], [address], [place] [address] Patient Name: Colton Jiménez Gender: Male Exam Date: 09/14/2024 Visit Number: [id number] Age: 74 Years Date of : 1950 Attending MD: Patrice Donohue MD Medical Record#: [id number] Procedure: Colonoscopy Indications: Screening after positive non-invasive stool test Referring MD: Marin Ramirez MD Primary MD: Marin Ramirez MD Medications: Intra Procedure Medications: Patient received monitored anesthesia care. Complications: No immediate complications Procedure: An examination of the heart and lungs was performed and found to be withinacceptable limits. . The patient was therefore deemed a reasonablecandidate for endoscopy and sedation. The risks and benefits of the procedure were explained to thepatient.After obtaining informed consent, the patient received monitoredanesthesia care and I passed the scope without difficulty via the rectum to the ileum. The appendiceal orificeand ic valve were identified. The quality of the prep was good(Miralax/Gatorade/2 tablets Bisacodyl/Magnesium Citrate). This was a complete examination throughout the entire colon. Findings: Normal finding. Location - ileum. Polyp location: ascending colon. Quantity: 2. Size: 5-6 mm. Polypshape: sessile. Maneuver: polypectomy was performed with a cold snare. Removal: complete. Retrieval: complete. Bleeding: none. Polyp location: transverse colon. Quantity: 1. Size: 3 mm. Polypshape: sessile. Maneuver: polypectomy was performed with a cold snare. Removal: complete. Retrieval: complete. Bleeding: none. Polyp location: descending colon. Quantity: 1. Size: 5 mm. Polypshape: sessile. Maneuver: polypectomy was performed with a cold snare. Removal: complete. Retrieval: complete. Bleeding: none. Polyp location: sigmoid. Quantity: 2. Size: 4-5 mm. Polyp shape:sessile. Maneuver: polypectomy was performed with a cold snare. Removal: complete. Retrieval: complete. Bleeding: none. Hemorrhoids. Internal hemorrhoids without bleeding. Impression: Colorectal polyps Internal hemorrhoids Preliminary Plan: The patient and their physician will receive a copy of the pathologyreport as well as pathology-based recommendations for future screening orsurveillance. Pathology Results: A: COLON, ASCENDING, POLYPS: 1. Tubular adenoma (1) and sessile serrated adenoma (1) a. Negative for high grade dysplasia in tubular adenomacomponent b. Negative for overt dysplasia in sessile serrated adenomacomponent 2. Per the colonoscopy report: a. Polyp sizes: 5 mm - 6 mm b. Resection: Complete c. Retrieval: Complete B: COLON, TRANSVERSE, POLYP: 1. Sessile serrated adenoma 2. Negative for overt dysplasia 3. Per the colonoscopy report: a. Polyp size: 3 mm b. Resection: Complete c. Retrieval: Complete C: COLON, DESCENDING, POLYP: 1. Tubular adenoma 2. Negative for high grade dysplasia 3. Per the colonoscopy report: a. Polyp size: 5 mm b. Resection: Complete c. Retrieval: Complete D: COLON, SIGMOID, POLYPS: 1. Tubular adenoma (1) and hyperplastic polyp (1) 2. Negative for high grade dysplasia 3. Per the colonoscopy report: a. Polyp sizes: 4 mm - 5 mm b. Resection: Complete c. Retrieval: Complete MICROSCOPIC A: Performed B: Performed C: Performed D: Performed Electronically signed by: Berry Benavides MD Interpreted at [facility], [address] [place] [id number] Orders Instruction(s)/Education: Instruction/Education Timeframe Assessment Colon Cancer Prevention K63.5 Colon Polyps K63.5 Hemorrhoids K63.5 Final Plan: Repeat colonoscopy in 3 years for Polyp surveillance. We will attempt to contact you at appropriate intervals via U.S. mail. Wemay not be able to find you or contact you at that time, therefore youshould know that the responsibility for following our recommendation restswith you. If you don't hear from us at the time your procedure is due,please contact our office to schedule an appointment. If your contactinformation should change, please contact our office so that we can updateyour record. _Electronically signed by: Patrice Donohue MD 09/14/2024 cc: Marin Ramirez MD cc: Marin Ramirez MD us Patrice Donohue MD OTHER Final Resul t * (ABNORMAL) LIPID PANEL W REFLEX MEASURED LDL (07/11/2024 4:28 PM CDT) CHOLESTEROL, TOTAL 151 <200 mg/dL [facility] HDL CHOLESTEROL 53 > OR = 40 mg/dL [facility] TRIGLYCERIDES 211(H) <150 mg/dL [facility] Comment: If a non-fasting specimen was collected, consider repeat triglyceride testing on a fasting specimen if clinically indicated. Randi et al. J. of Clin. Lipidol. 2015;9:129-169. LDL-CHOLESTEROL 70 mg/dL (calc) [facility] Comment: Reference range: <100 Desirable range <100 mg/dL for primary prevention; <70 mg/dL for patients with CHD or diabetic patients with > or = 2 CHD risk factors. LDL-C is now calculated using the Liliane calculation, which is a validated novel method providing better accuracy than the Friedewald equation in the estimation of LDL-C. Darrin SS et al. MARGIE. 2013;310(19): 3905-3920 (http://education.Clear Books/faq/RQZ039) CHOL/HDLC RATIO 2.8 <5.0 (calc) [facility] NON HDL CHOLESTEROL 98 <130 mg/dL (calc) [facility] Comment: For patients with diabetes plus 1 major ASCVD risk factor, treating to a non-HDL-C goal of <100 mg/dL (LDL-C of <70 mg/dL) is considered a therapeutic option. Blood BLOOD SPECIMEN / Unknown 07/11/2024 4:28 PM CDT 07/11/2024 4:29 PM CDT Narrative [employer] [facility] - 07/12/2024 4:56 AM CDT FASTING:NO FASTING: NO us Marin Ramirez MD CHEMISTRY Final Re sult [employer] [facility] [address] [place] [address], [facility] [address] [place] [address] * CT ABDOMEN PELVIS W (03/12/2019 1:47 PM CRAB BACKER) Anatomical Region Laterality Modality Abdomen, Pelvis, AORTA, LIVER, SPLEEN Computed Tomography 03/12/2019 2:10 PM CRAB BACKER Narrative 03/12/2019 2:10 PM CRAB BACKER Indication: Lymphoma follow-up Technique: Routine post-contrast CT abdomen and pelvis performed after the administration of oral water and 100 cc Omnipaque 350 intravenous contrast. Please note that all CT scans at this facility use dose modulation, iterative reconstruction, and/or weight-based dosing when appropriate to reduce radiation dose to as low as reasonably achievable. Comparison: CT 11/11/2018 and 01/02/2019 Findings: Decreased size of the spleen since the prior examinations. Spleen now measures approximately 14.7 centimeters in craniocaudad dimension, previously measuring more than 16.5 centimeters on the prior study in December. There is a large area ill-defined decreased density within the posterior spleen, as before, measuring approximately 5.9 centimeters. Decreased bulky retroperitoneal adenopathy with residual mildly prominent left periaortic lymph node measuring 9 x 11 millimeters. Smaller subcentimeter aortocaval lymph nodes are present. No hydronephrosis. Adrenal glands normal. Normal pancreatic parenchymal enhancement. Mild residual intra-abdominal ascites and mild residual deep pelvic free fluid. Decreased anasarca since the prior study. No bowel obstruction. Bladder normal. No pelvic or inguinal adenopathy. No intrahepatic masses. Gallbladder incompletely distended. Left pleural effusion. No right effusion. Left lower lobe atelectasis. No fracture. Degenerative disc disease L4-5. Small umbilical hernia containing omental fat measuring 9 millimeters. Vascular calcifications. Impression: Interval near complete resolution of ascites anasarca since the most recent CT scan. Interval near complete resolution of bulky retroperitoneal adenopathy with mild residual lymph nodes in the left periaortic and aortocaval regions measuring up to 11 millimeters. Continued decreased size of the spleen, now measuring 14.7 centimeters in craniocaudad dimension. Multiple intrasplenic lesions are similar with the largest measuring up to 5.9 centimeters. Left pleural effusion with adjacent atelectasis. Right lung base clear. Please note that all CT scans at this facility use dose modulation, iterative reconstruction, and/or weight-based dosing when appropriate to reduce radiation dose to as low as reasonably achievable. Dictated by Narciso Layne MD @ Mar 12 2019 2:10PM (Electronically Signed) Procedure Note Narciso Layne MD - 03/12/2019 Indication: Lymphoma follow-up Technique: Routine post-contrast CT abdomen and pelvis performed after theadministration of oral water and 100 cc Omnipaque 350 intravenouscontrast. Please note that all CT scans at this facility use dose modulation,iterative reconstruction, and/or weight-based dosing when appropriate toreduce radiation dose to as low as reasonably achievable. Comparison: CT 11/11/2018 and 01/02/2019 Findings: Decreased size of the spleen since the prior examinations. Spleen nowmeasures approximately 14.7 centimeters in craniocaudad dimension,previously measuring more than 16.5 centimeters on the prior study inSeptember. There is a large area ill-defined decreased density within theposterior spleen, as before, measuring approximately 5.9 centimeters.Decreased bulky retroperitoneal adenopathy with residual mildly prominentleft periaortic lymph node measuring 9 x 11 millimeters. Smallersubcentimeter aortocaval lymph nodes are present. No hydronephrosis.Adrenal glands normal. Normal pancreatic parenchymal enhancement. Mildresidual intra-abdominal ascites and mild residual deep pelvic free fluid.Decreased anasarca since the prior study. No bowel obstruction. Bladdernormal. No pelvic or inguinal adenopathy. No intrahepatic masses.Gallbladder incompletely distended. Left pleural effusion. No righteffusion. Left lower lobe atelectasis. No fracture. Degenerative discdisease L4-5. Small umbilical hernia containing omental fat measuring 9millimeters. Vascular calcifications. Impression: Interval near complete resolution of ascites anasarca since the mostrecent CT scan. Interval near complete resolution of bulky retroperitoneal adenopathywith mild residual lymph nodes in the left periaortic and aortocavalregions measuring up to 11 millimeters. Continued decreased size of the spleen, now measuring 14.7 centimeters incraniocaudad dimension. Multiple intrasplenic lesions are similar with thelargest measuring up to 5.9 centimeters. Left pleural effusion with adjacent atelectasis. Right lung base clear. Please note that all CT scans at this facility use dose modulation,iterative reconstruction, and/or weight-based dosing when appropriate toreduce radiation dose to as low as reasonably achievable. Dictated by Narciso Layne MD @ Mar 12 2019 2:10PM (Electronically Signed) us Nila Reece MD CT Final Result * Patient Source ANTI HCV (01/12/2019 10:55 AM CDT) HEPATITIS C ANTIBODY Non-React adam Non-React adam 01/12/2019 12:09 PM CDT [facility] Comment:Antibodies to HCV no t detected; does not exclude the possibility of exposure to HCV. Blood BLOOD SPECIMEN / Unknown Butterfly / Unknown 01/12/2019 10:55 AM CDT 01/12/2019 11:04 AM CDT us Narciso Simmons MD SEND OUTS Final Result [facility] 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 Healthcare Directive 06/17/2023 024 POLST 02/15/2019 11:50 AM POLST Healthcare Directive 01/17/2019 12:00 AM 0 12/21/18 POLST 01/17/2019 12:00 AM 12/21/18 * Full Code (Latest Code Status on File) Date Activated Date Inactivated Comments 05/04/2019 10:04 AM 05/04/2019 5:40 PM * DNR Date Activated Date Inactivated Comments 01/01/2019 9:35 PM 01/12/2019 3:26 PM Question Answer Comments Code Status Discussion: Discussed * Full Code Date Activated Date Inactivated Comments 11/28/2018 5:19 PM 11/30/2018 4:49 PM * Full Code Date Activated Date Inactivated Comments 11/10/2018 5:49 PM 11/23/2018 1:21 PM Care Teams Supervisor Cell Room Relationship Specialty Start Date End Date Votel, Marin Gamez MD [address] [place] [address] PCP - General Family Practice 03/05/20 Staci Del Rosario, RN [address] [id number] Household Refrigeration Mechanic - Anna BARRETT Registered Nurse 04/18/19 [place] [address] Ring Attacher 07/20/24
--- OUTSIDE RECORDS SUMMARY | 2024-11-01 19:08 | XMS_ITS ---
Author Name Interface, L3Ogcfvho lity Address [address] [place] [address] [address] [place] [address] [facility] Oncology Address [address] [facility] [address] [place] [address] Allergies and Adverse Reactions Medication/Group Name Reaction [...] - 38 3 MOS RC-PHONE CONF - [phone] 08/08/2019 APPOINTMENT RC - 38 ARM 3 [...] in g/dL 3.2 5.2 4.7 FINAL Randy Rider[address] [id number] [phone] Phone: () - 10/30 CMP Alkal ine phosp hatas e U/L 46.0 116.0 119 High FINAL Randy Arriaga [address] [id number] 0 Phone: () - 10/30 CMP ALT/S GPT U/L 7.0 40.0 21 FINAL Randy Bart [address] [id number] 0 Phone: () - 10/30 CMP AST/S GOT U/L 13.0 40.0 19 FINAL Randy Arriaga [address] [id number] 0 Phone: () - 10/30 CMP BUN mg/dL 9.0 23.0 40 High FINAL Randy Arriaga [address] [id number] 0 Phone: () - 10/30 CMP Calci um mg/dL 8.7 10.4 10.7 High FINAL Bailey Sean[address] [phone] 0 Phone: () - 10/30 CMP Chlor constance mmol/L 96.0 114.0 106 FINAL Randy Bart [address] [id number] 0 Phone: () - 10/30 CMP CO2 mmol/L 20.0 31.0 30 FINAL Randy Sean[address] [id number] 0 Phone: () - 10/30 CMP Creat inine mg/dL 0.5 1.2 1.41 High FINAL Randy Sean[address] [id number] 0 Phone: () - 10/30 CMP GFR estim ate ml/min /1.73m ^2 50.6 Low GFR is calculate d using the CKD-EPI equation. FINAL Randy edward [address] [id number] 0 Phone: () - 10/30 CMP Gluco se mg/dL 73.0 126.0 101 FINAL Randy Garduno [address] [id number] 0 Phone: () - 10/30 CMP Potas sium mmol/L 3.5 5.1 4.7 FINAL Randy Rider[address] [id number] 0 Phone: () - 10/30 CMP Sodiu m mmol/L 136.0 145.0 141 FINAL Randy Rider[address] [id number] 0 Phone: () - 10/30 CMP Bilir ubin, total mg/dL 0.3 1.2 0.3 FINAL Randy Garduno [address] [id number] 0 Phone: () - 10/30 CMP Total prote in g/dL 5.7 8.2 7.0 FINAL Randy Garduno [address] [id number] 0 Phone: () - 10/30 LDH panel LDH U/L 120.0 246.0 180 [facility] Randy Rider[address] [id number] 0 Phone: () - 10/30 CBC w/ auto diff WBC K/uL 3.0 8.9 5.8 FINAL Randy Rider[address] [id number] 0 Phone: () - 10/30 CBC w/ auto diff HGB g/dL 12.5 16.6 12.7 FINAL Randy Garduno [address] [id number] 0 Phone: () - 10/30 CBC w/ auto diff PLT K/uL 113.0 364.0 192 FINAL Randy edward [address] [id number] 0 Phone: () - 10/30 CBC w/ auto diff Laisha # (ANC) K/uL 1.6 6.6 3.8 FINAL Randy edward [address] [id number] 0 Phone: () - 10/30 CBC w/ auto diff Laisha % % 43.0 74.0 64.8 FINAL Randy edward [address] [id number] 0 Phone: () - 10/30 CBC w/ auto diff IG % % 0.0 0.5 0.5 FINAL Randy edward [address] [id number] 0 Phone: () - 10/30 CBC w/ auto diff IG # K/uL 0.0 0.03 0.03 FINAL Randy edward [address] [id number] 0 Phone: () - 10/30 CBC w/ auto diff LY % % 14.0 41.0 21.4 FINAL Randy edward [address] [id number] 0 Phone: () - 10/30 CBC w/ auto diff MO % % 6.0 15.0 8.7 FINAL Randy edward [address] [id number] 0 Phone: () - 10/30 CBC w/ auto diff EO % % 0.0 7.0 3.6 FINAL Randy edward [address] [id number] 0 Phone: () - 10/30 CBC w/ auto diff BA % % 0.0 2.0 1.0 FINAL Randy edward [address] [id number] 0 Phone: () - 10/30 CBC w/ auto diff LY # K/uL 0.4 3.6 1.3 FINAL Randy Ducker [place] [address] [id number] 0 Phone: () - 10/30 CBC w/ auto diff MO # K/uL 0.2 1.3 0.5 FINAL Randy edward [address] [id number] 0 Phone: () - 10/30 CBC w/ auto diff EO # K/uL 0.0 0.6 0.2 FINAL Randy edward [address] [id number] 0 Phone: () - 10/30 CBC w/ auto diff BA # K/uL 0.0 0.2 0.1 FINAL Randy Garduno [address] [id number] 0 Phone: () - 10/30 CBC w/ auto diff NRBC % #/100W BC 0.0 0.2 0.0 FINAL Randy Garduno [address] [id number] 0 Phone: () - 10/30 CBC w/ auto diff RBC M/uL 4.2 5.6 4.10 Low FINAL Randy Rider[address] [id number] 0 Phone: () - 10/30 CBC w/ auto diff HCT % 39.0 49.0 38.0 Low FINAL Randy Garduno [address] [id number] 0 Phone: () - 10/30 CBC w/ auto diff MCV fL 80.0 104.0 92.7 FINAL Randy Garduno [address] [id number] 0 Phone: () - 10/30 CBC w/ auto diff MCH pg 26.0 35.0 31.0 FINAL Randy edward [address] [id number] 0 Phone: () - 10/30 CBC w/ auto diff MCHC g/dL 30.0 35.0 33.4 FINAL Randy edward [address] [id number] 0 Phone: () - 10/30 CBC w/ auto diff MPV fL 9.5 13.4 8.4 Low FINAL Randy edward [address] [id number] 0 Phone: () - 10/30 CBC w/ auto diff RDW % 11.3 15.6 14.20 FINAL Randy edward [address] [id number] 0 Phone: () - 03/04 LDH panel LDH U/L 120.0 246.0 205 FINAL Randy edward [address] [id number] 0 Phone: () - 03/04 CMP ALT/S GPT U/L 7.0 40.0 34 FINAL Randy edward [address] [id number] 0 Phone: () - 03/04 CMP AST/S GOT U/L 13.0 40.0 28 FINAL Randy edward [address] [id number] 0 Phone: () - 03/04 CMP BUN mg/dL 9.0 23.0 28 High FINAL Randy edward [address] [id number] 0 Phone: () - 03/04 CMP Calci um mg/dL 8.7 10.4 9.9 FINAL Randy edward [address] [id number] 0 Phone: () - 03/04 CMP Chlor constanec mmol/L 96.0 114.0 104 FINAL Randy edward [address] [id number] 0 Phone: () - 03/04 CMP CO2 mmol/L 20.0 31.0 28 FINAL Randy edward [address] [id number] 0 Phone: () - 03/04 CMP Creat inine mg/dL 0.5 1.2 1.27 High FINAL Randy Garduno [address] [id number] 0 Phone: () - 03/04 CMP GFR estim ate ml/min /1.73m ^2 57.2 Low GFR is calculate d using the CKD-EPI equation. FINAL Randy edward [address] [id number] 0 Phone: () - 03/04 CMP Gluco se mg/dL 73.0 126.0 99 FINAL Randy Garduno [address] [id number] 0 Phone: () - 03/04 CMP Potas sium mmol/L 3.5 5.1 4.4 FINAL Randy Garduno [address] [id number] 0 Phone: () - 03/04 CMP Sodiu m mmol/L 136.0 145.0 138 FINAL Randy Rider[address] [id number] 0 Phone: () - 03/04 CMP Bilir ubin, total mg/dL 0.3 1.2 0.3 FINAL Randy Garduno [address] [id number] 0 Phone: () - 03/04 CMP Total prote in g/dL 5.7 8.2 7.2 FINAL Randy edward [address] [id number] 0 Phone: () - 03/04 CMP Album in g/dL 3.2 5.2 5.0 FINAL Randy edward [address] [place] [id number] 0 Phone: () - 03/04 CMP Alkal ine phosp hatas e U/L 46.0 116.0 118 High FINAL Randy Rider[address] [id number] 0 Phone: () - 03/04 CBC w/ auto diff WBC K/uL 3.0 8.9 5.5 FINAL Randy Rider[address] [id number] 0 Phone: () - 03/04 CBC w/ auto diff HGB g/dL 12.5 16.6 13.0 FINAL Randy edward [address] [id number] 0 Phone: () - 03/04 CBC w/ auto diff PLT K/uL 113.0 364.0 218 FINAL Randy Rider[address] [id number] 0 Phone: () - 03/04 CBC w/ auto diff Laisha # (ANC) K/uL 1.6 6.6 3.8 FINAL Randy Rider[address] [id number] 0 Phone: () - 03/04 CBC w/ auto diff Laisha % % 43.0 74.0 68.3 FINAL Randy Rider[address] [id number] 0 Phone: () - 03/04 CBC w/ auto diff IG % % 0.0 0.5 0.4 FINAL Randy Rider[address] [id number] 0 Phone: () - 03/04 CBC w/ auto diff IG # K/uL 0.0 0.03 0.02 FINAL Randy Rider[address] [id number] 0 Phone: () - 03/04 CBC w/ auto diff LY % % 14.0 41.0 17.3 FINAL Randy Rider[address] [id number] 0 Phone: () - 03/04 CBC w/ auto diff MO % % 6.0 15.0 8.8 FINAL Randy Rider[address] [id number] 0 Phone: () - 03/04 CBC w/ auto diff EO % % 0.0 7.0 3.8 FINAL Randy edward [address] [id number] 0 Phone: () - 03/04 CBC w/ auto diff BA % % 0.0 2.0 1.4 FINAL Randy edward [address] [id number] 0 Phone: () - 03/04 CBC w/ auto diff LY # K/uL 0.4 3.6 1.0 FINAL Randy edward [address] [id number] 0 Phone: () - 03/04 CBC w/ auto diff MO # K/uL 0.2 1.3 0.5 FINAL Randy edward [address] [id number] 0 Phone: () - 03/04 CBC w/ auto diff EO # K/uL 0.0 0.6 0.2 FINAL Randy edward [address] [id number] 0 Phone: () - 03/04 CBC w/ auto diff BA # K/uL 0.0 0.2 0.1 FINAL Randy edward [address] [id number] 0 Phone: () - 03/04 CBC w/ auto diff NRBC % #/100W BC 0.0 0.2 0.0 AC edward [address] [id number] 0 Phone: () - 03/04 CBC w/ auto diff RBC M/uL 4.2 5.6 4.20 FINAL Randy Rider [place] [address] [id number] 0 Phone: () - 03/04 CBC w/ auto diff HCT % 39.0 49.0 39.6 AC edward [address] [id number] 0 Phone: () - 03/04 CBC w/ auto diff MCV fL 80.0 104.0 94.3 FINAL Randy edward [address] [id number] 0 Phone: () - 03/04 CBC w/ auto diff MCH pg 26.0 35.0 31.0 FINAL Randy edward [address] [id number] 0 Phone: () - 03/04 CBC w/ auto diff MCHC g/dL 30.0 35.0 32.8 FINAL Randy edward [address] [id number] 0 Phone: () - 03/04 CBC w/ auto diff MPV fL 9.5 13.4 8.4 Low FINAL Randy edward [address] [id number] 0 Phone: () - 03/04 CBC w/ auto diff RDW % 11.3 15.6 12.60 FINAL Randy edward [address] [id number] 0 Phone: () - 06/05 CMP Album in g/dL 3.2 5.2 4.8 FINAL Randy edward [address] [id number] 0 Phone: () - 06/05 CMP Alkal ine phosp hatas e U/L 46.0 116.0 139 High FINAL Randy edward [address] [id number] 0 Phone: () - 06/05 CMP ALT/S GPT U/L 7.0 40.0 27 FINAL Randy edward [address] [id number] 0 Phone: () - 06/05 CMP AST/S GOT U/L 13.0 40.0 24 FINAL Randy edward [address] [id number] 0 Phone: () - 06/05 CMP BUN mg/dL 9.0 23.0 29 High FINAL Randy Ducker [place] [id number] 0 Phone: () - 06/05 CMP Calci um mg/dL 8.7 10.4 10.1 FINAL Randy edward [address] [id number] 0 Phone: () - 06/05 CMP Chlor constance mmol/L 96.0 114.0 106 FINAL Randy Rider[address] [id number] 0 Phone: () - 06/05 CMP CO2 mmol/L 20.0 31.0 28 FINAL Randy Rider[address] [id number] 0 Phone: () - 06/05 CMP Creat inine mg/dL 0.5 1.2 1.47 High FINAL Randy Rider[address] [id number] 0 Phone: () - 06/05 CMP GFR estim ate ml/min /1.73m ^2 47.9 Low GFR is calculate d using the CKD-EPI equation. FINAL Randy Rider[address] [id number] 0 Phone: () - 06/05 CMP Gluco se mg/dL 73.0 126.0 96 FINAL Randy Rider[address] [id number] 0 Phone: () - 06/05 CMP Potas sium mmol/L 3.5 5.1 4.6 FINAL Randy Garduno [address] [id number] 0 Phone: () - 06/05 CMP Sodiu m mmol/L 136.0 145.0 138 FINAL Randy Rider[address] [id number] 0 Phone: () - 06/05 CMP Bilir ubin, total mg/dL 0.3 1.2 0.[address] [place] [id number] 0 Phone: () - 06/05 CMP Total prote in g/dL 5.7 8.2 7.4 FINAL Randy Garduno [address] [id number] 0 Phone: () - 06/05 CBC w/ auto diff WBC K/uL 3.0 8.9 7.0 FINAL Randy edward [address] [id number] 0 Phone: () - 06/05 CBC w/ auto diff HGB g/dL 12.5 16.6 13.2 FINAL Randy Rider[address] [id number] 0 Phone: () - 06/05 CBC w/ auto diff PLT K/uL 113.0 364.0 245 FINAL Randy Rider[address] [id number] 0 Phone: () - 06/05 CBC w/ auto diff Laisha # (ANC) K/uL 1.6 6.6 4.8 FINAL Randy Rider[address] [id number] 0 Phone: () - 06/05 CBC w/ auto diff Laisha % % 43.0 74.0 69.2 FINAL Randy Rider[address] [id number] 0 Phone: () - 06/05 CBC w/ auto diff IG % % 0.0 0.5 0.4 FINAL Randy Garduno [address] [id number] 0 Phone: () - 06/05 CBC w/ auto diff IG # K/uL 0.0 0.03 0.03 FINAL Randy Garduno [address] [id number] 0 Phone: () - 06/05 CBC w/ auto diff LY % % 14.0 41.0 15.9 FINAL Randy Rider [facility] [address] [id number] 0 Phone: () - 06/05 CBC w/ auto diff MO % % 6.0 15.0 9.2 FINAL Randy edward [address] [id number] 0 Phone: () - 06/05 CBC w/ auto diff EO % % 0.0 7.0 3.9 FINAL Randy edward [address] [id number] 0 Phone: () - 06/05 CBC w/ auto diff BA % % 0.0 2.0 1.4 FINAL Randy Rider che[place] [address] [id number] 0 Phone: () - 06/05 CBC w/ auto diff LY # K/uL 0.4 3.6 1.1 FINAL Randy edward [address] [id number] 0 Phone: () - 06/05 CBC w/ auto diff MO # K/uL 0.2 1.3 0.6 FINAL Randy edward [address] [id number] 0 Phone: () - 06/05 CBC w/ auto diff EO # K/uL 0.0 0.6 0.3 FINAL Randy edward [address] [id number] 0 Phone: () - 06/05 CBC w/ auto diff BA # K/uL 0.0 0.2 0.1 FINAL Randy edward [facility] [address] [id number] 0 Phone: () - 06/05 CBC w/ auto diff NRBC % #/100W BC 0.0 0.2 0.0 FINAL Randy edward [facility] [address] [id number] 0 Phone: () - 06/05 CBC w/ auto diff RBC M/uL 4.2 5.6 4.21 FINAL Randy edward [address] [id number] 0 Phone: () - 06/05 CBC w/ auto diff HCT % 39.0 49.0 38.8 Low FINAL Randy edward [address] [id number] 0 Phone: () - 06/05 CBC w/ auto diff MCV fL 80.0 104.0 92.2 FINAL Randy edward [address] [id number] 0 Phone: () - 06/05 CBC w/ auto diff MCH pg 26.0 35.0 31.4 FINAL Randy edward [address] [id number] 0 Phone: () - 06/05 CBC w/ auto diff MCHC g/dL 30.0 35.0 34.0 FINAL Randy edward [address] [id number] 0 Phone: () - 06/05 CBC w/ auto diff MPV fL 9.5 13.4 8.1 Low FINAL Randy edward [address] [id number] 0 Phone: () - 06/05 CBC w/ auto diff RDW % 11.3 15.6 12.70 FINAL Randy edward [address] [id number] 0 Phone: () - 06/06 LDH panel LDH IU/L 125.0 220.0 170 Test Performed by:[facility] [address], [address] - [facility] [place], [place] [id number] e : AC Arriaga 07/02 [facility] other lab See elderly companion lynette 10/03 CBC w/ auto diff WBC K/uL 3.0 8.9 5.4 FINAL Randy edward [address] [id number] 0 Phone: () - 10/03 CBC w/ auto diff HGB g/dL 12.5 16.6 10.9 Low FINAL Randy edward [address] [id number] 0 Phone: () - 10/03 CBC w/ auto diff PLT K/uL 113.0 364.0 197 FINAL Randy edward [address] [id number] 0 Phone: () - 10/03 CBC w/ auto diff Laisha # (ANC) K/uL 1.6 6.6 3.6 FINAL Randy edward [address] [id number] 0 Phone: () - 10/03 CBC w/ auto diff Laisha % % 43.0 74.0 67.0 FINAL Randy edward [address] [id number] 0 Phone: () - 10/03 CBC w/ auto diff IG % % 0.0 0.5 0.9 High FINAL Randy edward [address] [id number] 0 Phone: () - 10/03 CBC w/ auto diff IG # K/uL 0.0 0.03 0.05 High FINAL Randy edward [address] [id number] 0 Phone: () - 10/03 CBC w/ auto diff LY % % 14.0 41.0 19.4 FINAL Randy edward [address] [id number] 0 Phone: () - 10/03 CBC w/ auto diff MO % % 6.0 15.0 8.8 FINAL Randy Garduno [address] [id number] 0 Phone: () - 10/03 CBC w/ auto diff EO % % 0.0 7.0 2.6 FINAL Randy edward [address] [id number] 0 Phone: () - 10/03 CBC w/ auto diff BA % % 0.0 2.0 1.3 FINAL Randy Garduno [address] [id number] 0 Phone: () - 10/03 CBC w/ auto diff LY # K/uL 0.4 3.6 1.0 FINAL Randy edward [address] [id number] 0 Phone: () - 10/03 CBC w/ auto diff MO # K/uL 0.2 1.3 0.5 FINAL Randy Garduno [address] [id number] 0 Phone: () - 10/03 CBC w/ auto diff EO # K/uL 0.0 0.6 0.1 FINAL Randy Garduno [address] [id number] 0 Phone: () - 10/03 CBC w/ auto diff BA # K/uL 0.0 0.2 0.1 FINAL Randy Garduno [address] [id number] 0 Phone: () - 10/03 CBC w/ auto diff NRBC % #/100W BC 0.0 0.2 0.0 FINAL Randy Garduno [address] [id number] 0 Phone: () - 10/03 CBC w/ auto diff RBC M/uL 4.2 5.6 3.46 Low FINAL Randy Rider[address] [id number] 0 Phone: () - 10/03 CBC w/ auto diff HCT % 39.0 49.0 32.5 Low FINAL Randy Garduno [address] [id number] 0 Phone: () - 10/03 CBC w/ auto diff MCV fL 80.0 104.0 93.9 FINAL Randy Rider[address] [id number] 0 Phone: () - 10/03 CBC w/ auto diff MCH pg 26.0 35.0 31.5 FINAL Randy edward [address] [id number] 0 Phone: () - 10/03 CBC w/ auto diff MCHC g/dL 30.0 35.0 33.5 FINAL Randy edward [address] [id number] 0 Phone: () - 10/03 CBC w/ auto diff MPV fL 9.5 13.4 8.4 Low FINAL Randy Rider [place] [address] [id number] 0 Phone: () - 10/03 CBC w/ auto diff RDW % 11.3 15.6 13.60 FINAL Randy edward [address] [id number] 0 Phone: () - 10/03 CMP Album in g/dL 3.2 5.2 4.2 FINAL Randy edward [address] [id number] 0 Phone: () - 10/03 CMP Alkal ine phosp hatas e U/L 46.0 116.0 99 FINAL Randy Rider[address] [id number] 0 Phone: () - 10/03 CMP ALT/S GPT U/L 7.0 40.0 24 FINAL Randy edward [address] [place] [phone] 0 Phone: () - 10/03 CMP AST/S GOT U/L 13.0 40.0 21 FINAL Randy Rider[address] [id number] 0 Phone: () - 10/03 CMP BUN mg/dL 9.0 23.0 26 High FINAL Randy Rider [place] [address] [id number] 0 Phone: () - 10/03 CMP Calci um mg/dL 8.7 10.4 9.5 FINAL Randy Garduno [address] [id number] 0 Phone: () - 10/03 CMP Chlor constance mmol/L 96.0 114.0 109 FINAL Randy Garduno [address] [id number] 0 Phone: () - 10/03 CMP CO2 mmol/L 20.0 31.0 27 FINAL Randy Rider[address] [id number] 0 Phone: () - 10/03 CMP Creat inine mg/dL 0.5 1.2 1.20 FINAL Randy Rider[address] [id number] 0 Phone: () - 10/03 CMP GFR estim ate ml/min /1.73m ^2 61.1 GFR is calculate d using the CKD-EPI equation. FINAL Randy Rider[address] [id number] 0 Phone: () - 10/03 CMP Gluco se mg/dL 73.0 126.0 93 FINAL Randy Rider[address] [id number] 0 Phone: () - 10/03 CMP Potas sium mmol/L 3.5 5.1 4.8 [facility] Randy Rider[address] [id number] 0 Phone: () - 10/03 CMP Sodiu m mmol/L 136.0 145.0 139 FINAL Randy Rider[address] [id number] 0 Phone: () - 10/03 CMP Bilir ubin, total mg/dL 0.3 1.2 0.2 Low FINAL Randy Rider[address] [id number] 0 Phone: () - 10/03 CMP Total prote in g/dL 5.7 8.2 6.7 FINAL Randy edward [facility], [address] [facility] 100 [facility] [id number] 0 Phone: () - 10/03 LDH panel LDH U/L 120.0 246.0 180 FINAL Randy edward [facility], [address] [facility] 100 [facility] [id number] 0 Phone: () - 11/06 Misc other lab See elderly companion d 04/06 LDH panel LDH U/L 120.0 246.0 189 FINAL Randy edward [facility], [address] [id number] 0 Phone: () - 04/06 CBC w/ auto diff WBC K/uL 3.0 8.9 6.2 FINAL Randy edward [facility], [address] [id number] 0 Phone: () - 04/06 CBC w/ auto diff HGB g/dL 12.5 16.6 12.5 FINAL Randy edward [facility], [address] [id number] 0 Phone: () - 04/06 CBC w/ auto diff PLT K/uL 113.0 364.0 238 FINAL Randy edward [facility], [address] [id number] 0 Phone: () - 04/06 CBC w/ auto diff Laisha # (ANC) K/uL 1.6 6.6 4.5 FINAL Randy edward [facility], [address] [id number] 0 Phone: () - 04/06 CBC w/ auto diff Laisha % % 43.0 74.0 73.4 FINAL [place] [address] [id number] 0 Phone: () - 04/06 CBC w/ auto diff IG % % 0.0 0.5 0.3 FINAL Randy edward [facility], [address] [facility] [address] [id number] 0 Phone: () - 04/06 CBC w/ auto diff IG # K/uL 0.0 0.03 0.02 FINAL Randy edward [facility], [address] [facility] [address] [id number] 0 Phone: () - 04/06 CBC w/ auto diff LY % % 14.0 41.0 14.6 FINAL Randy edward [facility], [address] [facility] [address] [id number] 0 Phone: () - 04/06 CBC w/ auto diff MO % % 6.0 15.0 8.3 FINAL Randy edward [facility], [address] [facility] [address] [id number] 0 Phone: () - 04/06 CBC w/ auto diff EO % % 0.0 7.0 2.3 FINAL Randy edward [facility], [address] [id number] 0 Phone: () - 04/06 CBC w/ auto diff BA % % 0.0 2.0 1.1 FINAL Randy edward [facility], [address] [facility] [address] [id number] 0 Phone: () - 04/06 CBC w/ auto diff LY # K/uL 0.4 3.6 0.9 AC edward [facility], [address] [id number] 0 Phone: () - 04/06 CBC w/ auto diff MO # K/uL 0.2 1.3 0.5 FINAL Randy edward [facility], [address] [facility] [address] [id number] 0 Phone: () - 04/06 CBC w/ auto diff EO # K/uL 0.0 0.6 0.1 FINAL Randy edward [facility], [address] [id number] 0 Phone: () - 04/06 CBC w/ auto diff BA # K/uL 0.0 0.2 0.1 FINAL Randy edward [facility], [address] [facility] [address] [place] [id number] 0 Phone: () - 04/06 CBC w/ auto diff NRBC % #/100W BC 0.0 0.2 0.0 FINAL Randy edward [facility] [address] [id number] 0 Phone: () - 04/06 CBC w/ auto diff RBC M/uL 4.2 5.6 3.96 Low FINAL Randy edward [facility] [address] [id number] 0 Phone: () - 04/06 CBC w/ auto diff HCT % 39.0 49.0 37.3 Low FINAL Randy edward [facility] [address] [id number] 0 Phone: () - 04/06 CBC w/ auto diff MCV fL 80.0 104.0 94.2 FINAL Randy edward [facility] [address] [id number] 0 Phone: () - 04/06 CBC w/ auto diff MCH pg 26.0 35.0 31.6 FINAL Randy edward [facility] [address] [id number] 0 Phone: () - 04/06 CBC w/ auto diff MCHC g/dL 30.0 35.0 33.5 FINAL Randy edward [facility] [address] [id number] 0 Phone: () - 04/06 CBC w/ auto diff MPV fL 9.5 13.4 8.5 Low FINAL Randy edward [facility] [address] [facility] [address] [id number] 0 Phone: () - 04/06 CBC w/ auto diff RDW % 11.3 15.6 13.20 FINAL Randy edward [facility] [address] [id number] 0 Phone: () - 04/06 CMP Album in g/dL 3.2 5.2 4.5 FINAL Randy edward [facility], [address] [facility] [address] [id number] 0 Phone: () - 04/06 CMP Alkal ine phosp hatas e U/L 46.0 116.0 118 High FINAL Randy edward [facility] [address] [id number] 0 Phone: () - 04/06 CMP ALT/S GPT U/L 7.0 40.0 21 FINAL Randy edward [place] [address] [id number] 0 Phone: () - 04/06 CMP AST/S GOT U/L 13.0 40.0 20 FINAL Randy Garduno [place] [address] [id number] 0 Phone: () - 04/06 CMP BUN mg/dL 9.0 23.0 30 High FINAL Randy edward [place] [address] [id number] 0 Phone: () - 04/06 CMP Calci um mg/dL 8.7 10.4 10.8 High FINAL Randy edward [place] [address] [id number] 0 Phone: () - 04/06 CMP Chlor constance mmol/L 96.0 114.0 107 FINAL Randy Garduno [place] [address] [id number] 0 Phone: () - 04/06 CMP CO2 [...] 96 hour stability window. FINAL Randy edward [facility], [facility] [address] [id number] 0 Phone: () - 04/06 CMP Creat inine mg/dL 0.5 1.2 1.21 High FINAL Randy edward [facility], [facility] [address] [id number] 0 Phone: () - 04/06 CMP GFR estim ate ml/min /1.73m ^2 60.2 GFR is calculate d using the CKD-EPI equation. FINAL Randy edward [place] [address] [id number] 0 Phone: () - 04/06 CMP Gluco se mg/dL 73.0 126.0 101 FINAL Randy edward [place] [address] [id number] 0 Phone: () - 04/06 CMP Potas sium mmol/L 3.5 5.1 4.8 FINAL Randy edward [place] [address] [id number] 0 Phone: () - 04/06 CMP Sodiu m mmol/L 136.0 145.0 139 FINAL Randy Garduno [place] [address] [id number] 0 Phone: () - 04/06 CMP Bilir ubin, total mg/dL 0.3 1.2 0.3 AC edward [place] [address] [id number] [phone] Phone: () - 04/06 CMP Total prote in g/dL 5.7 8.2 7.2 AC edward [place] [address] [id number] 0 Phone: () - 09/24 CBC w/ auto diff WBC K/uL 3.0 8.9 6.0 FINAL Randy edward [place] [address] [phone] 0 Phone: () - 09/24 CBC w/ auto diff HGB g/dL 12.5 16.6 12.7 AC edward [place] [address] [id number] 0 Phone: () - 09/24 CBC w/ auto diff PLT K/uL 113.0 364.0 229 FINAL Randy edward [facility], [address] [facility] [phone] 0 Phone: () - 09/24 CBC w/ auto diff Laisha # (ANC) K/uL 1.6 6.6 4.1 FINAL Randy edward [facility], [address] [facility] [address] [facility] [phone] 0 Phone: () - 09/24 CBC w/ auto diff Laisha % % 43.0 74.0 69.5 FINAL Randy edward [facility], [address] [facility] [address] [phone] 0 Phone: () - 09/24 CBC w/ auto diff IG % % 0.0 0.5 0.5 FINAL Randy edward [facility], [address] [facility] [address] [phone] 0 Phone: () - 09/24 CBC w/ auto diff IG # K/uL 0.0 0.03 0.03 FINAL Randy edward [facility], [address] [facility] [address] [phone] 0 Phone: () - 09/24 CBC w/ auto diff LY % % 14.0 41.0 18.3 FINAL Randy edward [facility], [address] [facility] [address] [phone] 0 Phone: () - 09/24 CBC w/ auto diff MO % % 6.0 15.0 8.2 FINAL Randy edward [facility], [address] [facility] [address] [phone] 0 Phone: () - 09/24 CBC w/ auto diff EO % % 0.0 7.0 2.2 FINAL Randy edward [facility], [address] [facility] [address] [id number] 0 Phone: () - 09/24 CBC w/ auto diff BA % % 0.0 2.0 1.3 FINAL Randy edward [facility], [address] [facility] [address] [id number] 0 Phone: () - 09/24 CBC w/ auto diff LY # K/uL 0.4 3.6 1.1 FINAL Randy edward [facility], [address] [facility] [address] [phone] 0 Phone: () - 09/24 CBC w/ auto diff MO # K/uL 0.2 1.3 0.5 FINAL Randy edward [facility] [address] [facility] [address] [phone] 0 Phone: () - 09/24 CBC w/ auto diff EO # K/uL 0.0 0.6 0.1 FINAL Randy edward [facility] [address] [facility] [address] [id number] 0 Phone: () - 09/24 CBC w/ auto diff BA # K/uL 0.0 0.2 0.1 FINAL Randy Garduno [facility] [address] [facility] [address] [id number] 0 Phone: () - 09/24 CBC w/ auto diff NRBC % #/100W BC 0.0 0.2 0.0 FINAL Randy Garduno [facility], [address] [id number] 0 Phone: () - 09/24 CBC w/ auto diff RBC M/uL 4.2 5.6 4.07 Low FINAL Randy Garduno [facility], [address] [id number] 0 Phone: () - 09/24 CBC w/ auto diff HCT % 39.0 49.0 37.3 Low FINAL Randy edward [facility], [address] [facility] [address] [id number] 0 Phone: () - 09/24 CBC w/ auto diff MCV fL 80.0 104.0 91.6 FINAL Randy edward [facility], [address] [facility] [address] [id number] 0 Phone: () - 09/24 CBC w/ auto diff MCH pg 26.0 35.0 31.2 FINAL Randy edward [facility], [address] [id number] 0 Phone: () - 09/24 CBC w/ auto diff MCHC g/dL 30.0 35.0 34.0 FINAL Randy edward [place] [address] [id number] 0 Phone: () - 09/24 CBC w/ auto diff MPV fL 9.5 13.4 8.5 Low FINAL Randy edward [place] [address] [id number] 0 Phone: () - 09/24 CBC w/ auto diff RDW % 11.3 15.6 12.90 FINAL Randy Garduno [address] [id number] 0 Phone: () - 09/24 CMP Album in g/dL 3.2 5.2 4.4 FINAL Randy edward [place] [address] [id number] 0 Phone: () - 09/24 CMP Alkal ine phosp hatas e U/L 46.0 116.0 105 FINAL Randy Garduno [place] [address] [id number] 0 Phone: () - 09/24 CMP ALT/S GPT U/L 7.0 40.0 25 FINAL Randy Garduno [place] [address] [id number] 0 Phone: () - 09/24 CMP AST/S GOT U/L 13.0 40.0 20 FINAL Randy Garduno [place] [address] [id number] 0 Phone: () - 09/24 CMP BUN mg/dL 9.0 23.0 23 FINAL Randy edward [place] [address] [id number] 0 Phone: () - 09/24 CMP Calci um mg/dL 8.7 10.4 10.2 FINAL Randy edward [place] [address] [id number] 0 Phone: () - 09/24 CMP Chlor constance mmol/L 96.0 114.0 107 FINAL Randy edward [place] [address] [id number] 0 Phone: () - 09/24 CMP CO2 [...] 96 hour stability window. FINAL Randy edward [address] [id number] 0 Phone: () - 09/24 CMP Creat inine mg/dL 0.5 1.2 1.41 High FINAL Randy Garduno [address] [id number] 0 Phone: () - 09/24 CMP GFR estim ate ml/min /1.73m ^2 53.4 Low GFR is calculate d using the CKD-EPI equation. FINAL Randy edward [place] [address] [id number] 0 Phone: () - 09/24 CMP Gluco se mg/dL 73.0 126.0 104 FINAL Randy edward [place] [address] [id number] 0 Phone: () - 09/24 CMP Potas sium mmol/L 3.5 5.1 4.8 FINAL Randy Garduno [place] [address] [id number] 0 Phone: () - 09/24 CMP Sodiu m mmol/L 136.0 145.0 139 FINAL Randy edward [place] [address] [id number] 0 Phone: () - 09/24 CMP Bilir ubin, total mg/dL 0.3 1.2 0.3 FINAL Randy edward [facility], [address] [facility] [id number] 0 Phone: () - 09/24 CMP Total prote in g/dL 5.7 8.2 7.0 FINAL Randy edward [facility], [address] [facility] [id number] 0 Phone: () - 09/24 LDH panel LDH U/L 120.0 246.0 175 [facility] [address] [facility] [id number] 0 Phone: () - 01/12 Misc other lab See elderly companion d 11/11 Misc other lab See elderly companion d 11/18 Misc other lab See elderly companion d 12/09 LDH panel LDH U/L 120.0 246.0 224 FINAL Augustus Sorensen [facility], [address] [facility] [id number] 0 Phone: () - 12/09 CMP Album in g/dL 3.2 5.2 4.2 FINAL Augustus Sorensen [facility], [address] [facility] [id number] 0 Phone: () - 12/09 CMP Alkal ine phosp hatas e U/L 46.0 116.0 84 FINAL Augustus Edu [facility], [address] [facility] [phone] 0 Phone: () - 12/09 CMP ALT/S GPT U/L 7.0 40.0 28 FINAL Augustus Edu [facility], [address] [facility] [phone] 0 Phone: () - 12/09 CMP AST/S GOT U/L 13.0 40.0 25 FINAL Augustus Edu [facility], [address] [facility] [id number] 0 Phone: () - 12/09 CMP BUN mg/dL 9.0 23.0 21.0 FINAL Augustus [place]ore[place]en [place] [address] [id number] 0 Phone: () - 12/09 CMP Calci um mg/dL 8.7 10.4 9.3 FINAL [place]a [place] [address] [id number] 0 Phone: () - 12/09 CMP Chlor constance mmol/L 96.0 114.0 105 FINAL Augustus Jain [place] [address] [id number] 0 Phone: () - 12/09 CMP CO2 [...] the 96 hour stability window. FINAL [place] [address] [id number] 0 Phone: () - 12/09 CMP Creat inine mg/dL 0.5 1.2 2.02 High FINAL Augustus Edu [place] [address] [id number] 0 Phone: () - 12/09 CMP GFR estim ate ml/min /1.73m ^2 34.4 Low GFR is calculate d using the CKD-EPI equation. FINAL Augustus Jain [place] [address] [id number] 0 Phone: () - 12/09 CMP Gluco se mg/dL 73.0 126.0 97 FINAL [place] [address] [id number] 0 Phone: () - 12/09 CMP Potas sium mmol/L 3.5 5.1 4.8 FINAL [facility] [place] [address] [id number] 0 Phone: () - 12/09 CMP Sodiu m mmol/L 136.0 145.0 139 FINAL Augustus Edu Garduno [facility] [place], [address] [facility] [place] [phone] 0 Phone: () - 12/09 CMP Bilir ubin, total mg/dL 0.3 1.2 0.2 Low FINAL Augustus Edu [facility], [address] [facility] [place] [id number] 0 Phone: () - 12/09 CMP Total prote in g/dL 5.7 8.2 6.7 FINAL Augustus Edu [facility], [address] [facility] [address] [place] [id number] 0 Phone: () - 12/09 CBC w/ auto diff WBC K/uL 3.0 8.9 6.2 FINAL Augustus Edu [facility] [place], [address] [facility] [place] [id number] 0 Phone: () - 12/09 CBC w/ auto diff HGB g/dL 12.5 16.6 12.2 Low FINAL Augustus Edu [facility] [place], [facility] [address] [facility] [place] [phone] 0 Phone: () - 12/09 CBC w/ auto diff PLT K/uL 113.0 364.0 210 FINAL Augustus Edu [facility] [place], [facility] [address] [facility] [place] [phone] 0 Phone: () - 12/09 CBC w/ auto diff Laisha # (ANC) K/uL 1.6 6.6 4.1 FINAL Augustus Edu [facility] [place], [facility] [address] [place] [phone] 0 Phone: () - 12/09 CBC w/ auto diff Laisha % % 43.0 74.0 66.5 FINAL Augustus Edu [facility] [place], [facility] [address] [place] [id number] 0 Phone: () - 12/09 CBC w/ auto diff IG % % 0.0 0.5 0.3 FINAL Augustus Garduno [facility] [place], [address] [place] [phone] 0 Phone: () - 12/09 CBC w/ auto diff IG # K/uL 0.0 0.03 0.02 FINAL Augustus Garduno [facility] [place], [address] [place] [phone] 0 Phone: () - 12/09 CBC w/ auto diff LY % % 14.0 41.0 19.6 FINAL Augustus Garduno [facility] [place], [address] [place] [phone] 0 Phone: () - 12/09 CBC w/ auto diff MO % % 6.0 15.0 9.5 FINAL Augustus Garduno [facility] [place], [address] [place] [phone] 0 Phone: () - 12/09 CBC w/ auto diff EO % % 0.0 7.0 2.7 FINAL Augustus Garduno [facility] [place], [address] [place] [phone] 0 Phone: () - 12/09 CBC w/ auto diff BA % % 0.0 2.0 1.4 FINAL Augustus Garduno [facility] [place], [address] [place] [id number] 0 Phone: () - 12/09 CBC w/ auto diff LY # K/uL 0.4 3.6 1.2 FINAL Augustus Garduno [facility] [place], [address] [place] [phone] 0 Phone: () - 12/09 CBC w/ auto diff MO # K/uL 0.2 1.3 0.6 FINAL Augustus [place]ore[place]en [place] [facility] [place], [address] [place] [phone] 0 Phone: () - 12/09 CBC w/ auto diff EO # K/uL 0.0 0.6 0.2 FINAL Augustus Edu [facility] [place], [address] [place] [phone] 0 Phone: () - 12/09 CBC w/ auto diff BA # K/uL 0.0 0.2 0.1 FINAL Augustus Edu [facility] [place], [address] [place] [phone] 0 Phone: () - 12/09 CBC w/ auto diff NRBC % #/100W BC 0.0 0.2 0.0 FINAL Augustus Edu [facility] [place], [address] [place] [phone] 0 Phone: () - 12/09 CBC w/ auto diff RBC M/uL 4.2 5.6 3.86 Low FINAL Augustus Edu [facility] [place], [address] [place] [phone] 0 Phone: () - 12/09 CBC w/ auto diff HCT % 39.0 49.0 36.3 Low FINAL Augustus Edu [facility] [place], [address] [place] [phone] 0 Phone: () - 12/09 CBC w/ auto diff MCV fL 80.0 104.0 94.0 FINAL Augustus Edu [facility] [place], [address] [place] [id number] 0 Phone: () - 12/09 CBC w/ auto diff MCH pg 26.0 35.0 31.6 FINAL Augustus Edu [facility] [place], [address] [place] [phone] 0 Phone: () - 12/09 CBC w/ auto diff MCHC g/dL 30.0 35.0 33.6 FINAL Augustus edward [facility] [place], [address] [facility] [address] [place] [phone] 0 Phone: () - 12/09 CBC w/ auto diff MPV fL 9.5 13.4 9.0 Low FINAL Augustus edward [facility] [place], [address] [facility] [address] [place] [phone] 0 Phone: () - 12/09 CBC w/ auto diff RDW % 11.3 15.6 12.90 FINAL Augustus edward [facility] [place], [address] [facility] [address] [place] [phone] 0 Phone: () - Medications Date Name [...]
--- OUTSIDE RECORDS SUMMARY | 2024-11-01 19:08 | XMS_ITS ---
Author Name Interface, [id number] lity Address [address] [place] [address] Oncology Address [address] [place] [address] Allergies and Adverse Reactions Plan Reason for Visit Encounters Immunizations Diagnostic Results Medications Problems Vital Signs
--- OUTSIDE RECORDS SUMMARY | 2024-11-01 19:09 | XMS_ITS ---
Author Name Interface, [id number] lity Address [address] [place] [address] [address] [place] [address] [facility] Address [address] [place] [address] [address] [place] [address] Allergies and Adverse Reactions Medication/Group Name Reaction [...] U/L 120.0 246.0 175 FINAL Randy Garduno [facility], [facility] N [facility] [address] [phone] 0 Phone: () - 09/24 CMP Album in g/dL 3.2 5.2 4.4 FINAL Randy Garduno [place] [address] [address] [facility] [address] [phone] 0 Phone: () - 09/24 CMP Alkal ine phosp hatas e U/L 46.0 116.0 105 FINAL [place] [address] [phone] 0 Phone: () - 09/24 CMP ALT/S GPT U/L 7.0 40.0 25 FINAL [place] [address] [phone] 0 Phone: () - 09/24 CMP AST/S GOT U/L 13.0 40.0 20 FINAL Randy Arriaga [place] [address] [id number] 0 Phone: () - 09/24 CMP BUN mg/dL 9.0 23.0 23 FINAL [place] [address] [id number] 0 Phone: () - 09/24 CMP Calci um mg/dL 8.7 10.4 10.2 FINAL Randy Arriaga [place] [address] [phone] 0 Phone: () - 09/24 CMP Chlor constance mmol/L 96.0 114.0 107 FINAL [place] [address] [address] [facility] [address] [id number] 0 Phone: () - 09/24 CMP CO2 [...] 96 hour stability window. FINAL Randy edward [facility], [address] [phone] 0 Phone: () - 09/24 CMP Creat inine mg/dL 0.5 1.2 1.41 High FINAL Randy edward [facility] [address] [id number] 0 Phone: () - 09/24 CMP GFR estim ate ml/min /1.73m ^2 53.4 Low GFR is calculate d using the CKD-EPI equation. FINAL Randy edward [place] [address] [id number] 0 Phone: () - 09/24 CMP Gluco se mg/dL 73.0 126.0 104 FINAL Randy edward [place] [address] [id number] 0 Phone: () - 09/24 CMP Potas sium mmol/L 3.5 5.1 4.8 FINAL Randy edward [place] [address] [id number] 0 Phone: () - 09/24 CMP Sodiu m mmol/L 136.0 145.0 139 FINAL Randy edward [place] [address] [id number] 0 Phone: () - 09/24 CMP Bilir ubin, total mg/dL 0.3 1.2 0.3 FINAL Randy edward [place] [address] [phone] 0 Phone: () - 09/24 CMP Total prote in g/dL 5.7 8.2 7.0 FINAL Randy edward [place] [address] [id number] 0 Phone: () - 09/24 CBC w/ auto diff WBC K/uL 3.0 8.9 6.0 FINAL Randy edward [place] [address] [id number] 0 Phone: () - 09/24 CBC w/ auto diff HGB g/dL 12.5 16.6 12.7 FINAL Randy edward [facility], [address] [facility] 100 [facility] [phone] 0 Phone: () - 09/24 CBC w/ auto diff PLT K/uL 113.0 364.0 229 FINAL Randy edward [facility], [address] [facility] [address] [id number] 0 Phone: () - 09/24 CBC w/ auto diff Laisha # (ANC) K/uL 1.6 6.6 4.1 FINAL Randy edward [facility], [address] [id number] 0 Phone: () - 09/24 CBC w/ auto diff Laisha % % 43.0 74.0 69.5 FINAL Randy edward [facility], [address] [id number] 0 Phone: () - 09/24 CBC w/ auto diff IG % % 0.0 0.5 0.5 FINAL Randy edward [facility], [address] [facility] [address] [id number] 0 Phone: () - 09/24 CBC w/ auto diff IG # K/uL 0.0 0.03 0.03 FINAL Randy edward [facility], [address] [facility] [address] [phone] 0 Phone: () - 09/24 CBC w/ auto diff LY % % 14.0 41.0 18.3 FINAL Randy edward [facility], [address] [facility] [address] [id number] 0 Phone: () - 09/24 CBC w/ auto diff MO % % 6.0 15.0 8.2 FINAL Randy edward [facility], [address] [facility] [address] [id number] 0 Phone: () - 09/24 CBC w/ auto diff EO % % 0.0 7.0 2.2 FINAL Randy edward [facility], [address] [facility] [address] [phone] 0 Phone: () - 09/24 CBC w/ auto diff BA % % 0.0 2.0 1.3 FINAL Randy edward [facility], [address] [id number] 0 Phone: () - 09/24 CBC w/ auto diff LY # K/uL 0.4 3.6 1.1 FINAL Randy edward [facility], [address] [facility] [address] [id number] 0 Phone: () - 09/24 CBC w/ auto diff MO # K/uL 0.2 1.3 0.5 FINAL Randy edward [facility] [address] [id number] 0 Phone: () - 09/24 CBC w/ auto diff EO # K/uL 0.0 0.6 0.1 FINAL Randy edward [facility] [address] [id number] 0 Phone: () - 09/24 CBC w/ auto diff BA # K/uL 0.0 0.2 0.1 FINAL Randy edward [facility] [address] [id number] 0 Phone: () - 09/24 CBC w/ auto diff NRBC % #/100W BC 0.0 0.2 0.0 FINAL Randy edward [facility] [address] [facility] [address] [phone] 0 Phone: () - 09/24 CBC w/ auto diff RBC M/uL 4.2 5.6 4.07 Low FINAL Randy edward [facility] [address] [facility] [address] [phone] 0 Phone: () - 09/24 CBC w/ auto diff HCT % 39.0 49.0 37.3 Low FINAL Randy edward [facility] [address] [facility] [address] [id number] 0 Phone: () - 09/24 CBC w/ auto diff MCV fL 80.0 104.0 91.6 FINAL Randy edward [facility], [address] [facility] [id number] 0 Phone: () - 09/24 CBC w/ auto diff MCH pg 26.0 35.0 31.2 FINAL Randy edward [facility], [address] [facility] [id number] 0 Phone: () - 09/24 CBC w/ auto diff MCHC g/dL 30.0 35.0 34.0 FINAL Randy edward [facility], [address] [facility] [id number] 0 Phone: () - 09/24 CBC w/ auto diff MPV fL 9.5 13.4 8.5 Low FINAL Randy edward [facility], [address] [facility] [id number] 0 Phone: () - 09/24 CBC w/ auto diff RDW % 11.3 15.6 12.90 FINAL Randy edward [facility], [address] [facility] [phone] 0 Phone: () - 01/12 [facility] other lab See grocery store clerk d 11/11 [facility] other lab See grocery store clerk d 11/18 [facility] other lab See grocery store clerk d 12/09 CBC w/ auto diff WBC K/uL 3.0 8.9 6.2 FINAL Augustus Garduno [facility] - [place], [address] [facility] [id number] 0 Phone: () - 12/09 CBC w/ auto diff HGB g/dL 12.5 16.6 12.2 Low FINAL Augustus Riderot a [facility] - [place], [address] [facility] [place] [id number] 0 Phone: () - 12/09 CBC w/ auto diff PLT K/uL 113.0 364.0 210 FINAL Augustus Riderot a [facility] - [place], [address] [facility] [phone] 0 Phone: () - 12/09 CBC w/ auto diff Laisha # (ANC) K/uL 1.6 6.6 4.1 FINAL August[place]ade Garduno a [facility] - [place], [address] [place] [id number] 0 Phone: () - 12/09 CBC w/ auto diff Laisha % % 43.0 74.0 66.5 FINAL [place] Garduno a [facility] - [place], [address] [place] [id number] 0 Phone: () - 12/09 CBC w/ auto diff IG % % 0.0 0.5 0.3 FINAL August[place] Riderot a [facility] - [place], [address] [place] [phone] 0 Phone: () - 12/09 CBC w/ auto diff IG # K/uL 0.0 0.03 0.02 FINAL [place] Garduno a [facility] - [place], [address] [place] [phone] 0 Phone: () - 12/09 CBC w/ auto diff LY % % 14.0 41.0 19.6 FINAL [place] Garduno a [facility] - [place], [address] [place] [phone] 0 Phone: () - 12/09 CBC w/ auto diff MO % % 6.0 15.0 9.5 FINAL [place] Garduno a [facility] - [place], [address] [place] [id number] 0 Phone: () - 12/09 CBC w/ auto diff EO % % 0.0 7.0 2.7 FINAL [place] Garduno a [facility] - [place], [address] [place] [id number] 0 Phone: () - 12/09 CBC w/ auto diff BA % % 0.0 2.0 1.4 FINAL August[place]ade Riderot a [facility] - [place], [address] [place] [phone] 0 Phone: () - 12/09 CBC w/ auto diff LY # K/uL 0.4 3.6 1.2 FINAL Augustus Edu Riderot a On[facility] - [place], [address] [place] [phone] 0 Phone: () - 12/09 CBC w/ auto diff MO # K/uL 0.2 1.3 0.6 FINAL Augustus Edu Riderot a [facility] - [place], [address] [place] [phone] 0 Phone: () - 12/09 CBC w/ auto diff EO # K/uL 0.0 0.6 0.2 FINAL Augustus Edu Riderot a [facility] - [place], [address] [place] [id number] 0 Phone: () - 12/09 CBC w/ auto diff BA # K/uL 0.0 0.2 0.1 FINAL Augustus Edu Riderot a [facility] - [place], [address] [place] [id number] 0 Phone: () - 12/09 CBC w/ auto diff NRBC % #/100W BC 0.0 0.2 0.0 FINAL Augustus Edu Riderot a [facility] - [place], [address] [place] [id number] 0 Phone: () - 12/09 CBC w/ auto diff RBC M/uL 4.2 5.6 3.86 Low FINAL Augustus Edu Riderot a [facility] - [place], [address] [place] [id number] 0 Phone: () - 12/09 CBC w/ auto diff HCT % 39.0 49.0 36.3 Low FINAL Augustus Edu Riderot a [facility] - [place], [address] [place] [id number] 0 Phone: () - 12/09 CBC w/ auto diff MCV fL 80.0 104.0 94.0 FINAL Augustus Edu Garduno a On[facility] - [place], [address] [facility] [address] [place] [phone] 0 Phone: () - 12/09 CBC w/ auto diff MCH pg 26.0 35.0 31.6 FINAL Augustus Edu edward [facility] - [place], [address] [facility] [address] [place] [phone] 0 Phone: () - 12/09 CBC w/ auto diff MCHC g/dL 30.0 35.0 33.6 FINAL Augustus Edu Riderot a [facility] - [place], [address] [facility] [address] [place] [id number] 0 Phone: () - 12/09 CBC w/ auto diff MPV fL 9.5 13.4 9.0 Low FINAL Augustus Edu edward [facility] - [place], [address] [facility] [address] [place] [phone] 0 Phone: () - 12/09 CBC w/ auto diff RDW % 11.3 15.6 12.90 FINAL Augustus Edu edward [facility] - [place], [address] [facility] [address] [place] [phone] 0 Phone: () - 12/09 CMP Album in g/dL 3.2 5.2 4.2 FINAL Augustus Edu Garduno a [facility], [address] [facility] [address] [place] [address] [phone] 0 Phone: () - 12/09 CMP Alkal ine phosp hatas e U/L 46.0 116.0 84 FINAL Augustus Edu Riderot a [facility], [address] [facility] [address] [place] [address] [phone] 0 Phone: () - 12/09 CMP ALT/S GPT U/L 7.0 40.0 28 FINAL Augustus Edu Riderot a [facility], [address] [facility] [address] [place] [address] [phone] 0 Phone: () - 12/09 CMP AST/S GOT U/L 13.0 40.0 25 FINAL [facility] Edu [facility], [address] [facility] 100 [facility] [phone] 0 Phone: () - 12/09 CMP BUN mg/dL 9.0 23.0 21.0 FINAL [facility] Sornesen [facility], [address] [facility] 100 [facility] [phone] 0 Phone: () - 12/09 CMP Calci um mg/dL 8.7 10.4 9.3 FINAL [facility] [address] [facility] 100 [facility] [id number] 0 Phone: () - 12/09 CMP Chlor constance mmol/L 96.0 114.0 105 FINAL [place] [address] [id number] 0 Phone: () - 12/09 CMP CO2 [...] of the 96 hour stability window. FINAL [facility], [facility] N [address] [id number] 0 Phone: () - 12/09 CMP Creat inine mg/dL 0.5 1.2 2.02 High FINAL [facility], [address] [id number] 0 Phone: () - 12/09 CMP GFR estim ate ml/min /1.73m ^2 34.4 Low GFR is calculate d using the CKD-EPI equation. FINAL [facility], [facility] N [facility] [address] [facility] [phone] 0 Phone: () - 12/09 CMP Gluco se mg/dL 73.0 126.0 97 FINAL [facility], [address] [phone] 0 Phone: () - 12/09 CMP Potas sium mmol/L 3.5 5.1 4.8 FINAL [facility] Edu [facility], [address] [id number] 0 Phone: () - 12/09 CMP Sodiu m mmol/L 136.0 145.0 139 FINAL [facility] Sore[place]en [place] [address] [phone] 0 Phone: () - 12/09 CMP Bilir ubin, total mg/dL 0.3 1.2 0.2 Low FINAL [place] [address] [id number] 0 Phone: () - 12/09 CMP Total prote in g/dL 5.7 8.2 6.7 FINAL [place] [address] [phone] 0 Phone: () - 12/09 LDH panel LDH U/L 120.0 246.0 224 FINAL [facility] [place] [address] [phone] 0 Phone: () - Medications Date Name [...]
--- OUTSIDE RECORDS SUMMARY | 2024-11-01 19:09 | XMS_ITS | CCD ---
Author Name Interface, [id number] lity Address [address] [place], [place] [id number] [facility] Address [address] [place] [address] Care Team Providers Care Wind Turbine Installer Name Role Phone Augustus Alaniz Unavailable Unavailable Allergies and Adverse Reactions Care Plan Reason for Visit Functional Status Medications Problems Procedures Social History
--- OUTSIDE RECORDS SUMMARY | 2024-11-01 19:09 | XMS_ITS ---
Author Name Interface, [id number] lity Address [address] [place] [address] [address] [address] [facility] Address [address] [facility] [address] [address] Allergies and Adverse Reactions Medication/Group Name Reaction [...] panel LDH U/L 120.0 246.0 224 FINAL Augutsus Edu Riderot a [facility]cology - [place], [address] [facility] [phone] Phone: () - 12/09 CBC w/ auto diff WBC K/uL 3.0 8.9 6.2 FINAL Augustus [place] [facility], [address] [facility] [phone] 0 Phone: () - 12/09 CBC w/ auto diff HGB g/dL 12.5 16.6 12.2 Low FINAL Augustus Edu Riderot a [facility] - [place], [address] [place] [phone] 0 Phone: () - 12/09 CBC w/ auto diff PLT K/uL 113.0 364.0 210 FINAL Augustus Eud Riderot a On[facility] - [place], [address] [place] [phone] 0 Phone: () - 12/09 CBC w/ auto diff Laisha # (ANC) K/uL 1.6 6.6 4.1 FINAL Augustus Edu Riderot a [facility] - [place], [address] [place] [phone] 0 Phone: () - 12/09 CBC w/ auto diff Laisha % % 43.0 74.0 66.5 FINAL Augustus Edu Riderot a [facility] - [place], [address] [place] [id number] 0 Phone: () - 12/09 CBC w/ auto diff IG % % 0.0 0.5 0.3 FINAL Augustus Edu Riderot a On[facility] - [place], [address] [place] [phone] 0 Phone: () - 12/09 CBC w/ auto diff IG # K/uL 0.0 0.03 0.02 FINAL Aguustus Edu Riderot a Oncology - [place], [address] [place] [id number] 0 Phone: () - 12/09 CBC w/ auto diff LY % % 14.0 41.0 19.6 FINAL Augustus Edu Riderot a Oncology - [place], [address] [place] [phone] 0 Phone: () - 12/09 CBC w/ auto diff MO % % 6.0 15.0 9.5 FINAL Augustus Edu Riderot a Oncology - [place], [address] [place] [id number] 0 Phone: () - 12/09 CBC w/ auto diff EO % % 0.0 7.0 2.7 FINAL Augustus Edu edward Oncology - [place], [address] [place] [phone] 0 Phone: () - 12/09 CBC w/ auto diff BA % % 0.0 2.0 1.4 FINAL Augustus Edu edward Oncology - [place], [address] [place] [phone] 0 Phone: () - 12/09 CBC w/ auto diff LY # K/uL 0.4 3.6 1.2 FINAL Augustus Edu edward Oncology - [place], [address] [place] [phone] 0 Phone: () - 12/09 CBC w/ auto diff MO # K/uL 0.2 1.3 0.6 FINAL Augustus Edu edward Oncology - [place], [address] [place] [phone] 0 Phone: () - 12/09 CBC w/ auto diff EO # K/uL 0.0 0.6 0.2 FINAL Augustus Edu edward Oncology - [place], [address] [place] [phone] 0 Phone: () - 12/09 CBC w/ auto diff BA # K/uL 0.0 0.2 0.1 FINAL Augustus Edu edward Oncology - [place], [address] [place] [id number] 0 Phone: () - 12/09 CBC w/ auto diff NRBC % #/100W BC 0.0 0.2 0.0 FINAL Augustus Edu Garduno a Oncology - [place], [address] [place] [phone] 0 Phone: () - 12/09 CBC w/ auto diff RBC M/uL 4.2 5.6 3.86 Low FINAL Augustus Edu Riderot a Oncology - [place], [address] [place] [id number] 0 Phone: () - 12/09 CBC w/ auto diff HCT % 39.0 49.0 36.3 Low FINAL Augustus Edu Riderot a Oncology - [place], [address] [place] [id number] 0 Phone: () - 12/09 CBC w/ auto diff MCV fL 80.0 104.0 94.0 FINAL Augustus Edu Riderot a [facility] - [place], [address] [place] [id number] 0 Phone: () - 12/09 CBC w/ auto diff MCH pg 26.0 35.0 31.6 FINAL Augustus Edu Riderot a Oncology - [place], [address] [place] [id number] 0 Phone: () - 12/09 CBC w/ auto diff MCHC g/dL 30.0 35.0 33.6 FINAL Augustus Edu Riderot a Oncology - [place], [address] [place] [id number] 0 Phone: () - 12/09 CBC w/ auto diff MPV fL 9.5 13.4 9.0 Low FINAL Augustus Edu Riderot a On[facility] - [place], [address] [place] [id number] 0 Phone: () - 12/09 CBC w/ auto diff RDW % 11.3 15.6 12.90 FINAL Augustus Edu Riderot a Oncology - [place], [address] [place] [phone] 0 Phone: () - 12/09 CMP Album in g/dL 3.2 5.2 4.2 FINAL Augustus Edu Riderot a Oncology - [place], [address] [place] [phone] 0 Phone: () - 12/09 CMP Alkal ine phosp hatas e U/L 46.0 116.0 84 FINAL [place] [address] [address] [facility] [address] [phone] 0 Phone: () - 12/09 CMP ALT/S GPT U/L 7.0 40.0 28 FINAL [facility] [address] [facility] [address] [phone] 0 Phone: () - 12/09 CMP AST/S GOT U/L 13.0 40.0 25 FINAL [place] [address] [address] [facility] [address] [phone] 0 Phone: () - 12/09 CMP BUN mg/dL 9.0 23.0 21.0 FINAL [place] [address] [address] [facility] [address] [phone] 0 Phone: () - 12/09 CMP Calci um mg/dL 8.7 10.4 9.3 FINAL [place] [address] [address] [facility] [address] [phone] 0 Phone: () - 12/09 CMP Chlor constance mmol/L 96.0 114.0 105 FINAL [place] [address] [phone] 0 Phone: () - 12/09 CMP CO2 [...] hour stability window. FINAL [facility], [facility] N [facility] [address] [phone] 0 Phone: () - 12/09 CMP Creat inine mg/dL 0.5 1.2 2.02 High FINAL [facility], [address] [phone] 0 Phone: () - 12/09 CMP GFR estim ate ml/min /1.73m ^2 34.4 Low GFR is calculate d using the CKD-EPI equation. FINAL [facility] Edu [facility], [facility] N [address] [phone] 0 Phone: () - 12/09 CMP Gluco se mg/dL 73.0 126.0 97 FINAL [place] [address] [phone] 0 Phone: () - 12/09 CMP Potas sium mmol/L 3.5 5.1 4.8 FINAL [place] [address] [phone] 0 Phone: () - 12/09 CMP Sodiu m mmol/L 136.0 145.0 139 FINAL [place] [address] [id number] 0 Phone: () - 12/09 CMP Bilir ubin, total mg/dL 0.3 1.2 0.2 Low FINAL [place] [address] [phone] 0 Phone: () - 12/09 CMP Total prote in g/dL 5.7 8.2 6.7 FINAL [place] [address] [phone] 0 Phone: () - Medications Date Name [...] was hospitalized between 01/01 and 01/12 at [facility] for abdominal distention and worsening lower extremity [...] cell (disorder) ( Stage Date: 11/20/2018, Stage ORDNEY Date of Dx:10/2018 Disease Status: Initial presentation; [...]
[2024-11-01 19:11] VITALS: BP 110/51; PULSE 55; RESP 16; O2SAT 95
[2024-11-01] MEDS: ACETAMINOPHEN 500 MG TABLET 1000 MG PO (19:38)
[2024-11-01 21:45] VITALS: BP 143/67; PULSE 52; RESP 16; TEMP 36.6; O2SAT 95
[2024-11-01 22:30] VITALS: BMI 36.1; BMI 36.2
--- NOTE | 2024-11-01 23:41 | PM.IMHP1 ---
Assessment and Plan Assessment and plan (1) Acute knee pain: Problem comment: - etiology not yet determined. Differential includes soft tissue verses hardware complication from prior total knee arthroplasty - orthopedic consultation for tomorrow if possible, as well as Physical therapy and Occupational therapy consultation Status: Acute (2) Chronic pain of right knee: Status: Acute (3) Tobacco use disorder: Problem comment: - 1/2 packs cigarettes daily. In-hospital will use nicotine patch which he states has worked in the past. Status: Acute (4) Osteoarthritis: Status: Acute Plan 1. Reviewed impression, plans, recommendations with patient 2. Answered his questions to his satisfaction 3. Patient understands he is in observation status and may have to pay for his current hospital stay 4. Patient is agreeable with above stated plans and recommendations Total Time Spent Total Time Spent: 60 minutes Hospitalist- H&P: HPI History of Present Illness Date Seen: 11/01/24 Chief complaint: Right knee pain Narrative: Colton Jiménez is a 74 year old man with known chronic right knee pain presents to the emergency department today for assessment of sudden increased pain. He was walking with his cane when he heard a popping sound from his knee around 2:30 PM today and has had markedly increased right knee pain since. If he is still and nonweightbearing he states he has his baseline level of pain which is tolerable. With movement of the knee or weight-bearing the pain is intolerable. He finally came in to the emergency department for assessment of the same. Initial x-ray suggested possible patellar fracture. Subsequent CT scan of the knee did not demonstrate a patellar fracture. Prior total knee arthroplasty noted. No apparent complications from the imaging. Knee immobilizer placed with significant relief. Patient able to demonstrate ability to transfer and take a few steps. With discussion about returning home, patient states he absolutely is not able to do so because he lives alone must climb steps which he believes he is not able to do safely at this time. As such patient is admitted for observation and a consultation is placed for patient to be assessed by Orthopedic surgery in the morning if at all possible as well as Physical therapy and Occupational therapy to establish a safe disposition plan. Noteworthy is that his chronic knee pain is such that he was scheduled to see his orthopedic surgeon this coming Tuesday for a consultation. Review of Systems Status of ROS: Reports: 6 or more systems reviewed and unremarkable except as noted in History and below Narrative: Lives alone. Retired. Still actively smokes a half pack cigarettes daily. History of alcohol use disorder in remission. Medical Decision Making Medical Decision Making Has patient completed a Health Care Directive: Yes During This Stay, Who Would You Like To Make Decisions For You In The Event You Are Unable To Make Them For Yourself?: brother Rush, [facility] Medical History (Updated 11/01/24 @ 23:54 by Arthur Alejandre MD) Diffuse large B-cell lymphoma in remission ?C83.3A - Diffuse large B-cell lymphoma, in remission (ICD-10) Chronic pain of right knee (07/30/16) ?M25.561 - Pain in right knee (ICD-10) ?G89.29 - Other chronic pain (ICD-10) Tobacco use disorder (02/22/07) ?F17.200 - Nicotine dependence, unspecified, uncomplicated (ICD-10) Osteoarthritis ?M19.90 - Unspecified osteoarthritis, unspecified site (ICD-10) Moderate major depression (09/29/17) ?F32.1 - Major depressive disorder, single episode, moderate (ICD-10) Klinefelter's syndrome ?Q98.4 - Klinefelter syndrome, unspecified (ICD-10) Hyperlipidemia ?E78.5 - Hyperlipidemia, unspecified (ICD-10) Benign prostatic hyperplasia without lower urinary tract symptoms (11/20/18) ?N40.0 - Benign prostatic hyperplasia without lower urinary tract symptoms (ICD-10) Alcohol dependence, in remission (05/13/22) ?F10.21 - Alcohol dependence, in remission (ICD-10) Adenomatous colon polyp (11/05/14) ?D12.6 - Benign neoplasm of colon, unspecified (ICD-10) Surgical History History of total right knee replacement (12/28/16) ?Z96.651 - Presence of right artificial knee joint (ICD-10) Family History Father Alcohol dependence Heart disease High blood pressure Brother Blood disease Dementia Mother Stroke Social History What is your current living situation?: I presently have a place to live Problems where you live: no known problems Problems where you live details: n/a In the past 12 months, utilities in danger of being shut off: no In past 12 months, lack of transportation kept you from medical appts, meetings, work, or getting things needed for daily living: no In the past 12 mos, have been you worried that your food would run out before you had money to buy more?: never true In the past 12 mos, the food you bought just didn't last and you didn't have money to buy more?: never true Highest level of school completed/degree received: some college, no degree Smoking Status: Current every day smoker What tobacco products do you use: cigarettes Smoking packs per day: 0.5 Smoking cigarettes per day: 10.0 How often do you have a drink containing alcohol: never AUDIT-C Alcohol total score: 0 Non-prescribed substance use: denies use Caffeine: Yes How often does anyone, including family, friends and others, physically hurt you: never How often does anyone, including family, friends and others, insult or talk down to you: never How often does anyone, including family, friends and others, threaten you with harm: never How often does anyone, including family, friends and others, scream or curse at you: never service: Yes Meds Home Medications and Allergies Home Medications ?Medication ?Instructions ?Recorded ?Confirmed ?Type acetaminophen 325 mg tablet 325 mg PO Q6H PRN 11/18/22 11/01/24 History (Tylenol) acyclovir 400 mg tablet 400 mg PO BID 11/18/22 11/01/24 History famotidine 20 mg tablet 20 mg PO DAILY 11/18/22 11/01/24 History ferrous sulfate 325 mg (65 mg 325 mg PO DAILY 11/18/22 11/01/24 History iron) tablet omeprazole 20 mg capsule,delayed 20 mg PO DAILY 11/18/22 11/01/24 History release primidone 50 mg tablet 50 mg PO QHS 11/18/22 11/01/24 History spironolactone 25 mg tablet 25 mg PO BID 11/18/22 11/01/24 History sulfamethoxazole-trimethoprim 11/18/22 History tamsulosin 0.4 mg capsule (Flomax) 0.4 mg PO DAILY 11/18/22 11/01/24 History venlafaxine 150 mg tablet,extended 150 mg PO DAILY 11/18/22 11/01/24 History release 24 hr nicotine (polacrilex) 4 mg buccal mg PO 11/01/24 History lozenge Allergies Allergy/AdvReac Type Severity Reaction Status Date / Time No Known Drug Allergies Allergy Verified 12/22/22 15:02 Exam Narrative: Exam Narrative: I examined patient in the hospital room. He is comfortable and asleep. He is easily awakened. He has a right knee immobilizer in place and is satisfied. Vision and hearing are adequate. Alert and oriented x3. Expresses anxiety about not being able to smoke while in the hospital. I do not re-examine his right knee. His knee was examined while in the emergency department. Lungs are clear to auscultation. Heart tones with regular rhythm. Abdomen obese with active bowel sounds, soft, nontender. Extremities without edema. Skin is warm, dry, intact. No focal motor neurologic deficits. Const: Vital Signs, click to edit/add: Vital Signs - 24 hr 11/01/24 15:34 11/01/24 19:11 11/01/24 21:45 Temperature 97.3 F L 98 F Pulse Rate [Pulse Oximeter] 61 55 L Pulse Rate [Right Pulse Oximeter] 52 L Respiratory Rate 16 16 16 Blood Pressure [Le ft Arm] 143/67 H Blood Pressure [Ri ght Upper Arm] 118/79 110/51 L Pulse Oximetry 94 95 95 Oxygen Delivery Me thod Room Air Room Air 11/01/24 21:45 Temperature Pulse Rate [Pulse Oximeter] Pulse Rate [Right Pulse Oximeter] Respiratory Rate 16 Blood Pressure [Le ft Arm] Blood Pressure [Ri ght Upper Arm] Pulse Oximetry 95 Oxygen Delivery Me thod Room Air Hospitalist - H&P: Result Imaging X-ray right knee: Attestation: I have reviewed the pertinent imaging results. Radiologist's impression: Findings/Impression: Nondisplaced, transverse fracture of the patella as seen on lateral view. Questionable trace lipohemarthrosis. No additional fractures or malalignment. Postsurgical changes of right total knee arthroplasty and patellar resurfacing without evidence of hardware related complication. Vascular calcifications. CT scan right knee: Radiologist's impression: Findings: Right total knee arthroplasty appears intact. No acute fracture. Intact patella. Normal alignment. No joint effusion. Unchanged partially calcified lesion within distal femur medullary cavity, likely an enchondroma. Atherosclerotic disease. Impression: No acute bony abnormality. Intact right total knee arthroplasty.
[2024-11-02 00:10] VITALS: BP 130/63; PULSE 55; RESP 16; TEMP 36.6; O2SAT 96
[2024-11-02 00:30] VITALS: PULSE 52; RESP 16
[2024-11-02] MEDS: PRIMIDONE 50 MG TABLET PO (00:36)
[2024-11-02] MEDS: ACETAMINOPHEN 325 MG TABLET 650 MG PO ×2 (00:36→07:58)
[2024-11-02 04:08] VITALS: BP 129/63; PULSE 61; RESP 16; TEMP 36.6; O2SAT 95
--- NOTE | 2024-11-02 05:56 | PC.NURSE ---
End of shift note [id number]: Pt A&Ox 4 and able to make needs known. PRN Tylenol given for pain control of R knee. Immobilizer worn to RLE and pt pivot transferring with assist of 1 using SPC?and gait belt. Pt continent of bladder using urinal at bedside. CMS to RLE intact. Pt requested to sleep in his clothes from home. VSS- pt has been afebrile and on RA throughout the shift. Bed alarm on for safety and call light within reach.
[2024-11-02] MEDS: OMEPRAZOLE 20 MG CAPSULE DR PO (07:58)
[2024-11-02 08:00] VITALS: BP 125/59; PULSE 58; RESP 18; TEMP 36.4; O2SAT 93
[2024-11-02] MEDS: TAMSULOSIN HCL 0.4 MG CAPSULE PO (08:56)
[2024-11-02] MEDS: ACYCLOVIR 200 MG CAPSULE 400 MG PO (08:56)
[2024-11-02] MEDS: SPIRONOLACTONE 25 MG TABLET PO (08:56)
[2024-11-02] MEDS: VENLAFAXINE ER 75 MG CAPSULE 150 MG PO (08:56)
[2024-11-02] MEDS: FAMOTIDINE 20 MG TABLET PO (09:23)
[2024-11-02 11:01] VITALS: BP 133/55; PULSE 60; RESP 18; TEMP 36.3; O2SAT 96
--- NOTE | 2024-11-02 11:23 | P.DS_ITS ---
DS: Providers Provider Time Seen by Provider: : Date Seen: 11/02/24 Date of admission: 11/01/24 21:46 Primary care physician: Marin Ramirez MD Admitting Clinician: Arthur Alejandre MD Consults: 11/01/24 23:57 Consult to Occupational Therapy [CONS] Routine Comment: Reason(s) for OT Consult:: Evaluate and Treat Any Restrictions?:: No Restrictions Consult to Physical Therapy [CONS] Routine Comment: Reason(s) for PT Consult:: Evaluate and Treat Any Restrictions?:: No Restrictions Consult to Physician [CONS] Routine Comment: Consulting Provider: Manny Strange Has provider been notified: No Attending Physician on discharge: Bruna Pagan MD Date of Discharge: 11/02/24 DS: Diagnosis Discharge Diagnosis (1) Acute knee pain: Status: Acute Problem details: - 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 Was seen by ortho, PT, and OT today. Okay to remove immobilizer and ambulate with crutches or walker. Doing well in therapies with only acetaminophen for pain. May also use ice, heat, elevation as needed. F/u with ortho in clinic Tuesday as previously scheduled. Adding PT and PT to assess for OT to home health. (2) Chronic pain of right knee: Status: Chronic (3) Tobacco use disorder: Status: Acute Problem details: - 1/2 packs cigarettes daily. In-hospital will use nicotine patch which he states has worked in the past. (4) Osteoarthritis: Status: Acute DS: Summary Hospital Course Hospital Course: Per H&P: Colton Jiménez is a 74 year old man with known chronic right knee pain presents to the emergency department today for assessment of sudden increased pain. He was walking with his cane when he heard a popping sound from his knee around 2:30 PM today and has had markedly increased right knee pain since. If he is still and nonweightbearing he states he has his baseline level of pain which is tolerable. With movement of the knee or weight-bearing the pain is intolerable. He finally came in to the emergency department for assessment of the same. In itial x-ray suggested possible patellar fracture. Subsequent CT scan of the knee did not demonstrate a patellar fracture. Prior total knee arthroplasty noted. No apparent complications from the imaging. Knee immobilizer placed with significant relief. Patient able to demonstrate ability to transfer and take a few steps. With discussion about returning home, patient states he absolutely is not able to do so because he lives alone must climb steps which he believes he is not able to do safely at this time. As such patient is admitted for observation and a consultation is placed for patient to be assessed by Orthopedic surgery in the morning if at all possible as well as Physical therapy and Occupational therapy to establish a safe disposition plan. Noteworthy is that his chronic knee pain is such that he was scheduled to see his orthopedic surgeon this coming Tuesday for a consultation. As above in diagnoses: did well with PT and OT. Ortho assessed and patient is okay to discharge home without immobilizer, use walker or crutches, and increased home services. F/u with Ortho in clinic on Tuesday. Time Spent with Patient Time attestation: Total time spent providing and/or coordinating discharge services: Today I spent 35 minutes discharging the patient, discussing with Orthopedics, reviewing [facility] and EPIC notes/diagnostics/labs, discussing the care plan with our care team that includes social work, PT/OT, pharmacy, RT, senior living and documenting my impressions and plan in the medical record. Exam Narrative: Exam Narrative: General: No acute distress. Awake, alert, oriented. No pallor. No jaundice. Oropharynx: Clear. Mucous membranes moist. Cardiovascular: Regular rate and rhythm. No murmurs, gallops, or rubs. Respiratory: Clear to auscultation bilaterally. No wheezes or crackles. Extremities: No ecchymosis or edema of knees. Well-healed arthroplasty scar of the right knee. No lower extremity edema. Const: Vital Signs, click to edit/add: Vital Signs - 24 hr 11/01/24 15:34 11/01/24 19:11 11/01/24 21:45 Temperature 97.3 F L 98 F Pulse Rate [Pulse Oximeter] 61 55 L Pulse Rate [Right Pulse Oximeter] 52 L Respiratory Rate 16 16 16 Blood Pressure [Le ft Arm] 143/67 H Blood Pressure [Ri ght Arm] Blood Pressure [Ri ght Upper Arm] 118/79 110/51 L Pulse Oximetry 94 95 95 Oxygen Delivery Me thod Room Air Room Air 11/01/24 21:45 11/02/24 00:10 11/02/24 00:30 Temperature 98 F Pulse Rate [Pulse Oximeter] Pulse Rate [Right Pulse Oximeter] 55 L 52 L Respiratory Rate 16 16 16 Blood Pressure [Le ft Arm] 130/63 Blood Pressure [Ri ght Arm] Blood Pressure [Ri ght Upper Arm] Pulse Oximetry 95 96 Oxygen Delivery Me thod Room Air Room Air 11/02/24 04:08 11/02/24 08:00 11/02/24 08:00 Temperature 97.9 F 97.5 F L Pulse Rate [Pulse Oximeter] Pulse Rate [Right Pulse Oximeter] 61 58 L Respiratory Rate 16 18 18 Blood Pressure [Le ft Arm] 129/63 125/59 L Blood Pressure [Ri ght Arm] Blood Pressure [Ri ght Upper Arm] Pulse Oximetry 95 93 93 Oxygen Delivery Me thod Room Air Room Air Room Air 11/02/24 11:01 Temperature 97.4 F L Pulse Rate [Pulse Oximeter] Pulse Rate [Right Pulse Oximeter] 60 Respiratory Rate 18 Blood Pressure [Le ft Arm] Blood Pressure [Ri ght Arm] 133/55 L Blood Pressure [Ri ght Upper Arm] Pulse Oximetry 96 Oxygen Delivery Me thod Room Air DS: Data Data Completed and Pending Completed studies during hospitalization: Ordering Physician: RAOUL DARBY Date of Service: 11/01/24 Procedure(s): XR knee RT 3V Accession Number(s): [id number] cc: RAOUL DARBY; Marin Ramirez M.D.~ For Patients: As a result of the Cures Act, medical imaging exams and procedure reports are released immediately into your electronic medical record. You may view this report before your referring provider. If you have questions, please contact your health care provider. Indication: Fall Technique: Two views of the right knee Comparison: Right knee radiographs on February 20, 2020 Findings/Impression: Nondisplaced, transverse fracture of the patella as seen on lateral view. Questionable trace lipohemarthrosis. No additional fractures or malalignment. Postsurgical changes of right total knee arthroplasty and patellar resurfacing without evidence of hardware related complication. Vascular calcifications. Dictated by Wilfred Maldonado MD @ 11/01/2024 4:11:43 PM (Electronically Signed) Ordering Physician: Nico Zhou D.O. Date of Service: 11/01/24 Procedure(s): CT knee RT wo con Accession Number(s): [id number] cc: Nico Zhou D.O.; Marin Ramirez M.D.~ For Patients: As a result of the 21st Century Cures Act, medical imaging exams and procedure reports are released immediately into your electronic medical record. You may view this report before your referring provider. If you have questions, please contact your health care provider. Indication: Knee pain Technique: Noncontrast CT of the right knee. Comparison: Right knee radiographs 11/01/2024 and 02/20/2020 Findings: Right total knee arthroplasty appears intact. No acute fracture. Intact patella. Normal alignment. No joint effusion. Unchanged partially calcified lesion within distal femur medullary cavity, likely an enchondroma. Atherosclerotic disease. Impression: No acute bony abnormality. Intact right total knee arthroplasty. Please note that all CT scans at this facility use dose modulation, iterative reconstruction, and/or weight-based dosing when appropriate to reduce radiation dose to as low as reasonably achievable. Dictated by Pablito Resendiz MD @ 11/01/2024 7:11:37 PM (Electronically Signed) Discharge Plan Discharge Disposition: Home, Self-Care Date of Admission: 11/01/24 21:46 Attending Provider on Discharge: Bruna Pagan Consulting Providers: Manny Strange Primary Care Provider: Marin Ramirez Condition: Stable Anticipated Discharge Date/Time: 11/02/24 11:50 Discharge Medications: Continued acyclovir 400 mg tablet 400 mg PO BID famotidine 20 mg tablet 20 mg PO DAILY ferrous sulfate 325 mg (65 mg iron) tablet 325 mg PO DAILY omeprazole 20 mg capsule,delayed release(DR/EC) 20 mg PO DAILY primidone 50 mg tablet 50 mg PO QHS spironolactone 25 mg tablet 25 mg PO BID tamsulosin [Flomax] 0.4 mg capsule 0.4 mg PO DAILY venlafaxine 150 mg tablet extended release 24hr 150 mg PO DAILY nicotine (polacrilex) 4 mg lozenge 4 mg PO Q1H PRN sulfamethoxazole-trimethoprim 800-160 mg tablet 1 tab PO BID Rx Instructions: AND TUESDAY ONLY Changed acetaminophen [Tylenol] 325 mg tablet 650 mg PO Q6H PRNQty: 100 0RF Discharge Orders: Discharge Order (Routine); Ordered 11/02/24 Ordered By: Bruna Pagan Patient Education: Knee Pain (ED) Additional Instructions: F/u with ortho clinic Tuesday. Home health - add PT, home health aide for bathing. Extended tub bench. Over the toilet commode. Take Tylenol and ibuprofen for pain. Return to emergency department for new or worsening symptoms or if you are unable to function at home. Activity Level: Activity as Tolerated and Use Walker Activity Detail: Use walker or crutches Discharge Diet: Regular Follow Up Appointments: Marin Ramirez MD [Primary Care Provider, Family Practice] Forms: [employer] Info Instructions
--- NOTE | 2024-11-02 11:34 | PM.ORCN ---
History of Present Illness HPI Time Seen by Provider: 10:45 Date Seen: 11/02/24 Consult date: 11/02/24 Requesting physician: Bruna Pagan Chief complaint: Right knee pain Narrative: Colton is a 74 year-old male with history of a right total knee arthroplasty (2017, Dr. Strange) that presented to [facility] yesterday (11/01/24) after an episode of severe right knee pain while walking upstairs when he heard a pop followed by severe anterior knee pain and was unable to bear weight. Patient lives alone and was admitted for Orthopedic consult, PT/OT cares, pain management and observation. He denies falling to the ground. Imaging showed an age indeterminate transverse patellar fracture. CT returned showing no acute fractures. This morning, he is resting comfortably in his recliner and c/o anterior knee pain, pointing circumferentially around his patella. Yesterday, he c/o severe pain with weightbearing. This morning, I assisted him with standing from a seated position and he reported no right knee pain. His pain appears to be intermittent and well managed with Tylenol only. He is currently utilizing a knee immobilizer, however he says it is quite cumbersome. Denies swelling, ecchymosis, erythema, fever and chills. Associated symptoms include: right quad weakness. Colton has an upcoming appt with Dr. Strange on November 05. [facility] Medical History (Updated 11/02/24 @ 11:57 by Heaven Blum PA-C) Diffuse large B-cell lymphoma in remission ?C83.3A - Diffuse large B-cell lymphoma, in remission (ICD-10) Chronic pain of right knee (07/30/16) ?M25.561 - Pain in right knee (ICD-10) ?G89.29 - Other chronic pain (ICD-10) Tobacco use disorder (02/22/07) ?F17.200 - Nicotine dependence, unspecified, uncomplicated (ICD-10) Osteoarthritis ?M19.90 - Unspecified osteoarthritis, unspecified site (ICD-10) Moderate major depression (09/29/17) ?F32.1 - Major depressive disorder, single episode, moderate (ICD-10) Klinefelter's syndrome ?Q98.4 - Klinefelter syndrome, unspecified (ICD-10) Hyperlipidemia ?E78.5 - Hyperlipidemia, unspecified (ICD-10) Benign prostatic hyperplasia without lower urinary tract symptoms (11/20/18) ?N40.0 - Benign prostatic hyperplasia without lower urinary tract symptoms (ICD-10) Alcohol dependence, in remission (05/13/22) ?F10.21 - Alcohol dependence, in remission (ICD-10) Adenomatous colon polyp (11/05/14) ?D12.6 - Benign neoplasm of colon, unspecified (ICD-10) Surgical History History of total right knee replacement (12/28/16) ?Z96.651 - Presence of right artificial knee joint (ICD-10) Family History Father Alcohol dependence Heart disease High blood pressure Brother Blood disease Dementia Mother Stroke Social History What is your current living situation?: I presently have a place to live Problems where you live: no known problems Problems where you live details: n/a In the past 12 months, utilities in danger of being shut off: no In past 12 months, lack of transportation kept you from medical appts, meetings, work, or getting things needed for daily living: no In the past 12 mos, have been you worried that your food would run out before you had money to buy more?: never true In the past 12 mos, the food you bought just didn't last and you didn't have money to buy more?: never true Highest level of school completed/degree received: some college, no degree Smoking Status: Current every day smoker What tobacco products do you use: cigarettes Smoking packs per day: 0.5 Smoking cigarettes per day: 10.0 How often do you have a drink containing alcohol: never AUDIT-C Alcohol total score: 0 Non-prescribed substance use: denies use Caffeine: Yes How often does anyone, including family, friends and others, physically hurt you: never How often does anyone, including family, friends and others, insult or talk down to you: never How often does anyone, including family, friends and others, threaten you with harm: never How often does anyone, including family, friends and others, scream or curse at you: never service: Yes Meds Home Medications and Allergies Home Medications ?Medication ?Instructions ?Recorded ?Confirmed ?Type acyclovir 400 mg tablet 400 mg PO BID 11/18/22 11/01/24 History famotidine 20 mg tablet 20 mg PO DAILY 11/18/22 11/01/24 History ferrous sulfate 325 mg (65 mg 325 mg PO DAILY 11/18/22 11/01/24 History iron) tablet omeprazole 20 mg capsule,delayed 20 mg PO DAILY 11/18/22 11/01/24 History release primidone 50 mg tablet 50 mg PO QHS 11/18/22 11/01/24 History spironolactone 25 mg tablet 25 mg PO BID 11/18/22 11/01/24 History tamsulosin 0.4 mg capsule (Flomax) 0.4 mg PO DAILY 11/18/22 11/01/24 History venlafaxine 150 mg tablet,extended 150 mg PO DAILY 11/18/22 11/01/24 History release 24 hr nicotine (polacrilex) 4 mg buccal 4 mg PO Q1H PRN 11/01/24 11/02/24 History lozenge acetaminophen 325 mg tablet 650 mg (2 x 325 mg) PO Q6H PRN 11/02/24 11/01/24 Rx (Tylenol) #100 tabs sulfamethoxazole 800 1 tab PO BID 11/02/24 11/02/24 History mg-trimethoprim 160 mg tablet Allergies Allergy/AdvReac Type Severity Reaction Status Date / Time No Known Drug Allergies Allergy Verified 12/22/22 15:02 Ortho Exam Narrative Exam Narrative: Patient is alert and oriented x3. No acute distress. Converses without labored breathing. Right knee exam: No erythema, induration or other cutaneous changes. No effusion. No ecchymosis. TKA surgical scar present and well healed with no sign of infection. Nontender patellar compression. Nontender: patellar tendon, quadriceps tendon, medial/lateral joint line, medial/lateral patellar retinaculum, posterior knee. AROM: 0-120? with mild anterior knee pain. No popping or catching with motion. Stable to varus and valgus at 0? and 30?. Straight leg raise intact, albeit weak in comparison to contralateral leg. Colton is only able to lift his right lower extremity a few inches off his leg rest of his recliner with significant effort. Intact distally with 2+ Dorsalis pedis and Posterior Tibial pulses, digits pink, warm with brisk cap refill. Confirmed sensation distally. Const Vital Signs, click to edit/add: Vital Signs - 24 hr 11/01/24 15:34 11/01/24 19:11 11/01/24 21:45 Temperature 97.3 F L 98 F Pulse Rate [Pulse Oximeter] 61 55 L Pulse Rate [Right Pulse Oximeter] 52 L Respiratory Rate 16 16 16 Blood Pressure [Left Arm] 143/67 H Blood Pressure [Right Arm] Blood Pressure [Right Upper Arm] 118/79 110/51 L Pulse Oximetry 94 95 95 Oxygen Delivery Method Room Air Room Air 11/01/24 21:45 11/02/24 00:10 11/02/24 00:30 Temperature 98 F Pulse Rate [Pulse Oximeter] Pulse Rate [Right Pulse Oximeter] 55 L 52 L Respiratory Rate 16 16 16 Blood Pressure [Left Arm] 130/63 Blood Pressure [Right Arm] Blood Pressure [Right Upper Arm] Pulse Oximetry 95 96 Oxygen Delivery Method Room Air Room Air 11/02/24 04:08 11/02/24 08:00 11/02/24 08:00 Temperature 97.9 F 97.5 F L Pulse Rate [Pulse Oximeter] Pulse Rate [Right Pulse Oximeter] 61 58 L Respiratory Rate 16 18 18 Blood Pressure [Left Arm] 129/63 125/59 L Blood Pressure [Right Arm] Blood Pressure [Right Upper Arm] Pulse Oximetry 95 93 93 Oxygen Delivery Method Room Air Room Air Room Air 11/02/24 11:01 Temperature 97.4 F L Pulse Rate [Pulse Oximeter] Pulse Rate [Right Pulse Oximeter] 60 Respiratory Rate 18 Blood Pressure [Left Arm] Blood Pressure [Right Arm] 133/55 L Blood Pressure [Right Upper Arm] Pulse Oximetry 96 Oxygen Delivery Method Room Air Results Diagnostic results Knee x-ray: report reviewed and image reviewed Knee CT: report reviewed and image reviewed Additional Comments: 3-view right knee images were reviewed from [facility] dated 11/01/24. These show: a chronic, nondisplaced, transverse patellar fracture. Right knee CT reviewed from [facility] dated 11/01/24. This shows: Right total knee arthroplasty appears intact. No acute fracture. Intact patella. Normal alignment. No joint effusion. Unchanged partially calcified lesion within distal femur medullary cavity, likely an enchondroma. Atherosclerotic disease. 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 Status: Acute Assessment and Plan: Considered and ruled out: septic joint, acute patellar fracture, quadriceps tendon tear, patellar tendon tear, MCL/LCL injury. Unable to fully rule out total knee component aseptic loosening without a three phase bone scan, however there is no evidence of this on his imaging in comparison to his previous images. Colton denies a fall directly onto his right knee yesterday. On exam, he denies anterior patellar pain to pressure and there is no effusion nor ecchymosis. Looking back at his previous right knee images, I suspect this patellar fracture occurred after 2019. Colton is unable to recall any previous injuries. I suspect his current pain is due to patellar clunk syndrome, even though I am unable to reproduce popping/catching with range of motion today. Colton has an upcoming appt with Dr. Strange on Tuesday where this will be discussed further. Colton may benefit from an arthroscopic scar tissue debridement surgery. For today, I recommend he discontinue use of the knee immobilizer. I am concerned this would be too cumbersome and cause additional falls. I recommend he continue to work on quad strengthening exercises. These were demonstrated. He may weightbear as tolerated. Patient has a paper script for a two wheeled walker, but he commented he does not want to use. I explained the importance of using this daily in the event that his lower leg gives out. Patient agreed and said he'd use it. I anticipate Colton will be discharged today to home. Follow-up appt TuesdayNovember [address] Strange at our [facility]. All questions were answered. Total time spent: Total time spent is greater than 50% in coordination of care (as documented) at patient's floor/unit and/or counseling patient: (2) Tobacco use disorder: Problem comment: - 1/2 packs cigarettes daily. In-hospital will use nicotine patch which he states has worked in the past. Status: Acute Total time spent: Total time spent is greater than 50% in coordination of care (as documented) at patient's floor/unit and/or counseling patient:
--- NOTE | 2024-11-02 13:25 | PC.SOCIAL ---
Addendum entered by HERMELINDA Ruiz 11/02/24 16:33: Discharge planning: idea worker received a call back from Renée at [facility] stating that if pt were to do outpatient therapies(PT/OT) he could keep all of his current services in place at [facility]. Renée stated that she would have pt's nurse, Sosa, explain that to the pt when she calls him on Tuesday. Social work to follow-up as needed. Original Note: Discharge planning: idea worker met with the pt and his brother, Anthony. Pt will discharge home today and his brother plans to stay with him tonight. Pt also has a close friend that lives in town that can check-in on him. Pt's brother plans to purchase some home supply equipment for the pt from local pharmacy's in [facility] or [employer]; i.e., bedside commode, shower chair and urinal. Pt will be discharged with crutches and a walker to bring home from the hospital. Pt states that he has nursing home services through [facility]. Pt has a nurse named Sosa that comes out once a week to set-up the pt's medications and check vitals. Pt also has a life alert pendant and a homemaker that assists him with laundry, cleaning, groceries, etc. Pt is being recommended for home care PT/PT assess for OT/home health aide for bathing, plus his continued services that he already has through [facility]. idea worker spoke to a nurse named Renée(pt's nurse, Sosa, had left early for the day) at [facility] who said that they do not offer therapy services through [facility]. Renée shared that if the pt wanted to do medical home care services through Medicare, the current nursing home services and homemaking services that pt has now would have to be put on hold with the [facility] and the pt would have to get nursing home through home care, as well. The cannot have a client on their service for just homemaking services. Renée said that is their policy at [facility] since they do not offer therapies. Renée said once the Medicare benefit for medical home care runs out they could resume nursing home services and homemaking services. After explaining this to the pt and his brother they decided that they would wait for Tuesday to come around and talk to the pt's regular nurse through [facility], Pat, and ask her about what to do for the services because the pt really cannot put his homemaker services on hold, as he still will need help with laundry, cleaning, groceries, etc. more so now because he is more immobile with his knee issue. Pt was also nervous about messing around with his public health services without talking to Pat. Pt does also have a follow-up appointment scheduled with Dr. Strange on Tuesday at [facility]. Pt is aware of how to get it contact with the social staff worker department if he has questions arise or decides that he wants to do medical home care services. Pt also has home exercises that he was given from PT here in the hospital that he will do when he gets home. Social work to follow-up as needed.
--- NOTE | 2024-11-02 13:52 | PC.NURSE ---
Shift Summary: Patient pleasant and cooperative. Up with one assist, walker and gait belt. Pain managed with PRN medication, rest/positioning and ice. Vitals stable and WNL. Worked with PT/OT. Tolerating regular diet well. No IV present at discharge. Discharge paperwork reviewed with patient and family. Patient discharged with walker and crutches to use at home. D/C @ 1340 via wheelchair, family to drive home.
== END 2024-11-02 13:40 | disposition home or self-care (01) ==
LOC: ED 21:28 → MEDSURG 21:46
PROVIDERS: Admitting Provider Internal Medicine; Emergency Provider Student in an Organized Health Care Education/Training Program; PCP Family Medicine; Visit Provider Internal Medicine
DX: M25.561 Pain in right knee (principal); M15.0 Primary generalized (osteo)arthritis; Z72.0 Tobacco use
CPT/HCPCS: 73562; 73700; 97116; 97161; 97166; 97530; 97535; 99284; 99285; A9270; G0378; S4990